=== PATIENT | female | born 2000 | race Caucasian/White ===

== ENCOUNTER 2024-04-04 06:13 | Day surgery (SDC) | payer SELFPAY ==
[2024-04-04 06:25] VITALS: BP 114/59; PULSE 56; TEMP 36.2; O2SAT 100; BMI 20.7
[2024-04-04 06:33] LABS: Basophils Absolute Auto 0.1 10^3/uL (0.0-0.1); Basophils Percent Auto 0.7 % (0.2-2.0); Eosinophils Absolute Auto 0.1 10^3/uL (0.0-0.7); Eosinophils Percent Auto 0.8 % (0.9-7.0); Hematocrit 32.3 % (36.0-48.0); Hemoglobin 10.9 g/dL (12.0-16.0); Immature Granulocytes Abs Auto 0.02 10^3/uL (0.00-0.03); Immature Granulocytes Pct Auto 0.3 % (0.0-0.5); Lymphocytes Absolute Auto 2.7 10^3/uL (1.2-3.8); Lymphocytes Percent Auto 34.9 % (20.5-60.0); Mean Corpuscular HGB Conc 33.7 g/dL (29.9-35.2); Mean Corpuscular Hemoglobin 31.1 pg (26.7-34.0); Monocytes Absolute Auto 0.6 10^3/uL (0.3-0.8); Monocytes Percent Auto 7.2 % (1.7-12.0); Neutrophils Absolute Auto 4.3 10^3/uL (1.4-6.5); Neutrophils Percent Auto 56.1 % (43.0-75.0); Platelet Count 169 10^3/uL (150-450); Red Blood Count 3.51 10^6/uL (4.20-5.40); Red Cell Distribution Width 13.5 % (11.0-15.0); White Blood Count 7.7 10^3/uL (4.0-11.0)
[2024-04-04 07:14] LABS: HCG Quantitative 86028 mIU/mL
[2024-04-04] MEDS: LACTATED RINGER'S SOLUTION 1,000 ML 50 ML IV (07:14)
--- NOTE | 2024-04-04 08:18 | PM.ONB ---
Brief Operative Note Date of procedure: 04/04/24 Pre-op diagnosis general: missed Post-op diagnosis: same as pre-op Procedure: NAME OF PROCEDURE: [D&C suction ] PROCEDURE: The patient was taken back to the OR where she was given general anesthesia without difficulty. She was then placed in dorsal lithotomy position, prepped and draped in the normal sterile fashion. A weighted speculum was placed in the patient's vagina and the anterior lip of the cervix was identified and grasped with a single-tooth tenaculum. The patient was then gently dilated using Hegar dilators after we had sounded roughly to 10 cm. The suction curette was then tested. The suction curette was then placed in the patient's uterus and products of conception were removed using an 9-Grenadian suction curette. ?Excellent hemostasis was noted. The patient tolerated the procedure well. Sponge, lap, and needle counts were correct x 2. All instruments were then removed from the patient's vagina. The patient was taken to the Recovery Room in stable condition. ?? Anesthesia: MAC Surgeon: Quinn Wilkins Estimated blood loss (mL): 10 Pathology: other (poc) Condition: stable Disposition: PACU Urinary Catheter Management Urinary Catheter Management Urethral: Cath placed during this visit: no
[2024-04-04 08:19] VITALS: BP 83/41; PULSE 60; TEMP 36.3; O2SAT 95
[2024-04-04 08:34] VITALS: BP 88/51; PULSE 53; O2SAT 97
[2024-04-04 08:50] VITALS: BP 93/63; PULSE 61; O2SAT 100
[2024-04-04 09:30] VITALS: BP 134/54; PULSE 88; O2SAT 100
== END 2024-04-04 09:30 | disposition home or self-care (01) ==
PROVIDERS: PCP Family Medicine; Visit Provider Obstetrics & Gynecology
PROC: (CPT 1965; principal; 2024-04-04 07:30)
DX: O02.1 Missed abortion (principal)
CPT/HCPCS: 59820; 36415; 84702; 85025; 86900; 86901; 88305; J1094; J2704

== ENCOUNTER 2025-08-28 15:53 | Emergency (ER) | payer MEDICAID, SELFPAY ==
--- OUTSIDE RECORDS SUMMARY | 2025-08-14 13:00 | XMS_ITS | Encounter Summary ---
Author Organization [employer] [facility] Address [facility] [id number] [address] [place] [address] Care Team Providers Care See Supervisor Name Role Phone Anne Turner MD Primary Care Provider Brunilda gr Reason for Visit * Reason Comments Care Patient presents for their 6 week visit. Encounter Details Date Type Department Care Team (Latest Contact Info) Description 08/14/2025 1:00 PM ED[facility] [place] [address] [place] [address] care and examination (Primary Dx); Lactating mother Social History Tobacco Use Types Packs/Day Years Used Date Smoking Tobacco: Former Vaping/E-cigarettes Smokeless Tobacco: Never Alcohol Use Standard Drinks/Week Comments Not Currently 0 (1 standard drink = 0.6 oz pur e alcohol) socially C Utilities Answer Date Recorded In the past 12 months has [employer], gas, oil, or water [employer] threatened to shut off services in your home? No 07/01/2025 Social Connection and Isolation Panel Answer Date Recorded In a typical week, how many times do you talk on the phone with family, friends, or neighbors? Three times a week 07/01/2025 How often do you get togethe r with friends or relatives? Three times a week 07/01/2025 How often do you attend chur ch or mormonism services? Patient declined 07/01/2025 Do you belong to any clubs o r organizations such as worship groups, unions, fraternal or athletic groups, or school groups? Patient declined 07/01/2025 How often do you attend meet ings of the clubs or organizations you belong to? Patient declined 07/01/2025 Are you , , di vorced, , never , or living with a partner? Never 07/01/2025 Overall Financial Resource Strain (CARDIA) Answe r Date Recorded How hard is it for you to pa y for the very basics like food, housing, medical care, and heating? Not hard at all 07/01/2025 PHQ-2 Answer Date Recorded Total Score 0 07/01/2025 [facility] Occup[facility] ional [facility] - Occupational Stress Questionnaire Answer Date Recorded Do you feel stress - tense, restless, nervous, or anxious, or unable to sleep at night because your mind is troubled all the time - these days? Only a little 07/01/2025 Exercise Vital Sign Answer Date Recorde d On average, how many days pe r week do you engage in moderate to strenuous exercise (like a brisk walk)? Patient declined On average, how many minutes do you engage in exercise at this level? Patient declined 07/01/2025 PRAPARE - Transportation Answer Date Re corded In the past 12 months, has l ack of transportation kept you from medical appointments or from getting medications? No 06/14 In the past 12 months, has l ack of transportation kept you from meetings, work, or from getting things needed for daily living? No 07/01/2025 Housing Instability Answer Date Recorde d Are you worried or concerned that in the next two months you may not have stable housing that you own, rent or stay in as a part of a household? No 07/03/2025 Childcare Answer Date Recorded Do problems getting child ca re make it difficult for you to work or study? No 07/01/2025 Employment Answer Date Recorded Do you need help finding a [facility] career center and/or a training program? No 07/01/2025 Hunger Screening Answer Date Recorded Within the past 12 months we worried whether our food would run out before we got money to buy more. Never True 08/14/2025 Within the past 12 months th e food we bought just didn't last and we didn't have money to get more. Never True 08/14/2025 Purpose - Life Answer Date Recorded I have a purpose and direction in my life. Stron gly Agree 07/01/2025 Comments No Sex and Gender Information Value Date Recorded Sex Assigned at Not on file Legal Sex Female 11:58 AM EDT Gender Identity Not on file Sexual Orientation Not on file documented as of this encounter Last Filed Vital Signs Vital Sign Reading Time Taken Comments Blood Pressure 100/62 08/14/2025 12:59 PM EDT Pulse - - Temperature - - Respiratory Rate - - Oxygen Saturation - - Inhaled Oxygen Concentration - - Weight 60.3 kg (133 lb) 08/14/2025 12:59 PM EDT Height 170.2 cm (5' 7 ) 08/14/2025 12:59 PM EDT Body Mass Index 20.83 08/14/2025 12:59 PM EDT documented in this encounter Patient Instructions * Attachments The following attachments cannot be sent through Care Everywhere. * control after having a baby (German) * Common problems (German) documented in this encounter Progress Notes * Nicolasa Pierre, TAMMY-PATIENT SAFETY TECH - 08/14/2025 1:00 PM EDT visit Subjective: Corinne Esparza is a 25 y.o. female who presents for a visit. She is 6 weeks following a spontaneous vaginal delivery. The patient denies pain. She is well. The patient has emotional concerns. She feels very anxious / on edge constantly. She was prescribed zoloft at her last visit but did not go pick medication up. EDPS: 7. She denies suicidal / homicidalideations. She has been to a therapist in the past and states she will call to schedule an appointment. Patient is not sexually active. Patient desires none for contraception, states she is not planning to be sexually active at this time. The following portions of the patient's history were reviewed and updated as appropriate: allergies, current medications, past family history, past medical history, past social history, past surgicalhistory and problem list. Review of Systems Pertinent items are noted in HPI. Objective: BP 100/62 Ht 170.2 cm (5' 7 ) Wt 60.3 kg (133 lb) LMP 09/30/2024 Yes BMI 20.83 kg/m?? General: alert, appears stated age and cooperative Breasts: exam deferred Lungs: clear to auscultation bilaterally Heart: regular rate and rhythm Abdomen: soft, non-tender; bowel sounds normal; no masses, no organomegaly Assessment: Corinne was seen today for care. Diagnoses and all orders for this visit: care and examination Lactating mother Plan: 1. Resume all normal activity, including sex with condoms. 2. Discussed risks/benefits/alternatives of contraception options. Advised to wait at least 18 months for future conception. Patient desires: abstinence. 3. All questions answered. 4. Continue with vitamin until finished , and then switch to a woman's multivitamin. 5. Educational material provided. 6. Next pap due 2027. 7. Follow up for annual die mounter exam and / or sooner as needed. LULU Youssef APRN-CNP 08/14/25 1329 documented in this encounter Plan of Treatment Not on file documented as of this encounter Visit Diagnoses Diagnosis care and examination- Primary Lactating mother care and examination of lactating mother documented in this encounter Additional Health Concerns Assessment Noted Time PHQ-9 Depression Total Score: 0 07/01/20 25 6:44 PM EDT documented as of this encounter Care Teams See Supervisor Relationship Specialty Start Date End Date Anne Turner MD PCP - General Family Medicine 10/07/23 documented as of this encounter
[2025-08-28 15:57] VITALS: BP 119/83; PULSE 77; TEMP 36.6; O2SAT 100; BMI 20.4
--- OUTSIDE RECORDS SUMMARY | 2025-08-28 16:10 | XMS_ITS | Encounter Summary ---
Author Organization [employer] tem Address [facility] [id number] [address] [place] [address] Care Team Providers Care Manager Of Radiology Name Role Phone Anne Turner MD Primary Care Provider Brunilda gr Encounter Details Date Type Department Care Team (Late st Contact Info) Description 04/24/2025 Telephone [facility] Obst[facility]necology [address] [place] [address] Erich Luz Elena [place] Social History Tobacco Use Types Packs/Day Years Used Date Smoking Tobacco: Former Vaping/E-cigarettes Smokeless Tobacco: Never Alcohol Use Standard Drinks/Week Comments Not Currently 0 (1 standard drink = 0.6 oz pur e alcohol) socially [facility] Utilities Answer Date Recorded In the past 12 months has th e electric, gas, oil, or water company threatened to shut off services in your home? No 04/23/2025 Overall Financial Resource Strain (CARDIA) Answe r Date Recorded How hard is it for you to pa y for the very basics like food, housing, medical care, and heating? Not hard at all 02/05/2025 PHQ-2 Answer Date Recorded Total Score 2 02/05/2025 PRAPARE - Transportation Answer Date Re corded In the past 12 months, has l ack of transportation kept you from medical appointments or from getting medications? No 04/14 In the past 12 months, has l ack of transportation kept you from meetings, work, or from getting things needed for daily living? No 04/23/2025 Housing Instability Answer Date Recorde d Are you worried or concerned that in the next two months you may not have stable housing that you own, rent or stay in as a part of a household? No 04/23/2025 Childcare Answer Date Recorded Do problems getting child ca re make it difficult for you to work or study? No 02/05/2025 Employment Answer Date Recorded Employment Unknown 04/25/2019 Hunger Screening Answer Date Recorded Within the past 12 months we worried whether our food would run out before we got money to buy more. Never True 04/23/2025 Within the past 12 months th e food we bought just didn't last and we didn't have money to get more. Never True 04/23/2025 Comments Yes Sex and Gender Information Value Date Recorded Sex Assigned at Not on file Legal Sex Female 11:58 AM EDT Gender Identity Not on file Sexual Orientation Not on file documented as of this encounter Miscellaneous Notes * Telephone Encounter - Luz Elena Jung MA - 04/24/2025 3:12 PM EDT Pt called inquiring about labs that were done while in ED on 04/23/25. Pt has seen labs on [employer] but would like someone to go over them with her. Labs are finalized but have not yet been reviewed bya provider. - Luz Elena Jung MA 04/24/25 3:14 PM * Telephone Encounter - Mireya Lai - 04/24/2025 3:12 PM EDT Pt is requesting to talk with someone about results of labs done in L&D on 04/23/25. Pt is most concerned with her iron levels. Pt states she is very tired all the time. Please advise. Thank you * Telephone Encounter - LULU Ortiz - 04/24/2025 3:12 PM EDT Sent pt a [employer] message documented in this encounter Plan of Treatment Not on file documented as of this encounter Visit Diagnoses Not on filedocumented in this encounter Additional Health Concerns Assessment Noted Time PHQ-9 Depression Total Score: 2 02/06/20 25 9:20 AM EDT documented as of this encounter Care Teams Manager Of Radiology Relationship Specialty Start Date End Date Anne Turner MD PCP - General Family Medicine 10/07/23 documented as of this encounter
--- OUTSIDE RECORDS SUMMARY | 2025-08-28 16:10 | XMS_ITS | Patient Health Record ---
Author Organization [facility]ices Address [address] [place], [place] [id number] Care Team Providers Care Aoc Operations Intelligence Officer Name Role Phone Radha Ricardo Unavailable [phone] Allergies No Known Allergies Reason For Referral No Information Medications Medication SIG (Take, Route, Frequency, Duration) Notes Start Date End Date Status Amoxicillin 500 MG 1 capsule Orally Thr ee times a day; Duration: 7 day(s) 04/08/2022 Not-Taking Zoloft Active Clindamycin HCl 300 MG One capsule Orall y Three times per day; Duration: 6 day(s) 05/13/2022 Active Social History Sex Assigned At : Social History Observation Description Sex Assigned At Female Plan Of Treatment No Information
--- OUTSIDE RECORDS SUMMARY | 2025-08-28 16:10 | XMS_ITS | Clinical Summary ---
Author Organization [facility] Healthcare Address [address] [place] [address] Care Team Providers Care Deflash And Wash Operator Name Role Phone Anne Turner MD Primary Care Provider [phone] Allergies No known active allergies Medications MV & Min w/FA-DHA ( Gummies) 0.18-25 MG chewable tablet Chew Acti ve ferrous sulfate 325 (65 Fe) MG EC tablet Take 325 mg by mouth in the morning and at noon Do not crush, chew, or split. Active Active Problems Problem Noted Date Diagnosed Date Stress 02/09/2024 Family History Medical History Relation Name Comments Parkinsonism Maternal Grandfather Migraines Mother CLL Mother's Sister Cancer Mother's Sister Relation Name Status Comments Father Alive Maternal Grandfather Mother Alive Mother's Sister Sister 2 Social History Tobacco Use Types Packs/Day Years Used Date Smoking Tobacco: Never Smokeless Tobacco: Never Tobacco Cessation:Counseling Given: Not Answered Alcohol Use Standard Drinks/Week Comments Yes 0 (1 standard drink = 0.6 oz pur e alcohol) AUDIT-C Answer Date Recorded Q1: How often do you have a drink containing alc ohol? 2-4 times a month 02/09/2024 Q2: How many drinks containi ng alcohol do you have on a typical day when you are drinking? 5 or 6 02/09/2024 Frequency of Binge Drinking Not on file 01/13 PHQ-2 Answer Date Recorded Patient Health Questionnaire-2 Score 3 02/09/2024 Comments No Sex and Gender Information Value Date Recorded Sex Assigned at Not on file Legal Sex Female 6:15 PM EDT Gender Identity Female 12/04/2024 7:27 AM EST Sexual Orientation Not on file Last Filed Vital Signs Vital Sign Reading Time Taken Comments Blood Pressure 102/60 08/09/2024 3:30 PM EDT Pulse 68 02/09/2024 11:45 AM EDT Temperature - - Respiratory Rate - - Oxygen Saturation - - Inhaled Oxygen Concentration - - Weight 58.5 kg (129 lb) 08/09/2024 3:30 PM EDT Height 165.1 cm (5' 5 ) 03/23/2022 12:00 PM EDT Body Mass Index 21.47 03/23/2022 12:00 PM EDT Plan of Treatment Not on file Insurance MEDICAID [place] [address] [id number] Care Teams Deflash And Wash Operator Relationship Specialty Start Date End Date Anne Turner MD PCP - General Family Medicine 03/22/23
--- OUTSIDE RECORDS SUMMARY | 2025-08-28 16:10 | XMS_ITS | Encounter Summary ---
Author Organization [employer] tem Address [id number] [address] [place] [address] Care Team Providers Care Supervisor Al[employer] Fabrication Name Role Phone Anne Turner MD Primary Care Provider Brunilda gr Encounter Details Date Type Department Care Team (Late st Contact Info) Description 06/16/2025 Results Follow-Up [facility] Obstetrics/Gynecology [address] [place] [address] Coleen Demarco, MODEL AND PATTERN SUPERVISOR-[facility] [address] [place] [address] Strep B screen Social History Tobacco Use Types Packs/Day Years Used Date Smoking Tobacco: Former Vaping/E-cigarettes Smokeless Tobacco: Never Alcohol Use Standard Drinks/Week Comments Not Currently 0 (1 standard drink = 0.6 oz pur e alcohol) socially [facility] Utilities Answer Date Recorded In the past 12 months has [employer], gas, oil, or water [employer] threatened to shut off services in your home? No 07/01/2025 Social Connection and Isolation Panel Answer Date Recorded In a typical week, how many times do you talk on the phone with family, friends, or neighbors? Three times a week 07/01/2025 How often do you get togethe r with friends or relatives? Three times a week 07/01/2025 How often do you attend chur or anabaptist services? Patient declined 07/01/2025 Do you belong to any clubs o r organizations such as confucianism groups, unions, fraternal or athletic groups, or [...] Answer Date Recorded Total Score 0 07/01/2025 [facility] - Occupational Stress Questionnaire Answer Date Recorded [...] Recorded Do you need help finding a [employer] career center and/or a training program? No [...] my life. Stron gly Agree 07/01/2025 Comments Yes Sex and Gender Information Value Date Recorded Sex Assigned at Not on file Legal Sex Female 11:58 AM EDT Gender Identity Not on file Sexual Orientation Not on file documented as of this encounter Functional Status documented as of this encounter Plan of Treatment Not on file documented as of this encounter Visit Diagnoses Not on filedocumented in this encounter Additional Health Concerns Assessment Noted Time PHQ-9 Depression Total Score: 2 02/06/20 25 9:20 AM EDT documented as of this encounter Care Teams Supervisor [employer] Relationship Specialty Start Date End Date Anne Turner MD PCP - General Family Medicine 10/07/23 documented as of this encounter
--- OUTSIDE RECORDS SUMMARY | 2025-08-28 16:10 | XMS_ITS | Encounter Summary ---
Author Organization [employer] Address [facility] [id number] [address] [place] [address] Care Team Providers Care Python Architect Name Role Phone Anne Turner MD Primary Care Provider Brunilda gr Encounter Details Date Type Department Care Team (Late st Contact Info) Description 04/23/2025 Telephone [facility] Obstetrics/Gynecology [address] [place] [address] Erich Luz Elena [place] Social History Tobacco Use Types Packs/Day Years [...] on file documented as of this encounter Plan of Treatment Not on file documented as of this encounter Visit Diagnoses Not on filedocumented in this encounter Additional Health Concerns Assessment Noted Time PHQ-9 Depression Total Score: 2 02/06/20 25 9:20 AM EDT documented as of this encounter Care Teams Python Architect Relationship Specialty Start Date End Date Anne Turner MD PCP - General Family Medicine 10/07/23 documented as of this encounter
--- OUTSIDE RECORDS SUMMARY | 2025-08-28 16:10 | XMS_ITS | Encounter Summary ---
Author Organization [facility] Address [facility] [id number] [address] [place] [address] Care Team Providers Care Product Analyst Name Role Phone Anne Turner MD Primary Care Provider Brunilda gr Encounter Details Date Type Department Care Team (Latest Contact Info) Description 06/20/2025 Results Follow-Up [facility] - [place] [address] [place] [address] Nicolasa Pierre, MEDIATOR-TUMBLER MACHINE OPERATOR [address] [place] [address] Ultrasound transabdominal follow up per fetus Social History Tobacco Use Types Packs/Day Years Used Date Smoking Tobacco: Former Vaping/E-cigarettes Smokeless Tobacco: Never Alcohol Use Standard Drinks/Week Comments Not Currently 0 (1 standard drink = 0.6 oz pur e alcohol) socially C Utilities Answer Date Recorded In the past 12 months has [employer], gas, oil, or water [email or web address] threatened to shut off services in your home? No 07/01/2025 Social Connection and Isolation Panel Answer Date Recorded In a typical week, how many times do you talk on the phone with family, friends, or neighbors? Three times a week 07/01/2025 How often do you get togethe r with friends or relatives? Three times a week 07/01/2025 How often do you attend [facility] or episcopalian services? Patient declined 07/01/2025 Do you belong to any clubs o r organizations such as taoist groups, unions, fraternal or athletic groups, or [...] Answer Date Recorded Total Score 0 07/01/2025 [facility] Occupat ional Health - Occupational Stress [...] Recorded Do you need help finding a [employer] career center and/or a training program? No [...] documented as of this encounter Care Teams Product Analyst Relationship Specialty Start Date End Date Gunnerly, Anne Lao MD PCP - General Family Medicine 10/07/23 documented as of this encounter
--- OUTSIDE RECORDS SUMMARY | 2025-08-28 16:11 | XMS_ITS | Clinical Summary ---
Author Organization Guidesly tem Address [id number] [address] [place] [address] Care Team Providers Care Knot Tier Name Role Phone Anne Turner MD Primary Care Provider Brunilda gr Allergies No known active allergies Medications vit no.124/iron/foli c ( VITAMIN ORAL) Take by mouth. Active ibuprofen (MOTRIN) 800 mg tablet Take 1 tablet (800 mg total) by mouth every 8 (eight) hours as needed (cramping). 30 tablet 5 08/14/20 25 Discontinue d(Therapy completed) acetaminophen (TYLENOL) 325 mg tablet Take 3 tablets (975 mg total) by mouth every 8 (eight) hours as needed for pain. 30 tablet 5 08/14/20 25 Discontinue d(Therapy completed) polyethylene glycol (GLYCOLAX) 17 gram/dose powderIndication s:Hemorrhoids, unspecified hemorrhoid type Take 17 g by mouth in the morning. 510 g 3 5 08/14/20 25 Discontinue d(Therapy completed) sertraline (ZOLOFT) 25 mg tabletIndication s: anxiety Take 1 tablet (25 mg total) by mouth in the morning. 30 tablet 5 08/14/20 25 Discontinue d(Patient Never Started This Medication) Active Problems Problem Noted Date Diagnosed Date History of induced 01/15/2025 History of miscarriage 01/15/2025 Resolved Problems Problem Noted Date Diagnosed Date Resolved Date Dizzy 04/23/2025 07/03/2025 Headache 04/23/2025 07/03/2025 Encounters Date Type Department Care Team Description 08/14/2025 1:00 PM EDT Visit [facility] Women's Services [place] [address] care and examination (Primary Dx); Lactating mother 08/14/2025 Travel 07/17/2025 1:00 PM EDT Visit [facility] [place] [address] care following vaginal delivery (Primary Dx); Anemia in , third trimester; Lactating mother; Hemorrhoids, unspecified hemorrhoid type; anxiety 07/17/2025 Travel 07/03/2025 10:50 AM EDT Anesthesia Event [facility] - LD [address] [place] [address] Dwain Briceno MD Gray, Barbara C, PRINCIPAL NETWORK ENGINEER-SAFETY AND SECURITY MANAGER 07/03/2025 5:36 AM EDT - 07/04/2025 5:02 PM EDT Hospital Encounter [facility] [address] [place] [address] Coleen Demarco, PRINCIPAL NETWORK ENGINEER-LUIS ENRIQUEM Anemia in , third trimester Discharge Disposition: Home 07/03/2025 Travel 07/02/2025 1:00 PM EDT [facility] [address] [place] [address] Harper Rivera, [place]: 39w2d 07/02/2025 Travel 07/01/2025 6:38 PM EDT - 07/01/2025 8:12 PM EDT Hospital Encounter [facility] [address] [place] [address] Sarah Carrillo, PRINCIPAL NETWORK ENGINEER-LUIS ENRIQUEM Anemia in , third trimester Discharge Disposition: Home 06/26/2025 11:30 AM EDT Routine [facility] Services - [address] [place] [address] [place]: 38w3d 06/26/2025 Travel 06/23/2025 10:19 PM EDT - 06/24/2025 6:28 AM EDT Hospital Encounter [facility] - LDRP [address] [place] [address] Luz Us MD Anemia in , third trimester Discharge Disposition: Home 06/20/2025 12:01 PM EDT - 06/20/2025 1:40 PM EDT Hospital Encounter [facility] [address] [place] [address] Luz Us MD Anemia in , third trimester Discharge Disposition: Home 06/20/2025 9:03 AM EDT - 06/20/2025 12:00 PM EDT Hospital Encounter [facility] - Ultrasound [address] [address] Nicolasa Pierre, PRINCIPAL NETWORK ENGINEER-MANAGER ART Uterine size-date discrepancy in third trimester Discharge Disposition: Home 06/20/2025 Results Follow-Up [facility] Women's Services - [place] [address] [place] [address] Nicolasa Pierre, PRINCIPAL NETWORK ENGINEER-MANAGER ART Ultrasound transabdominal follow up per fetus 06/20/2025 Travel 06/19/2025 11:45 AM EDT Routine [facility] Women's Services - [place] [address] [place] [address] [place]: 37w3d 06/19/2025 Travel 06/16/2025 Results [facility] [address] [place] [address] Coleen Demarco, PRINCIPAL NETWORK ENGINEER-CNM Strep B screen 06/13/2025 1:36 PM EDT - 06/13/2025 2:24 PM EDT Hospital Encounter [facility] - LDRP [address] [place] [address] Coleen Demarco, PRINCIPAL NETWORK ENGINEER-CNM [place], Anemia in , third trimester Discharge Disposition: Home 06/13/2025 1:00 PM EDT Routine [facility] Obstetric[facility]/Gyneco logy [address] [place] [address] Nicolasa Pierre, PRINCIPAL NETWORK ENGINEER-MANAGER ART [place]: 36w4d 06/13/2025 Travel 06/12/2025 10:00 AM EDT Infusion [facility] On[facility] [address] [place] [phone] Anemia in , third trimester (Primary Dx) 06/12/2025 Travel 06/11/2025 Telephone [facility] Obstetrics/Gyneco logy [address] [place] [address] Luz Elena Jung MA 06/10/2025 9:00 AM EDT Infusion [facility]ia Aguilar [facility] Oncology [address] [place] [phone] Anemia in , third trimester (Primary Dx) 06/07/2025 11:30 AM EDT Infusion [facility] [address] [place] [phone] Anemia in , third trimester (Primary Dx) 06/07/2025 Travel 06/05/2025 9:00 AM EDT Infusion [facility] On[facility] [address] [place] [phone] Anemia in , third trimester (Primary Dx) 06/05/2025 Travel 06/04/2025 Travel 06/03/2025 9:00 AM EDT Infusion [facility] On[facility] [address] [place] [phone] Anemia in , third trimester (Primary Dx) 06/03/2025 Travel 05/28/2025 2:45 PM EDT Routine [facility] Obstetrics/Gyneco logy [address] [place] [address] María Warren MD [place]: 34w2d 05/28/2025 9:30 AM EDT Telemedicine [facility] Benign Hematology [address] [place] [address] Marizol Burden, PRINCIPAL NETWORK ENGINEER-MANAGER ART Anemia complicating , third trimester 05/28/2025 Travel from Last 3 Months Immunizations Immunization Administration Dates Next Due Tdap 04/17/2025 Varicella 07/04/2025() Family History Medical History Relation Name Comments Hypertension Father Hypertension Maternal Grandfather Hypertension Maternal Grandmother Relation Name Status Comments Father Maternal Grandfather Maternal Grandmother Social History Tobacco Use Types Packs/Day Years Used Date Smoking Tobacco: Former Vaping/E-cigarettes Smokeless Tobacco: Never Tobacco Cessation:Counseling Given: Not Answered Alcohol Use Standard Drinks/Week Comments Not Currently 0 (1 standard drink = 0.6 oz pur e alcohol) socially BoardEvalsities Answer Date Recorded In the past 12 months has [email or web address], gas, oil, or water [employer] threatened to shut off services in your home? No 07/01/2025 Social Connection and Isolation Panel Answer Date Recorded In a typical week, how many times do you talk on the phone with family, friends, or neighbors? Three times a week 07/01/2025 How often do you get togethe r with friends or relatives? Three times a week 07/01/2025 How often do you attend [facility] or zoroastrianism services? Patient declined 07/01/2025 Do you belong to any clubs o r organizations such as shinto groups, unions, fraternal or athletic groups, or [...] Answer Date Recorded Total Score 0 07/01/2025 [facility] - Occupational Stress Questionnaire Answer Date Recorded [...] Recorded Do you need help finding a [facility] career center and/or a training program? No [...] on file Sexual Orientation Not on file Last Filed Vital Signs Vital Sign Reading Time Taken Comments Blood Pressure 100/62 08/14/2025 12:59 PM EDT Pulse 58 07/04/2025 3:55 PM EDT Temperature 36.8 C (98.2 F) 07/04/2025 3:55 PM EDT Respiratory Rate 16 07/04/2025 3:55 PM EDT Oxygen Saturation 100% 07/03/2025 12:30 PM EDT Inhaled Oxygen Concentration - - Weight 60.3 kg (133 lb) 08/14/2025 12:59 PM EDT Height 170.2 cm (5' 7 ) 08/14/2025 12:59 PM EDT Body Mass Index 20.83 08/14/2025 12:59 PM EDT Plan of Treatment Health Maintenance Due Date Last Done Comments COVID-19 Vaccine (2024-2 6 season) 2025 03/11/2023, 12/13/2022 Influenza Vaccine 07/15/2025 09/29/2009 Depression Screening 07/01/2026 07/01/2025 Adult BMI Screening 08/14/2026 08/14/2025 Tobacco Screening 08/14/2026 08/14/2025 Pap Smear 02/07/2028 02/06/2025 DTaP,Tdap and Td Vaccines (9 - Td or Tdap) 04/17/2035 04/17/2025, 08/14/2021, 06/25/2013, Additional history exists Medical Devices Not on file Procedures Procedure Name Priority Date/Time Associated Diagnosis Comments ANESTHESIA EPIDURAL BLOCK Routine 07/03/2025 11:11 AM EDT FENTANYL, URINE QUALITATIVE STAT 07/03/2025 7:09 AM EDT DRUG SCREEN, URINE STAT 07/03/2025 7: 09 AM EDT EXTRA TUBES PST TOP Routine 07/03/2025 6 :11 AM EDT EXTRA TUBES Routine 07/03/2025 6:11 AM EDT TYPE AND SCREEN STAT 07/03/2025 6:10 AM EDT CBC (NO DIFF) STAT 07/03/2025 6:10 AM EDT SYPHILIS TOTAL(UNKNOWN SYPHILIS STATUS) STAT 07/03/2025 6:10 AM EDT URINALYSIS STAT 07/01/2025 7:49 PM EDT TYPE AND SCREEN Routine 06/24/2025 12:19 AM EDT CBC (NO DIFF) STAT 06/24/2025 12:19 AM EDT EXTRA TUBES PST TOP Routine 06/24/2025 1 2:18 AM EDT EXTRA TUBES Routine 06/24/2025 12:18 AM EDT SYPHILIS TOTAL(UNKNOWN SYPHILIS STATUS) STAT 06/24/2025 12:18 AM EDT DRUG SCREEN, URINE STAT 06/23/2025 11 :18 PM EDT FENTANYL, URINE QUALITATIVE Routine 06/23/2025 11:18 PM EDT URINALYSIS Routine 06/23/2025 11:18 PM EDT RUPTURE OF MEMBRANE (ALL) STAT 06/20/2025 12:46 PM EDT US PREG TRANSABD FU PER FETU Routine 06/20/2025 9:43 AM EDT Uterine size-date discrepancy in third trimester STREP B SCREEN Routine 06/13/2025 2:26 PM EDT Third trimester PAP SMEAR Routine 02/06/2025 8:50 AM EDT Cervical smear, as part of routine gynecological examination from Last 3 Months or Most Recently Relevant to Health Maintenance Results * PM EPIDURAL (07/03/2025 11:11 AM EDT) Inocencia Keyes APRN-CRNA - 07/03/2025 11:11 AM EDT ADAM Mandel 07/03/2025 11:12 AM Procedure: Epidural Block Patient Location: OB Start Time: 07/03/2025 10:52 AM End Time: 07/03/2025 10:58 AM IV In situ: Peripheral General Information and Staff: Service Provider: ADAM Mandel Placed By: ADAM Mandel Checklist: Patient Identified, IV Checked, Risks and Benefits Discussed, Surgical Consent, Monitors and Equipment Checked, Pre-op Evaluation and Timeout Performed Fire Risk Assessment Score: 0 Epidural: Patient Position: Sitting Prep: Betadine Monitoring: Heart Rate, Security Assurance Specialist, Continuous Pulse Ox, Blood Pressure and Monitor Oxygen Source: Room Air Approach: Midline Location: L3-L4 Injection Technique: YESI w/Air Injection Method: Catheter Secured with: Transparent Dressing and Taped Dressing Type: Transparent, Securing Device and Tape Local Infiltration: Lidocaine 1% Dose: 2 mL Needle and Epidural Catheter: Needle Type: Tuohy Needle Gauge: 18 G Needle Length: 9 cm Needle Insertion Depth: 5 cm Catheter Type: Side Hole Catheter Size: 20 G Catheter at Skin Depth: 11 cm Number of Attempts: 1 Test Dose: Negative and Lidocaine 1.5% with Epinephrine 1:200,000 Dose: 3 mL Date and Time Given: 07/03/2025 10:58 AM Patient Tolerance: Tolerated Well Anesthesia Block Medication Given: bupivacaine in 0.9% NaCl(PF) 0.125 % (1,250 mcg/mL) - epidural 10 mL - 07/03/2025 11:02:00 AM fentaNYL (SUBLIMAZE) injection - epidural 20 mcg - 07/03/2025 11:02:00 AM Injection Assessment: Negative Aspiration for Blood, Negative for S/S of Intravenous or Intrathecal Injection, No Paresthesia on Injection and Negative CSF flow Dwain Briceno MD ANESTHESIA ORDERABLES Final R esult * Fentanyl, Urine Qualitative (07/03/2025 7:09 AM EDT) Only the most recent of2 resultswithin the time period is included. FENTANYL, URINE QUAL. Negative Negative 07/03/2025 3:14 PM EDT [facility] Urine Urine / Unknown 07/03/2025 7 :09 AM EDT 07/03/2025 7:50 AM EDT Narrative [facility] - 07/03/2025 3:14 PM EDT Fentanyl screening cutoff = 5ng/ml This report is intended for use in clinical monitoring or management of patients. us Coleen Demarco PRINCIPAL NETWORK ENGINEER-CNM URINE ORDERABLES Final R esult [facility] [address] [place] [address], * Urine Drug Screen (07/03/2025 7:09 AM EDT) Only the most recent of2 resultswithin the time period is included. AMPHETAMINE/METHAMP Negative Negative 07/03 8:19 AM EDT [facility] Comment:AMPH/METH screening cut off = 1000 ng/mL COCAINE METABOLITE Negative Negative 2024 8:19 AM EDT [facility] Comment:Cocaine screening cu t off value = 300 ng/mL ECSTASY Negative Negative 07/03/2025 8:19 AM EDT [facility] Comment:Ecstasy screening cu t off value = 500 ng/mL METHADONE Negative Negative 07/03/2025 8:19 AM EDT [facility] Comment:Methadone screening cut off value = 300 ng/mL. OPIATES Negative Negative 07/03/2025 8:19 AM EDT [facility] Comment: Opiates screening cut off value = 300 ng/mL This test is used for the detection of codeine, hydrocodone (>1000 ng/mL), morphine and hydromorphone (>900 ng/mL) in urine. OXYCODONE Negative Negative 07/03/2025 8:19 AM EDT [facility] Comment: Oxycodone screening cut off value = 300 ng/mL This test is used for the detection of oxycodone and oxymorphone in urine. PHENCYCLIDINE Negative Negative 07/03/2025 8:19 AM EDT [facility] Comment:Phencyclidine screen ing cut off value = 25 ng/mL CANNABINOIDS Negative Negative 07/03/2025 8:19 AM EDT [facility] Comment:Cannabinoids/THC scr eening cut off value = 50 ng/mL Urine Barbiturates Negative Negative 2024 8:19 AM EDT [facility] Comment:Barbiturates screeni ng cut off value = 200 ng/mL BENZODIAZEPINES Negative Negative 8:19 AM EDT [facility] Comment:Benzodiazepines scre ening cut off value = 200 ng/mL Urine 07/03/2025 7:09 AM EDT 07/03/2025 7:50 AM EDT us Coleen M Nilam PRINCIPAL NETWORK ENGINEER-CNM URINE ORDERABLES Final R esult Performing Organization Address [facility] Co de Phone Number [address] [place] [address], [place] * PST TOP (07/03/2025 6:11 AM EDT) Only the most recent of2 resultswithin the time period is included. Extra Tube Auto Resulted 07/03/2025 8:01 AM EDT [facility] Blood Venous blood / Unknown 07/03/2025 6:11 AM EDT 07/03/2025 6:37 AM EDT Coleen Demarco PRINCIPAL NETWORK ENGINEER-CNM LAB BLOOD ORDERABLES Fin al Result Performing Organization Address [facility] de Phone Number [address] [place] [address], [place] * Syphilis Total (Unknown Syphilis Status) (07/03/2025 6:10 AM EDT) Only the most recent of2 resultswithin the time period is included. SYPHILIS TOTAL <0.2 <=0.8 AI 07/03/2025 3:43 PM EDT [facility] Blood Venous blood / Unknown Venipuncture / Unknown 07/03/2025 6:10 AM EDT 07/03/2025 6:16 AM EDT Narrative [facility] - 07/03/2025 3:43 PM EDT NON REACTIVE No serologic evidence of infection to Treponema pallidum. Repeat testing may be considered in patients with suspected acute or primary syphilis in 2 to 4 weeks. Coleenchris Demarco PRINCIPAL NETWORK ENGINEER-CNM LAB BLOOD ORDERABLES Fin al Result [facility] [address] [place] [address], [place] [phone] * (ABNORMAL) CBC without diff (07/03/2025 6:10 AM EDT) Only the most recent of2 resultswithin the time period is included. WBC 8.3 4 - 11 x10E9/L 07/03/2025 6:26 AM EDT [facility] RBC Count 3.82 3.8 - 5.2 X10E12/L 07/03/2025 6:26 AM EDT [facility] Hemoglobin 12.1 11.7 - 15.5 g/dL 07/03/2025 6:26 AM EDT [facility] Hematocrit 35.4 35 - 47 % 07/03/2025 6:26 AM EDT [facility] MCV 93 80 - 100 fL 07/03/2025 6:26 AM EDT [facility] MCH 31.7 27 - 34 pg 07/03/2025 6:26 AM EDT [facility] MCHC 34.2 32 - 36 g/dL 07/03/2025 6:26 AM EDT [facility] RDW 16.8(H) 11.5 - 15 % 07/03/2025 6:26 AM EDT [facility] Platelet Count 148(L) 150 - 450 X10E9/L 07/03/2025 6:26 AM EDT [facility] MPV 8.9 7 - 12 fL 07/03/2025 6:26 AM EDT [facility] Blood Venous blood / Unknown Venipuncture / Unknown 07/03/2025 6:10 AM EDT 07/03/2025 6:16 AM EDT Coleen Demarco [facility] LAB BLOOD ORDERABLES Fin al Result Performing Organization Address [facility] Co de Phone Number [facility] [address] [place] [address] [place] [address], [place] * Type and screen (07/03/2025 6:10 AM EDT) Only the most recent of2 resultswithin the time period is included. ABO A 07/03/2025 9:04 AM EDT [facility] RH Positive 07/03/2025 9:04 AM EDT [facility] Antibody Screen Negative 07/03/2025 9:04 AM EDT [facility] Blood Venous blood / Unknown Venipuncture / Unknown 07/03/2025 6:10 AM EDT 07/03/2025 6:16 AM EDT Coleen M Nilam [facility] BLOOD BANK TEST ORDERABL ES Edited Result - Final Performing Organization Address City/[facility] Co de Phone Number [facility] [address] [place] [address] [place] [address], [address] [place] [address], [place] * Urinalysis (07/01/2025 7:49 PM EDT) Only the most recent of2 resultswithin the time period is included. COLOR Yellow Yellow 07/01/2025 8:28 PM EDT [facility] TURBIDITY Clear Clear 07/01/2025 8:28 PM EDT [facility] SPECIFIC GRAVITY 1.015 1.003 - 1.035 07/01/2025 8:28 PM EDT [facility] NITRITE Negative Negative 07/01/2025 8:28 PM EDT [facility] PH,URINE 6.5 5.0 - 8.5 07/01/2025 8:28 PM EDT [facility] LEUKOCYTE ESTERASE Negative Negative 07/01/2025 8:28 PM EDT [facility] PROTEIN Negative Negative 07/01/2025 8:28 PM EDT [facility] KETONES (URINE) Negative Negative 8:28 PM EDT [facility] UROBILINOGEN 0.2 eu/dL 0.2 eu/dL, 1.0 eu/dL 07/01/2025 8:28 PM EDT [facility] BILIRUBIN (URINE) Negative Negative 07/01/2025 8:28 PM EDT [facility] BLOOD/HGB Negative Negative 07/01/2025 8:28 PM EDT [facility] GLUCOSE (URINE) Negative Negative, 250 mg/dL 07/01/2025 8:28 PM EDT [facility] Urine Urine / Unknown 07/01/2025 7 :49 PM EDT 07/01/2025 7:52 PM EDT us Sarah Carrillo PRINCIPAL NETWORK ENGINEER-CNM URINE ORDERABLES Fi nal Result [facility] [address] [place] [address] [place] [address], [place] * Rupture of membrane (ALL) (06/20/2025 12:46 PM EDT) RUPTURE OF MEMBRANE Negative Negative 06/20/2025 1:13 PM EDT [facility] Swab Vaginal structure / Unknown 06/20/2025 12:46 PM EDT 06/20/2025 12:50 PM EDT us Luz Us MD BODY FLUIDS AND STOOLS ORDERA BLES Final Result [facility] [address] [place] [address], [place] * Ultrasound transabdominal follow up per fetus (06/20/2025 9:43 AM EDT) Anatomical Region Laterality Modality OB-ELEMENT BURNER Ultrasound 06/20/2025 1:51 PM EDT Narrative 06/20/2025 1:52 PM EDT US PREG TRANSABD FU PER FETU: 06/20/2025 9:09 AM Clinical: Third trimester discrepancy with size and dates. Real-time transabdominal sonography fetus performed There is a single intrauterine in a cephalic presentation. Cardiac activity: 137 bpm. Cervical region is obscured by head. Growth parameters are as follows. BPD- 9.1 cm, 36 weeks 6 day. Head circumference 31.9 cm, 36 weeks 0 day. Abdomen circumference 30.9 cm, 34 weeks 6 day. Femur length 6.8 cm, 35 week 1 day. Average gestational age is 35 week 5 days.. This is appropriate growth compared with ultrasound of 03/18/2025 Estimated weight is 2634 g, 5 pounds and 13 ounces, 13%.. Amniotic fluid volume: MANNY measures 10.8 cm. DVP 3.5 cm. The placenta is posterior, away from cervical os. survey was not performed. Maternal Adnexa: No masses seen. Impression: * Single intrauterine cephalic presentation with cardiac activity. * Average gestational age 35 week 5 day with appropriate interval growth. * Ultrasound PHIL 07/20/2025. * Estimated weight 13%. This is a standard (Level I) ultrasound, which cannot exclude all anomalies with certainty. Finalized by Aj Felix MD on 06/20/2025 1:52 PM Procedure Note Aj Felix MD - 06/20/2025 US PREG TRANSABD FU PER FETU: 06/20/2025 9:09 AM Clinical: Third trimester discrepancy with size and dates. Real-time transabdominal sonography fetus performed There is a single intrauterine in a cephalic presentation. Cardiac activity: 137 bpm. Cervical region is obscured by head. Growth parameters are as follows. BPD- 9.1 cm, 36 weeks 6 day. Head circumference 31.9 cm, 36 weeks 0 day. Abdomen circumference 30.9 cm, 34 weeks 6 day. Femur length 6.8 cm, 35 week 1 day. Average gestational age is 35 week 5 days.. This is appropriate growth compared with ultrasound of 03/18/2025 Estimated weight is 2634 g, 5 pounds and 13 ounces, 13%.. Amniotic fluid volume: MANNY measures 10.8 cm. DVP 3.5 cm. The placenta is posterior, away from cervical os. survey was not performed. Maternal Adnexa: No masses seen. Impression: * Single intrauterine cephalic presentation with cardiacactivity. * Average gestational age 35 week 5 day with appropriate intervalgrowth. * Ultrasound PHIL 07/20/2025. * Estimated weight 13%. This is a standard (Level I) ultrasound, which cannot exclude allfetal anomalies with certainty. Finalized by Aj Felix MD on 06/20/2025 1:52 PM Nicolasa Pierre PRINCIPAL NETWORK ENGINEER-MANAGER ART [facility] [place] ORDERABLES Final Result * Strep B screen (06/13/2025 2:26 PM EDT) CULTURE RESULTS NEGATIVE FOR GROUP B STREPTOCOCCUS BY NUCLEIC ACID AMPLIFICATION 06/14/2025 11:59 PM EDT [facility] Swab (Vagina/Rectum) 06/13/2025 2:26 PM EDT 06/13/2025 2:26 PM EDT Nicolasa Pierre PRINCIPAL NETWORK ENGINEER-MANAGER ART MICROBIOLOGY - GENERAL O RDERABLES Final Result [facility] [address] [place] [address], [place] [phone] * Pap Smear (02/06/2025 8:50 AM EDT) 02/06/2025 8:50 AM EDT 02/06/2025 9:02 AM EDT Narrative [facility] - 02/15/2025 1:22 PM EDT [facility] [address] [place] [address] Gynecologic Cytology Consultation Patient Name:CORINNE ESPARZA:2000 (Age: 24)Gender:FTaken:02/06/2025Reported:02/15/2025Physician(s):WILLIE Vergara CNP ([phone])Copy To: Rec. #:[id number]: #[id number] Final Cytologic Interpretation ThinPrep Pap Test (Cervical): Satisfactory for evaluation. A transformation zone component was not noted. The lack of a transformation zone component in a patient is not unusual. NEGATIVE FOR INTRAEPITHELIAL LESION OR MALIGNANCY. [facility] [place]/02/15/2025 Interpretation performed at [facility], [address] [place] [address], License number: [id number]. Electronically Signed Out By FILIPE Clifton(ASCP) Date of Last Menstrual Period: 09/30/24 Other Clinical Conditions: Z01.419 Motorcycle Designer exam wo/abn findings Z34.92 Source of Specimen ThinPrep Pap Test (Cervical) Thin Prep Pap (ELEMENT BURNER) Fee Code(s): G0145 The Pap test is a screening test with an inherent, but low, probability of error. The Pap test is primarily effective for the diagnosis and prevention of squamous cell carcinoma. Regular screening is critical for prevention. ThinPrep liquid-based slides, which meet the Legal Summer Intern criteria for automated screening, have been screened by the ThinPrep Imaging System (as of 07/31/07) along with an additional manual rescreening by a stopboard assembler and, if indicated, by a pathologist. us Nicolasa LAWSON PATHOLOGY/CYTOLOGY ORDER TREE Final Result COPATH from Last 3 Months or Most Recently Relevant to Health Maintenance Insurance [facility] MEDICAID Advance Directives * Full Code (Latest Code Status on File) Date Activated Date Inactivated Comments 07/03/2025 5:56 AM 07/04/2025 7:27 PM Care Teams Knot Tier Relationship Specialty Start Date End Date Anne Turner MD PCP - General Family Medicine 10/07/23
--- OUTSIDE RECORDS SUMMARY | 2025-08-28 16:11 | XMS_ITS | Encounter Summary ---
Author Organization [facility] Address [address] [place] [address] Care Team Providers Care Assembler Chassis Name Role Phone Anne Turner MD Primary Care Provider [phone] Encounter Details Date Type Department Care Team (Late st Contact Info) Description 08/30/2023 Abstract [facility] [address] [place] [address] Gaby Wood, CNM [address], [place] [id number] Social History Tobacco Use Types Packs/Day Years Used Date Smoking Tobacco: Never Tobacco Cessation:Counseling Given: Not Answered Alcohol Use Standard Drinks/Week Comments Never 0 (1 standard drink = 0.6 oz pur e alcohol) Comments Unknown Sex and Gender Information Value Date Recorded Sex Assigned at Not on file Legal Sex Female 6:15 PM EDT Gender Identity Female 12/04/2024 7:27 AM EST Sexual Orientation Not on file documented as of this encounter Plan of Treatment Not on file documented as of this encounter Visit Diagnoses Not on filedocumented in this encounter Care Teams Assembler Chassis Relationship Specialty Start Date End Date Anne Turner MD PCP - General Family Medicine 03/22/23 documented as of this encounter
--- OUTSIDE RECORDS SUMMARY | 2025-08-28 16:11 | XMS_ITS | Encounter Summary ---
Author Organization [facility] Address [facility] [id number] [address] [place] [address] Care Team Providers Care Pointer Helper Name Role Phone Anne Turner MD Primary Care Provider Brunilda gr Encounter Details Date Type Department Care Team (Latest Contact Info) Description 08/14/2025 Travel Social History Tobacco Use Types Packs/Day Years [...] often do you attend chur ch or taoist services? Patient declined 07/01/2025 Do you belong to any clubs o r organizations such as muslim groups, unions, fraternal or athletic groups, or [...] Answer Date Recorded Total Score 0 07/01/2025 [facility] - Occupational Stress [...] Recorded Do you need help finding a [facility] career center and/or a training [...] documented as of this encounter Care Teams Pointer Helper Relationship Specialty Start Date End Date Gunnerly, Anne Lao MD PCP - General Family Medicine 10/07/23 documented as of this encounter
--- OUTSIDE RECORDS SUMMARY | 2025-08-28 16:12 | XMS_ITS | CCD ---
Author Organization [facility] Care Team Providers Care Province Archivist Name Role Phone PHYSICIAN, DEFAULT Unavailable Unavailable PHYSICIAN, DEFAULT Unavailable Unavailable SHENDGE, VITHAL Unavailable Unavailable SHENDGE, VITHAL Unavailable Unavailable SELF, REFERRED Unavailable Unavailable SELF, REFERRED Unavailable Unavailable PHYSICIAN, DEFAULT Unavailable Unavailable PHYSICIAN, DEFAULT Unavailable Unavailable SELF, REFERRED Unavailable Unavailable POOL, ELODIA E Unavailable Unavailable ANNE LLANES Unavailable Unavailable BEN, DR MEREDITH Friedman Attending Unavailable BEN, DR MEREDITH Friedman Consulting Unavailable BEN, DR MEREDITH Friedman Admitting Unavailable SHRADDHA, DR ANNE Lao Primary Care Unavailable MAGDALENO ESCALANTE Attending Unavailable RYLEE WOOD Attending Unavailable NAIF WOODERIE Lauren Referring Unavailable FLORO, RYLEE L Referring Unavailable FLORORYLEE Attending Unavailable FLORO, RYLEE L Referring Unavailable FLOROMINHE Lauren Attending Unavailable RYLEE WOOD Attending Unavailable Anne Llanes MD Primary Care Provider Unavailable Primary Care Provider Anne Kelly MD Primary Care Provider Anne Llanes MD Primary Care Provider Anne Medina MD Primary Care Provider NICOLASA PIERRE Referring Unavailable WONDERLY, ANNE B Primary Care Unavailable ROBBIE SAM Attending Unavailable KRQUINNZER, NICOLASA M Referring Unavailable ALENALY, ANNE B Primary Care Unavailable KRQUINNZER NICOLASA M Attending Unavailable KRSANTA, NICOLASA M Referring Unavailable SHRADDHA, ANNE B Primary Care Unavailable KRQUINNZER, NICOLASA M Referring Unavailable ALENALY, ANNE B Primary Care Unavailable KRQUINNZER, NICOLASA M Referring Unavailable ALENALY, ANNE B Primary Care Unavailable KRQUINNZER, NICOLASA M Referring Unavailable ALENALY, ANNE B Primary Care Unavailable NAWAF SWENSON Admitting Unavailable NAWAF SWENSON Attending Unavailable SHRADDHA ANNE B Primary Care Unavailable KROTZER, NICOLASA M Referring Unavailable WONDERLY, ANNE B Primary Care Unavailable KROTZER, NICOLASA M Referring Unavailable WONDERLY, ANNE B Primary Care Unavailable KROTZER, NICOLASA M Referring Unavailable WONDERLY, ANNE B Primary Care Unavailable KROTZER, NICOLASA M Referring Unavailable WONDERLY, ANNE B Primary Care Unavailable KROTZER, NICOLASA M Referring Unavailable WONDERLY, ANNE B Primary Care Unavailable KROTSETH, NICOLASA M Referring Unavailable WONDERLY, ANNE B Primary Care Unavailable ROSIE CLARK Admitting Unavailable ROSIE CLARK Attending Unavailable WONDERLY, ANNE B Primary Care Unavailable KROTNICOLASA HINDS M Attending Unavailable KRQUINNZER, NICOLASA M Referring Unavailable WONDERLY, NANE B Primary Care Unavailable JOSSUE, TIBERIU S Admitting Unavailable JOSSUE, TIBERIU S Attending Unavailable WONDERLY, ANNE B Primary Care Unavailable JOSSUE, TIBERIU S Admitting Unavailable JOSSUE, TIBERIU S Attending Unavailable WONDERLY, ANNE B Primary Care Unavailable ANTONY RAMIREZ Admitting Unavailable ANTONY RAMIREZ Attending Unavailable WONDERLY, ANNE B Primary Care Unavailable ROSIE CLARK Admitting Unavailable ROSIE CLARK Attending Unavailable WONDERLY, ANNE B Primary Care Unavailable KRNICOLASA PRATT M Attending Unavailable WONDERLY, ANNE B Referring Unavailable WONDERLY, ANNE B Primary Care Unavailable WONDERLY, ANNE B Referring Unavailable WONDERLY, ANNE B Primary Care Unavailable ROSIE CLARK Attending Unavailable WONDERLY, ANNE B Referring Unavailable WONDERLY, ANNE B Primary Care Unavailable NICOLASA PIERRE M Referring Unavailable WONDERLY, ANNE B Primary Care Unavailable WONDERLY, ANNE B Referring Unavailable WONDERLY, ANNE B Primary Care Unavailable NICOLASA PIERRE M Referring Unavailable WONDERLY, ANNE B Primary Care Unavailable WONDERLY, ANNE B Referring Unavailable WONDERLY, ANNE B Primary Care Unavailable WONDERLY, ANNE B Referring Unavailable WONDERLY, ANNE B Primary Care Unavailable MARÍA BUI Attending Unavailable WONDERLY, ANNE B Referring Unavailable WONDERLY, ANNE B Primary Care Unavailable NICOLASA PIERRE M Attending Unavailable WONDERLY, ANNE B Referring Unavailable WONDERLY, ANNE B Primary Care Unavailable GENEVIEVE TOURE Attending Unavailable WONDERLY, ANNE B Referring Unavailable WONDERLY, ANNE B Primary Care Unavailable MARÍA BUI Attending Unavailable WONDERLY, ANNE B Referring Unavailable WONDERLY, ANNE B Primary Care Unavailable KROTSETH, NICOLASA M Attending Unavailable WONDERLY, ANNE Lao Referring Unavailable WONDERLY, ANNE Lao Primary Care Unavailable WONDERLY, ANNE Lao Referring Unavailable WONDERLY, ANNE Lao Primary Care Unavailable WONDERLY, ANNE Lao Referring Unavailable WONDERLY, ANNE Lao Primary Care Unavailable RACHEL RIVERA Attending Unavailable WONDERLY, ANNE B Referring Unavailable WONDERLY, ANNE Lao Primary Care Unavailable WONDERLY, ANNE Lao Referring Unavailable WONDERLY, ANNE Lao Primary Care Unavailable WONDERLY, ANNE Lao Referring Unavailable WONDERLY, ANNE Lao Primary Care Unavailable Medications Current Medications Medication Drug Class(es) Dates Sig (Normalized) Sig (Original) amoxicillin 500 mg oral capsule (2 sources) Penicillin-class Antibacterial End: 02-06-2025 take 1 capsule by mouth in the morning, then take 1 capsule by mouth at bedtime amoxicillin (AMOXIL) 500 mg capsule Take 1 capsule (500 mg total) by mouth in the morning and 1 capsule (500 mg total) before bedtime. 02/06/2025 Discontinued (Therapy completed) ondansetron 8 mg disintegrating oral tablet (8 sources) Serotonin-3 Receptor Antagonist Start: 07-12-2024 End: 09-08-2024 take 1 tablet by mouth every eight hours for nausea ondansetron ODT (Zofran-ODT) 8 MG disintegrating tablet Indications: Nausea and vomiting during prior to 22 weeks gestation Take 1 tablet (8 mg) by mouth every 8 (eight) hours if needed for nausea or vomiting 20 tablet 1 08/09/2024 09/08/2024 Active MV & Min w/FA-DHA ( Gummies) 0.18-25 MG chewable tablet (9 sources) MV & Mi n w/FA-DHA ( Gummies) 0.18-25 MG chewable tablet Chew Active vit no.124/iron/folic ( VITAMIN ORAL) (20 sources) vit no.124/iron/folic ( VITAMIN ORAL) Take by mouth. vit no. 124/iron/folic ( VITAMIN ORAL) Take by mouth. Active Completed/Discontinued Medications Medication Drug Class(es) Dates Sig (Normalized) Sig (Original) acetaminophen 325 mg oral tablet (5 sources) Start: 07-04-2025 End: 08-14-2025 take 3 tablets by mouth every eight hours as needed for pain acetaminophen (TYLENOL) 325 mg tablet Take 3 tablets (975 mg total) by mouth every 8 (eight) hours as needed for pain. 30 tablet 07/04/2025 08/14/2025 Discontinued (Therapy completed) Start: 07-03-2025 End: 07-04-2025 take 1 tablet by mouth every four hours as needed for pain 650 mg, oral, Every 4 hours PRN, mild pain - pain scale 1-3, Starting on Tue07/03/25 at 1225, benzocaine 200 mg/ml / menthol 5 mg/ml topical spray (1 source) Standardized Chemical Allergen Start: 07-03-2025 End: 07-04-2025 1 Application, topical, As needed, pain, perineum discomfort, Starting on Tue07/03/25 at 1223, , May keep at bedside bisacodyl 10 mg rectal suppository (1 source) Stimulant Laxative Start: 07-04-2025 End: 07-04-2025 10 mg, rectal, Once as needed, constipation, no relief from docusate or senna/docusate, Starting on Tue07/04/25 at 0000, For 1 dose, , Start 2nd day Look-alike/sound-al katina medication - verify indication for use. calcium chloride 0.0014 meq/ml / potassium chloride 0.004 meq/ml / sodium chloride 0.103 meq/ml / sodium lactate 0.028 meq/ml injectable solution (2 sources) Start: 07-03-2025 End: 07-03-2025 take 125 mL intravenously every hour 125 mL/hr, intravenous, Continuous, Starting on Tue07/03/25 at 0600, For 1 day, L&D Pre-Delivery 1 ml carboprost 0.25 mg/ml injection (1 source) Prostaglandin Analog Start: 07-03-2025 End: 07-04-2025 inject 250 ug by intramuscular injection once as needed 250 mcg, intramuscular, Once as needed, hemorrhage management, Starting on Tue07/03/25 at 1223, For 1 dose, , Administer as directed by the provider for hemorrhage management. DO NOT ADMINISTER IV. Contraindicated if patient has a history of asthma or cardiovascular disease. docusate sodium 100 mg oral capsule (1 source) Start: 07-03-2025 End: 07-04-2025 take 100 mg by mouth twice daily 100 mg, oral, 2 times daily, First dose on Tue07/03/25 at 1245, , Look-alike/sound-al katina medication - verify indication for use. ferrous sulfate 325 mg oral tablet (20 sources) Start: 04-10-2025 End: 07-04-2025 take 1 tablet by mouth in the morning ferrous sulfate 325 (65 FE) MG tablet Indications: Anemia in , third trimester Take 1 tablet (325 mg total) by mouth in the morning. 90 tablet 1 04/10/2025 07/04/2025 Discontinued (Stop Taking at Discharge) take 1 tablet by mouth in the mo rning ferrous sulfate 325 (65 Fe) MG EC tablet Take 325 mg by mouth in the morning and at noon Do not crush, chew, or split. Active hydrocortisone 25 mg/ml topical cream (1 source) Corticosteroid Start: 07-03-2025 End: 07-04-2025 1 Application, rectal, As needed, hemorrhoids, Starting on Tue07/03/25 at 1223, , May keep at bedside, Indications: hemorrhoids ibuprofen 800 mg oral tablet (5 sources) Nonsteroidal Anti-inflammatory Drug Start: 07-03-2025 End: 08-14-2025 take 1 tablet by mouth every eight hours as needed ibuprofen (MOTRIN) 800 mg tablet Take 1 tablet (800 mg total) by mouth every 8 (eight) hours as needed (cramping). 30 tablet 07/04/2025 08/14/2025 Discontinued (Therapy completed) iron sucrose (VENOFER) 200 mg in sodium chloride 0.9 % 100 mL IVPB (5 sources) Start: 06-12-2025 End: 06-12-2025 200 mg, intravenous, at 440 mL/hr, Administer over 15 Minutes, Once, On Tue06/12/25 at 1000, For 1 dose, Monitor patient for hypersensitivity reactions for at least 30 minute,s after the infusion. AVOID the use of H1 antihistamines, such as diphenhydramine, as this may worsen hypersensitivity reactions. Have resuscitation equipment and medications available. Monitor patient for hypersensitivity reactions for at least 30 minutes after the infusion. AVOID the use of H1 antihistamines, such as diphenhydramine, as this may worsen hypersensitivity reactions. Have resuscitation equipment and medications available. Start: 06-10-2025 End: 07-28-2025 200 mg, intravenous, at 440 mL/hr, Administer over 15 Minutes, Once, On Tue06/10/25 at 0930, For 1 dose, Monitor patient for hypersensitivity reactions for at least 30 minute,s after the infusion. AVOID the use of H1 antihistamines, such as diphenhydramine, as this may worsen hypersensitivity reactions. Have resuscitation equipment and medications available. Monitor patient for hypersensitivity reactions for at least 30 minutes after the infusion. AVOID the use of H1 antihistamines, such as diphenhydramine, as this may worsen hypersensitivity reactions. Have resuscitation equipment and medications available. Start: 06-07-2025 End: 06-07-2025 200 mg, intravenous, at 440 mL/hr, Administer over 15 Minutes, Once, On Tue06/07/25 at 1145, For 1 dose, Monitor patient for hypersensitivity reactions for at least 30 minute,s after the infusion. AVOID the use of H1 antihistamines, such as diphenhydramine, as this may worsen hypersensitivity reactions. Have resuscitation equipment and medications available. Monitor patient for hypersensitivity reactions for at least 30 minutes after the infusion. AVOID the use of H1 antihistamines, such as diphenhydramine, as this may worsen hypersensitivity reactions. Have resuscitation equipment and medications available. Start: 06-05-2025 End: 06-05-2025 200 mg, intravenous, at 440 mL/hr, Administer over 15 Minutes, Once, On Tue06/05/25 at 0930, For 1 dose, Monitor patient for hypersensitivity reactions for at least 30 minute,s after the infusion. AVOID the use of H1 antihistamines, such as diphenhydramine, as this may worsen hypersensitivity reactions. Have resuscitation equipment and medications available. Monitor patient for hypersensitivity reactions for at least 30 minutes after the infusion. AVOID the use of H1 antihistamines, such as diphenhydramine, as this may worsen hypersensitivity reactions. Have resuscitation equipment and medications available. Start: 06-03-2025 End: 06-03-2025 200 mg, intravenous, at 440 mL/hr, Administer over 15 Minutes, Once, On Tue06/03/25 at 0915, For 1 dose, Monitor patient for hypersensitivity reactions for at least 30 minute,s after the infusion. AVOID the use of H1 antihistamines, such as diphenhydramine, as this may worsen hypersensitivity reactions. Have resuscitation equipment and medications available. Monitor patient for hypersensitivity reactions for at least 30 minutes after the infusion. AVOID the use of H1 antihistamines, such as diphenhydramine, as this may worsen hypersensitivity reactions. Have resuscitation equipment and medications available. lanolin 1000 mg/ml topical cream (1 source) Start: 07-03-2025 End: 07-04-2025 1 Application, topical, As needed, sore/cracked nipples, Starting on Tue07/03/25 at 1223, , May keep at bedside 1 ml methylergonovine maleate 0.2 mg/ml injection (1 source) Ergot Derivative Start: 07-03-2025 End: 07-04-2025 200 mcg, intramuscular, Once as needed, hemorrhage management, Starting on Tue07/03/25 at 1223, For 1 dose, , Administer as directed by the provider for hemorrhage treatment. DO NOT ADMINISTER IV. Contraindicated if patient has a sensitivity or Systolic BP greater than 140 or Diastolic BP greater than 90. Look-alike/sound-a like medication - verify indication for use. miSOPROStol 0.2 mg oral tablet (1 source) Prostaglandin E1 Analog Start: 07-03-2025 End: 07-04-2025 take 800 ug under the tongue once as needed 800 mcg, sublingual, Once as needed, hemorrhage management, Starting on Tue07/03/25 at 1223, For 1 dose, , Administer as directed by the provider for hemorrhage management.Use only if Hypertensive and Asthmatic Look-alike/sound-a like medication - verify indication for use. 1 ml oxytocin 10 unt/ml injection (2 sources) Oxytocic Start: 07-03-2025 End: 07-04-2025 inject 10 [IU] by intramuscular injection once as needed 10 Units, intramuscular, Once as needed, hemorrhage management, Starting on Tue07/03/25 at 1223, For 1 dose, Administer as directed by provider. oxytocin (PITOCIN) bolus from bag solution 10 Units (1 source) Start: 07-03-2025 End: 07-04-2025 10 Units, intravenous, Administer over 30 Minutes, Once as needed, post-delivery hemostasis, Starting on Tue07/03/25 at 1035, For 1 dose, , Administer via programmable pump with lactated ringers solution oxytocin (PITOCIN) infusion 30 units/500 mL in lactated ringers (0.06 units/mL premix) (1 source) Start: 07-03-2025 End: 07-03-2025 1-20 richy-units/min (1-20 mL/hr), intravenous, Titrated, Starting on Tue07/03/25 at 0645, L&D Pre-Delivery, Administer via programmable infusion pump. Starting rate is 1 milliunit/minute.T itrate by 2 milliunit/min every 30 minutes until 5 or less contractions occur in a 10 minute segment, averaged over a 30 minute period. Discontinue infusion for the following abnormal FHR tracings: -Category 3 FHR -Category 2 FHR with significant decelerations for greater than 50% of contractions, lasting longer than 60 minutes despite conservative therapeutic interventions -Minimal variability without accelerations that persist for 60 minutes despite conservative therapeutic interventions -Prolonged deceleration not resolved with conservative therapeutic interventions *Tachysystole is defined by the NICHD as more than five contractions in ten minutes, averaged over a 30-minute window., When Tachysystole is present while oxytocin is infusing, and heart rate (FHR) tracing is: Category 1: 1. Perform a maternal position change and give IV bolus of Lactated Ringers 500mL at a rate of 968 mLs/hour for a max of 1,000 mLs, observe for ten minutes. 2. If tachysystole continues, then decrease oxytocin rate by half, observe for 20 minutes, and notify provider. 3. If tachysystole does not resolve, discontinue oxytocin and notify provider. Category 2 with moderate variability and no significant decelerations: 1. Decrease oxytocin rate by half, change maternal position, give IV bolus of Lactated Ringers 500mL at a rate of 968 mLs/hour for a max of 1000 mLs, observe for 20 minutes, and notify provider. 2. If tachysystole does not resolve, discontinue oxytocin and notify provider. Category 2 with significant decelerations or Category 3: 1. Discontinue oxytocin, change maternal position, give IV bolus of Lactated Ringers 500mL at a rate of 968 mLs/hour for a max of 1000 mLs, administer oxygen via non-rebreather mask at 10L, and notify provider. If after at least a 30-minute period of observation, tachysystole resolves and pre-oxytocin checklist criteria is met, may restart oxytocin infusion at: Half of last infusing rate if oxytocin is off for less than 40 minutes. Beginning rate if oxytocin is off for greater than 40 minutes. [Maximum dose 20 milliunits/min unless specifically ordered otherwise by provider]. 1 mL/hour = 1 richy-unit/min PNV,calcium 20-oxsu-qdzqb acid ( PLUS) 27 mg iron- 1 mg tablet 1 tablet (1 source) Start: 07-03-2025 End: 07-04-2025 take 1 tablet by mouth once daily 1 tablet, oral, Daily, First dose on Tue07/03/25 at 1245, polyethylene glycol 3350 [id number] mg powder for oral solution (2 sources) Osmotic Laxative Start: 07-17-2025 End: 08-14-2025 polyethylene glycol (GLYCOLAX) 17 gram/dose powder Indications: Hemorrhoids, unspecified hemorrhoid type Take 17 g by mouth in the morning. 510 g 3 07/17/2025 08/14/2025 Discontinued (Therapy completed) sertraline 25 mg oral tablet (2 sources) Serotonin Reuptake Inhibitor Start: 07-17-2025 End: 08-14-2025 take 1 tablet by mouth in the morning sertraline (ZOLOFT) 25 mg tablet Indications: anxiety Take 1 tablet (25 mg total) by mouth in the morning. 30 tablet 07/17/2025 08/14/2025 Discontinued (Patient Never Started This Medication) 125 ml sodium chloride 9 mg/ml prefilled syringe (9 sources) Start: 07-03-2025 End: 07-04-2025 take 3 mL intravenously every eight hours 3 mL, intravenous, Every 8 hours, First dose on Tue07/03/25 at 1245, , Flush peripheral line per protocol Start: 07-03-2025 End: 07-04-2025 3 mL, intravenous, Every 12 hours scheduled, First dose on Tue07/03/25 at 1045, Start: 07-03-2025 End: 07-04-2025 3 mL, intravenous, As needed , line care, to maintain patency, Starting on Tue07/03/25 at 1223, Start: 06-12-2025 End: 06-12-2025 take 25 mL intravenously every hour as needed 25 mL/hr, intravenous, Continuous PRN, When mainline IV needed., Starting on Tue06/12/25 at 0957, Match IVF to base solution of product being administered to ensure compatibility. Start: 06-10-2025 End: 06-10-2025 take 25 mL intravenously every hour as needed 25 mL/hr, intravenous, Continuous PRN, When mainline IV needed., Starting on Tue06/10/25 at 0928, Match IVF to base solution of product being administered to ensure compatibility. Start: 06-07-2025 End: 06-07-2025 take 25 mL intravenously every hour as needed 25 mL/hr, intravenous, Continuous PRN, When mainline IV needed., Starting on Tue06/07/25 at 1137, Match IVF to base solution of product being administered to ensure compatibility. Start: 06-05-2025 End: 06-05-2025 take 25 mL intravenously every hour as needed 25 mL/hr, intravenous, Continuous PRN, When mainline IV needed., Starting on Tue06/05/25 at 0904, Match IVF to base solution of product being administered to ensure compatibility. Start: 06-03-2025 End: 06-03-2025 take 25 mL intravenously every hour as needed 25 mL/hr, intravenous, Continuous PRN, When mainline IV needed., Starting on Tue06/03/25 at 0900, Match IVF to base solution of product being administered to ensure compatibility. 10 ml tranexamic acid 100 mg/ml injection (1 source) Antifibrinolytic Agent Start: 07-03-2025 End: 07-04-2025 take 1 dose intravenously once 1,000 mg, intravenous, Administer over 10 Minutes, As needed, hemostasis/ hemorrhage management, Starting on Tue07/03/25 at 1223, For 2 doses, , As directed by the provider for hemostasis/ hemorrhage management. Give slow IV push over 10 minutes, may repeat one time 30 minutes after initial dose. witch chalo 500 mg/ml medicated pad (1 source) Start: 07-03-2025 End: 07-04-2025 1 Application, topical, As needed, hemorrhoids, Starting on Tue07/03/25 at 1223, , May keep at bedside Problems Active Problems Problem Classification Problem Date Documented Date Episodic/Chronic Abdominal pain (2 sources) Pelvic and perineal pain; Translations: [Vaginal pain] Onset: 07-01-2025 Episodic Adjustment disorders (9 sources) Stress; Translations: [Reaction to severe stress, unspecified] Onset: 02-09-2024 02-09-2024 Chronic Anxiety disorders (1 source) Other specified anxiety disorders; Translations: [Other specified anxiety disorders] Onset: 07-17-2025 Chronic Disorders of teeth and jaw (4 sources) Other specified disorders of teeth and supporting structures; Translations: [OTH SPEC DISORDERS TEETH SUPP STRCT] Onset: 04-11-2022 Episodic Early or threatened labor (1 source) False labor, unspecified; Translations: [False labor, unspecified] Onset: 06-23-2025 Episodic Hemorrhoids (2 sources) Hemorrhoids; Translations: [Unspecified hemorrhoids] Onset: 07-17-2025 07-17-2025 Episodic Menstrual disorders (2 sources) Amenorrhea; Translations: [Amenorrhea, unspecified] 06-18-2024 Chronic Other complications of (20 sources) Anemia of ; Translations: [Anemia complicating , third trimester] Onset: 04-10-2025 04-10-2025 Chronic Other complications of (3 sources) Anemia in mother complicating , childbirth AND/OR puerperium; Translations: [Anemia complicating , third trimester] 05-23-2025 Chronic Other complications of (3 sources) Anemia complicating , third trimester; Translations: [Anemia complicating , third trimester] Onset: 04-10-2025 Chronic Other complications of (2 sources) Vomiting of , unspecified; Translations: [Mild hyperemesis gravidarum, unspecified as to episode of care or not applicable] 08-09-2024 Episodic Other complications of (2 sources) Finding related to ; Translations: [ related conditions, unspecified, second trimester] 08-09-2024 Episodic Other complications of (1 source) Uterine size for dates discrepancy; Translations: [Uterine size-date discrepancy, third trimester] 06-19-2025 Episodic Other complications of (4 sources) Pain in pelvis; Translations: [Other specified related conditions, third trimester] Onset: 07-01-2025 07-01-2025 Episodic Other complications of (4 sources) Benign gestational thrombocytopenia; Translations: [Other diseases of the blood and blood-forming organs and certain disorders involving the immune mechanism complicating , third trimester] Onset: 07-03-2025 07-03-2025 Episodic Other complications of (1 source) Other specified related conditions, third trimester; Translations: [Other specified related conditions, third trimester] Onset: 07-01-2025 Episodic Other complications of (2 sources) Uterine size-date discrepancy, third trimester; Translations: [Uterine size-date discrepancy, third trimester] Onset: 06-19-2025 Episodic Other complications of (2 sources) Other mental disorders complicating the puerperium; Translations: [Mental disorders of mother, condition or complication] Onset: 07-17-2025 07-17-2025 Episodic Other female genital disorders (1 source) Vaginal odor; Translations: [Other specified noninflammatory disorders of vagina] 02-06-2025 Episodic Other female genital disorders (15 sources) Vaginal discharge; Translations: [Other specified noninflammatory disorders of vagina] Onset: 04-23-2025 02-06-2025 Episodic Other non-traumatic joint disorders (4 sources) Pain in right knee; Translations: [PAIN IN RIGHT KNEE] Onset: 02-17-2018 Episodic Other and delivery including normal (20 sources) test positive; Translations: [Encounter for test, result positive] Onset: 01-15-2025 Resolved: 07-04-2025 07-17-2024 Episodic Residual codes; unclassified (1 source) Gestation period, 32 weeks; Translations: [32 weeks gestation of ] 05-12-2025 Episodic Residual codes; unclassified (1 source) Gestation period, 38 weeks; Translations: [38 weeks gestation of ] 06-26-2025 Episodic Residual codes; unclassified (5 sources) Gestation period, 39 weeks; Translations: [39 weeks gestation of ] Onset: 07-01-2025 07-02-2025 Episodic Residual codes; unclassified (1 source) 39 weeks gestation of ; Translations: [39 weeks gestation of ] Onset: 07-01-2025 Episodic Residual codes; unclassified (1 source) 38 weeks gestation of ; Translations: [38 weeks gestation of ] Onset: 06-26-2025 Episodic Syncope (1 source) Vasovagal syncope; Translations: [Syncope and collapse] 04-23-2025 Episodic Unclassified (2 sources) Unknown / UNK(Unknown) Onset: 02-17-2018 Unclassified (1 source) Scheduled Induction Onset: 07-03-2025 Unclassified (1 source) Difficulty Urinating Onset: 06-23-2025 Unclassified (1 source) Decreased Movement Onset: 06-13-2025 Unclassified (1 source) Outpatient Infusion Onset: 06-03-2025 Unclassified (1 source) Rupture of Membranes Onset: 04-23-2025 Unclassified (1 source) Routine Visit Onset: 03-06-2025 Unclassified (1 source) Initial Visit Onset: 01-15-2025 Past or Other Problems Problem Classification Problem Date Documented Date Episodic/Chronic Conditions associated with dizziness or vertigo (20 sources) Dizziness; Translations: [Dizziness and giddiness] Onset: 04-23-2025 Resolved: 07-03-2025 04-23-2025 Episodic Headache; including migraine (20 sources) Headache; Translations: [Headache] Onset: 04-23-2025 Resolved: 07-03-2025 04-23-2025 Episodic Mood disorders (20 sources) Mood disorders Onset: 02-09-2024 Resolved: 02-05-2025 02-09-2024 Other complications of (2 sources) Vomiting of ; Translations: [Vomiting of , unspecified] 07-12-2024 Episodic Other complications of (20 sources) Late entry into care; Translations: [Supervision of with insufficient care, unspecified trimester] Onset: 01-15-2025 01-15-2025 Episodic Other complications of (20 sources) Backache; Translations: [Back pain in ] Onset: 03-06-2025 03-06-2025 Episodic Other female genital disorders (1 source) Other specified noninflammatory disorders of vagina; Translations: [Other specified noninflammatory disorders of vagina] Onset: 02-06-2025 Episodic Other female genital disorders (4 sources) Uterine contractions present; Translations: [Other specified conditions associated with female genital organs and menstrual cycle] Onset: 07-01-2025 Resolved: 07-03-2025 07-01-2025 Episodic Other screening for suspected conditions (not mental disorders or infectious disease) (1 source) Encounter for other screening follow-up; Translations: [Encounter for other screening follow-up] Onset: 03-18-2025 Episodic Residual codes; unclassified (20 sources) History of induced termination of ; Translations: [Other specified postprocedural states] Onset: 01-15-2025 01-15-2025 Episodic Residual codes; unclassified (20 sources) H/O: miscarriage; Translations: [Personal history of other complications of , childbirth and the puerperium] Onset: 01-15-2025 01-15-2025 Episodic Residual codes; unclassified (1 source) 32 weeks gestation of ; Translations: [32 weeks gestation of ] Onset: 05-13-2025 Episodic Unclassified (2 sources) High risk heterosexual behavior; Translations: [High risk heterosexual behavior] Onset: 06-27-2017 Episodic Results Test Name Value Interpretation Reference Range Facility CBC (NO DIFF)on 07-03-2025 Erythrocyte distribution wid th (RBC) [Ratio] 16.8 % High 11.5-15 [facility] Comment on above: Performed By: #### C AJITH, 43481-5, 80889-5, [facility], 13152-4, 10492-8, 15191-0 #### [facility] ([id number]) [address], [address] [place] [address] Hematocrit (Bld) [Volume fraction] 35.4 % Normal 35-47 [facility] Comment on above: Performed By: #### C AJITH, 76223-3, 01316-1, [facility], 58156-7, 43255-3, 45113-2 #### [facility] ([id number]) [address], [address] [place] [address] Hemoglobin (Bld) [Mass/Vol] 12.1 g/dL Normal 11.7-15. 5 [facility] Comment on above: Performed By: #### Grady CANSECO, 28877-7, 67206-7, [facility], 93081-4, 64474-4, 65820-6 #### [facility] ([id number]) [address], [address] [place] [address] MCH (RBC) [Entitic mass] 31.7 pg Normal 27-34 [facility] Comment on above: Performed By: #### C BC, 25164-3, 54313-0, AHP, 84855-5, 96918-3, 17882-8 #### [facility] ([id number]) [address], [address] [place] [address] MCHC (RBC) [Mass/Vol] 34.2 g/dL Normal 32-36 [facility] Comment on above: Performed By: #### Grady CANSECO, 86559-0, 43286-4, AHP, 30332-7, 64355-9, 41041-2 #### [facility] ([id number]) [address], [address] [place] [address] MCV (RBC) [Entitic vol] 93 fL Normal 80-100 P [facility] Comment on above: Performed By: #### Grady CANSECO, 81860-8, 43382-8, AHP, 90974-5, 76788-6, 82012-2 #### [facility] ([id number]) [address], [address] [place] [address] Platelet mean volume (Bld) [Entitic vol] 8.9 fL Normal 7-12 [facility] Comment on above: Performed By: #### [place], 08[address]-5, 02519-4, AHP, 06297-5, 24761-3, 23975-5 #### [facility] ([id number]) [address] [place] [address] Platelets (Bld) [#/Vol] 148 10*3/uL Low 150-450 [facility] Comment on above: Performed By: #### Grady CANSECO, 26582-0, 30888-7, AHP, 68187-8, 07971-1, 59266-7 #### [facility] ([id number]) [address], [address] [place] [address] RBC COUNT 3.82 X10E12/L Normal 3.8-5.2 [facility] Comment on above: Performed By: #### C , 29525-0, 71437-9, P, 84716-4, 26823-8, 23540-9 #### [facility] ([id number]) [address], [address] [place] [address] WBC (Bld) [#/Vol] 8.3 10*3/uL Normal 4-11 [facility] Comment on above: Performed By: #### C , 40122-8, 14506-9, P, 15429-1, 74291-2, 65026-2 #### [facility] ([id number]) [address], [address] [place] [address] CBC without diffon 5 Erythrocyte distribution wid th (RBC) [Ratio] 16.8 % High 11.5 - 15 % [facility] Hematocrit (Bld) [Volume fraction] 35.4 % 35 - 47 % [facility] Hemoglobin (Bld) [Mass/Vol] 12.1 g/dL 11.7 - 15.5 g/dL [facility] Interpretation and review of laboratory results Abnormal [facility] MCH (RBC) [Entitic mass] 31.7 pg 27 - 34 pg [facility] MCHC (RBC) [Mass/Vol] 34.2 g/dL 32 - 3 6 g/dL [facility] MCV (RBC) [Entitic vol] 93 fL 80 - 100 fL [facility] Platelet mean volume (Bld) [Entitic vol] 8.9 fL 7 - 12 fL [facility] Platelets (Bld) [#/Vol] 148 10*3/uL Low [facility] RBC (Bld) [#/Vol] 3.82 10*6/uL [facility] WBC LM Ql (Sput) 8.3 [facility] DRUG SCREEN, URINEon 025 AMPHETAMINE/METHAMP Negative Normal Negative [facility] Comment on above: Result Comment: AMPH /METH screening cut off = 1000 ng/mL Performed By: #### C AJITH, 60603-0, 19571-6, AHP, 45560-0, 85088-8, 22650-8 #### [facility] ([id number]) [address], [address] [place] [address] BARBITURATES Negative Normal Negative [facility] Comment on above: Result Comment: Denita iturates screening cut off value = 200 ng/mL Performed By: #### Grady CANSECO, 35449-2, 12208-1, AHP, 56704-1, 32233-0, 68209-9 #### [facility] ([id number]) [address], [address] [place] [address] BENZODIAZEPINES Negative Normal Negative [facility] Comment on above: Result Comment: Favian odiazepines screening cut off value = 200 ng/mL Performed By: #### Grady CANSECO, 99561-3, 01889-2, AHP, 77021-2, 35540-4, 35287-2 #### [facility] ([id number]) [address], [address] [place] [address] CANNABINOIDS Negative Normal Negative [facility] Comment on above: Result Comment: Lito abinoids/THC screening cut off value = 50 ng/mL Performed By: #### Grady CANSECO, 42409-4, 63144-8, AHP, 77140-8, 62627-0, 38093-8 #### [facility] ([id number]) [address], [address] [place] [address] COCAINE METABOLITE Negative Normal Negative [facility] Comment on above: Result Comment: Coca ine screening cut off value = 300 ng/mL Performed By: #### Grady CANSECO, 10558-1, 33177-9, AHP, 79867-8, 31041-5, 59124-3 #### [facility] ([id number]) [address], [address] [place] [address] ECSTASY Negative Normal Negative [facility] Comment on above: Result Comment: Ecst asy screening cut off value = 500 ng/mL Performed By: #### Grady CANSECO, 95404-1, 64654-0, P, 98268-2, 23079-9, 04182-6 #### [facility] ([id number]) [address], [address] [place] [address] METHADONE Negative Normal Negative [facility] Comment on above: Result Comment: Meth adone screening cut off value = 300 ng/mL. Performed By: #### C AJITH, 27867-2, 36097-6, P, 44858-9, 07409-4, 75292-1 #### [facility] ([id number]) [address], [address] [place] [address] OPIATES Negative Normal Negative [facility] Comment on above: Result Comment: Opia issi screening cut off value = 300 ng/mL This test is used for the detection of codeine, hydrocodone (>1000 ng/mL), morphine and hydromorphone (>900 ng/mL) in urine. Performed By: #### Grady CANSECO, 07653-5, 79878-5, P, 93332-1, 83232-1, 48139-5 #### [facility] ([id number]) [address], [address] [place] [address] OXYCODONE Negative Normal Negative [facility] Comment on above: Result Comment: Oxyc odone screening cut off value = 300 ng/mL This test is used for the detection of oxycodone and oxymorphone in urine. Performed By: #### Grady CANSECO, 00469-5, 93147-1, P, 60648-4, 97916-4, 62289-4 #### [facility] ([id number]) [address], [address] [place] [address] PHENCYCLIDINE Negative Normal Negative [facility] Comment on above: Result Comment: Phen cyclidine screening cut off value = 25 ng/mL Performed By: #### C AJITH, 90007-7, 68225-6, [facility], 04776-2, 93627-0, 48418-3 #### [facility] ([id number]) [address], [address] [place] [address] FENTANYL, URINE QUALITATIVEo n 07-03-2025 FENTANYL, URINE QUAL. Negative Normal Negative [facility] Comment on above: Order Comment: Fenta nyl screening cutoff = 5ng/mlThis report is intended for use in clinicalmonitoring or management of patients. Performed By: #### C AJITH, 84564-0, 76717-3, [facility], 41549-5, 91242-0, 92724-8 #### [facility] ([id number]) [address], [address] [place] [address] Fentanyl, Urine Qualitativeo n 07-03-2025 fentaNYL+Norfentanyl Screen Ql (U) Negative Negative [facility] Interpretation and review of laboratory results Normal [facility] Fentanyl screening cutoff = 5ng/ml This report is intended for use in clinical monitoring or management of patients. [facility] PST TOPon 07-03-2025 Extra Tube Auto Resulted [facility] SYPHILIS TOTAL(UNKNOWN SYPHI LIS STATUS)on 07-03-2025 SYPHILIS TOTAL <^0.2 Normal <=0.8 [facility] Comment on above: Order Comment: NON R EACTIVENo serologic evidence of infection to Treponema pallidum. Repeat testing may be considered in patients with suspected acute or primary syphilis in 2 to 4 weeks. Performed By: #### C AJITH, 58103-7, 37411-9, [facility], 70998-4, 66821-1, 69116-4 #### [facility] ([id number]) [address], [address] [place] [address] Syphilis Total (Unknown Syph ilis Status)on 07-03-2025 T. pallidum IgG+IgM IA Ql (S) NINF [facility] T. pallidum IgG+IgM IA Ql (S )on 07-03-2025 Interpretation and review of laboratory results Normal [facility] NON REACTIVE No serologic evidence of infection to Treponema pallidum. Repeat testing may be considered in patients with suspected acute or primary syphilis in 2 to 4 weeks. [facility] TYPE AND SCREENon 07-03-2025 ABO_INTEP A Normal [facility] Comment on above: Performed By: #### C BC, 97399-4, 74924-8, P, 76375-7, 50251-6, 15967-2 #### [facility] ([id number]) [address], [address] [place] [address] RH_INTEP Positive Normal [facility] Comment on above: Performed By: #### C , 14564-3, 68638-3, P, 57225-9, 86575-9, 73482-2 #### [facility] ([id number]) [address], [address] [place] [address] Type and screenon 07-03-2025 ABO and Rh group Nom (Bld) A [facility] ABO and Rh group Nom (Bld) Positive [facility] Blood group antibody screen.cells I+II+III Ql Negative [facility] Urine Drug Screenon 07-03-20 25 Amphetamines Screen method >1000 ng/mL Ql (U) Negative Negative [facility] Comment on above: AMPH/METH screening cut off = 1000 ng/mL Barbiturates Screen Ql (U) Negative Negative [facility] Comment on above: Barbiturates screeni ng cut off value = 200 ng/mL Benzodiazepines Ql (U) Negative Negative [facility] Comment on above: Benzodiazepines scre ening cut off value = 200 ng/mL Cocaine Ql (U) Negative Negative [facility] Comment on above: Cocaine screening cu t off value = 300 ng/mL Interpretation and review of laboratory results Normal [facility] Methadone (Mec) [Mass/Mass] Negative Negative [facility] Comment on above: Methadone screening cut off value = 300 ng/mL. Methylenedioxymethamphetamin e Screen Ql (U) Negative Negative [facility] Comment on above: Ecstasy screening cu t off value = 500 ng/mL Opiates Ql (U) Negative Negative [facility] Comment on above: Opiates screening cu t off value = 300 ng/mL This test is used for the detection of codeine, hydrocodone (>1000 ng/mL), morphine and hydromorphone (>900 ng/mL) in urine. oxyCODONE [Mass/Vol] Negative Negative [facility] Comment on above: Oxycodone screening cut off value = 300 ng/mL This test is used for the detection of oxycodone and oxymorphone in urine. Phencyclidine Screen method >25 ng/mL Ql (U) Negative Negative [facility] Comment on above: Phencyclidine screen ing cut off value = 25 ng/mL Tetrahydrocannabinol Screen method >50 ng/mL Ql (U) Negative Negative [facility] Comment on above: Cannabinoids/THC scr eening cut off value = 50 ng/mL [facility] URINALYSISon 07-01-2025 Bilirubin Ql (U) Negative Normal Negative [facility] Comment on above: Performed By: #### C AJITH, 10762-4, 82171-7, [facility], 68179-4, 80248-0, 36495-6 #### [facility] ([id number]) [address], [address] [place] [address] BLOOD/HGB Negative Normal Negative [facility] Comment on above: Performed By: #### Grady CANSECO, 21645-6, 69620-4, [facility], 02348-3, 30695-6, 92626-1 #### [facility] ([id number]) [address], [address] [place] [address] Color (U) Yellow Normal Yellow [facility] Comment on above: Performed By: #### Grady CANSECO, 13682-8, 95078-1, AHP, 02541-9, 55391-2, 65101-1 #### [facility] ([id number]) [address], [address] [place] [address] Glucose Ql (U) Negative Normal Negative, 250 mg/dL [facility] Comment on above: Performed By: #### C BC, 19564-6, 77040-0, AHP, 04286-5, 46746-1, 48819-0 #### [facility] ([id number]) [address], [address] [place] [address] Ketones Ql (U) Negative Normal Negative [facility] Comment on above: Performed By: #### [place], 47452-5, 43456-5, AHP, 39138-8, 21396-8, 75601-8 #### [facility] ([id number]) [address], [address] [place] [address] Leukocyte esterase Test stri p Ql (U) Negative Normal Negative [facility] Comment on above: Performed By: #### Grady CANSECO, 92090-9, 15400-7, AHP, 53865-1, 25638-5, 98746-5 #### [facility] ([id number]) [address], [address] [place] [address] Nitrite Ql (U) Negative Normal Negative [facility] Comment on above: Performed By: #### [place], 08513-9, 16858-8, AHP, 87598-9, 71152-3, 23259-3 #### [facility] ([id number]) [address], [address] [place] [address] PH,URINE 6.5 Normal 5.0-8.5 [facility] Comment on above: Performed By: #### [place], 38950-7, 05194-1, AHP, 18479-8, 67521-2, 58350-3 #### [facility] ([id number]) [address] [place] [address] Protein Ql (U) Negative Normal Negative [facility] Comment on above: Performed By: #### Grady CANSECO, 00721-0, 62009-9, AHP, 45428-4, 32295-7, 27296-1 #### [facility] ([id number]) [address], [facility] [address] [place] [address] Specific gravity (U) [Rel density] 1.015 Normal 1.003-1.03 5 [facility] Comment on above: Performed By: #### Grady CANSECO, 48716-6, 90862-1, AHP, 26847-4, 91741-1, 42822-2 #### [facility] ([id number]) [address] [address] TURBIDITY Clear Normal Clear [facility] Comment on above: Performed By: #### Grady CANSECO, 64310-1, 91895-1, AHP, 95896-1, 33607-0, 90689-9 #### [facility] ([id number]) [address] [address] UROBILINOGEN 0.2 eu/dL Normal 0.2 eu/dL, 1.0 eu/dL [facility] Comment on above: Performed By: #### Grady CANSECO, 14699-8, 56083-7, AHP, 33550-6, 61271-9, 30217-4 #### [facility] ([id number]) [address], [facility] [address] [place] [address] CBC (NO DIFF)on 06-24-2025 Erythrocyte distribution wid th (RBC) [Ratio] 17.2 % High 11.5-15 [facility] Comment on above: Performed By: #### Grady CANSECO, 27361-0, 15320-7, AHP, 45666-3, 99357-2, 16140-2 #### [facility] ([id number]) [address], [address] [place] [address] Hematocrit (Bld) [Volume fraction] 32.6 % Low 35-47 [facility] Comment on above: Performed By: #### [place], 36317-8, 05586-2, AHP, 51214-6, 43147-7, 92544-1 #### [facility] ([id number]) [address], [facility] [address] [place] [address] Hemoglobin (Bld) [Mass/Vol] 11.3 g/dL Low 11.7-15. 5 [facility] Comment on above: Performed By: #### Grady CANSECO, 07908-5, 88326-6, AHP, 42711-3, 11111-8, 14845-2 #### [facility] ([id number]) [address] [place] [address] MCH (RBC) [Entitic mass] 32.3 pg Normal 27-34 [facility] Comment on above: Performed By: #### Grady CANSECO, 57730-4, 76483-9, AHP, 73845-0, 10936-7, 45369-4 #### [facility] ([id number]) [address] [place] [address] MCHC (RBC) [Mass/Vol] 34.8 g/dL Normal 32-36 [facility] Comment on above: Performed By: #### [place], 42920-7, 11379-4, AHP, 50387-5, 89830-0, 25949-5 #### [facility] ([id number]) [address] [place] [address] MCV (RBC) [Entitic vol] 93 fL Normal 80-100 [facility] Comment on above: Performed By: #### [place], 79466-2, 49210-6, AHP, 35446-9, 18650-1, 87039-0 #### [facility] ([id number]) [address], [address] [place] [address] Platelet mean volume (Bld) [Entitic vol] 8.8 fL Normal 7-12 [facility] Comment on above: Performed By: #### Grady CANSECO, 61084-5, 39655-2, AHP, 89333-6, 57813-9, 73416-8 #### [facility] ([id number]) [address], [address] [place] [address] Platelets (Bld) [#/Vol] 157 10*3/uL Normal 150-450 [facility] Comment on above: Performed By: #### Grady CANSECO, 14365-4, 55602-9, AHP, 81401-3, 34734-9, 56973-1 #### [facility] ([id number]) [address], [address] [place] [address] RBC COUNT 3.51 X10E12/L Low 3.8-5.2 [facility] Comment on above: Performed By: #### Grady CANSECO, 82381-4, 32795-3, AHP, 53907-9, 65859-2, 88336-2 #### [facility] ([id number]) [address], [address] [place] [address] WBC (Bld) [#/Vol] 8.1 10*3/uL Normal 4-11 [facility] Comment on above: Performed By: #### Grady CANSECO, 76492-1, 17513-7, AHP, 86941-6, 59104-2, 15265-8 #### [facility] ([id number]) [address], [address] [place] [address] SYPHILIS TOTAL(UNKNOWN SYPHI LIS STATUS)on 06-24-2025 SYPHILIS TOTAL <^0.2 Normal <=0.8 [facility] Comment on above: Order Comment: NON R EACTIVENo serologic evidence of infection to Treponema pallidum. Repeat testing may be considered in patients with suspected acute or primary syphilis in 2 to 4 weeks. Performed By: #### Grady CANSECO, 26669-0, 68643-6, AHP, 65618-5, 21796-6, 84700-7 #### [facility] ([id number]) [address], [address] [place] [id number] TYPE AND SCREENon 06-24-2025 ABO_INTEP A [facility] Comment on above: Performed By: #### Grady CANSECO, 76796-9, 10661-2, AHP, 76863-8, 94798-7, 63292-8 #### [facility] ([id number]) [address], [address] [place] [address] RH_INTEP Positive [facility] Comment on above: Performed By: #### Grady CANSECO, 58317-5, 51677-7, AHP, 96720-3, 31533-2, 88348-5 #### [facility] ([id number]) [address], [address] [place] [id number] DRUG SCREEN, URINEon 025 AMPHETAMINE/METHAMP Negative Normal Negative [facility] Comment on above: Result Comment: AMPH /METH screening cut off = 1000 ng/mL Performed By: #### Grady CANSECO, 57603-5, 33923-1, AHP, 85144-7, 80555-3, 96506-2 #### [facility] ([id number]) [address], [address] [place] [address] BARBITURATES Negative Normal Negative [facility] Comment on above: Result Comment: Denita iturates screening cut off value = 200 ng/mL Performed By: #### Grady CANSECO, 62074-1, 71896-6, AHP, 49916-1, 53095-9, 88814-6 #### [facility] ([id number]) [address], [address] [place] [address] BENZODIAZEPINES Negative Normal Negative [facility] Comment on above: Result Comment: Favian odiazepines screening cut off value = 200 ng/mL Performed By: #### C AJITH, 14887-8, 20297-4, AHP, 21014-3, 93758-4, 20160-7 #### [facility] ([id number]) [address], [address] [place] [address] CANNABINOIDS Negative Normal Negative [facility] Comment on above: Result Comment: Lito abinoids/THC screening cut off value = 50 ng/mL Performed By: #### Grady CANSECO, 82132-1, 79487-1, AHP, 26762-9, 04084-3, 33338-9 #### [facility] ([id number]) [address], [address] [place] [address] COCAINE METABOLITE Negative Normal Negative [facility] Comment on above: Result Comment: Coca ine screening cut off value = 300 ng/mL Performed By: #### Grady CANSECO, 50100-2, 00196-7, P, 31009-8, 01251-7, 89360-9 #### [facility] ([id number]) [address], [address] [place] [address] ECSTASY Negative Normal Negative [facility] Comment on above: Result Comment: Ecst asy screening cut off value = 500 ng/mL Performed By: #### Grady CANSECO, 31149-0, 44001-2, P, 49133-2, 39076-1, 33649-6 #### [facility] ([id number]) [address], [address] [place] [address] METHADONE Negative Normal Negative [facility] Comment on above: Result Comment: Meth adone screening cut off value = 300 ng/mL. Performed By: #### Grady CANSECO, 86308-7, 24434-2, AHP, 46018-1, 76500-0, 21932-2 #### [facility] ([id number]) [address], [address] [place] [address] OPIATES Negative Normal Negative [facility] Comment on above: Result Comment: Opia isis screening cut off value = 300 ng/mL This test is used for the detection of codeine, hydrocodone (>1000 ng/mL), morphine and hydromorphone (>900 ng/mL) in urine. Performed By: #### C AJITH, 17412-2, 76379-5, P, 33795-2, 02380-8, 44950-9 #### [facility] ([id number]) [address], [address] [place] [address] OXYCODONE Negative Normal Negative [facility] Comment on above: Result Comment: Oxyc odone screening cut off value = 300 ng/mL This test is used for the detection of oxycodone and oxymorphone in urine. Performed By: #### C AJITH, 59672-4, 64442-1, [facility], 50832-3, 52810-9, 75565-9 #### [facility] ([id number]) [address], [address] [place] [address] PHENCYCLIDINE Negative Normal Negative [facility] Comment on above: Result Comment: Phen cyclidine screening cut off value = 25 ng/mL Performed By: #### C AJITH, 67893-4, 19879-3, [facility], 44040-1, 13931-3, 37494-4 #### [facility] ([id number]) [address], [address] [place] [address] FENTANYL, URINE QUALITATIVEo n 06-23-2025 FENTANYL, URINE QUAL. Negative Normal Negative [facility] Comment on above: Order Comment: Fenta nyl screening cutoff = 5ng/mlThis report is intended for use in clinicalmonitoring or management of patients. Performed By: #### C AJITH, 91379-5, 43081-8, P, 88028-8, 05882-8, 38230-7 #### [facility] ([id number]) [address], [address] [place] [address] URINALYSISon 06-23-2025 Bilirubin Ql (U) Negative Normal Negative [facility] Comment on above: Performed By: #### C BC, 71694-3, 05646-7, AHP, 50248-1, 89735-1, 57573-4 #### [facility] ([id number]) [address], [address] [place] [address] BLOOD/HGB Negative Normal Negative [facility] Comment on above: Performed By: #### [place], 1985[address]-7, 80964-8, AHP, 62497-2, 78810-9, 65511-4 #### [facility] ([id number]) [address], [address] [place] [address] Color (U) Yellow Normal Yellow [facility] Comment on above: Performed By: #### Grady CANSECO, 41221-6, 74735-9, AHP, 06271-3, 35197-6, 57839-2 #### [facility] ([id number]) [address], [address] [place] [address] Glucose Ql (U) Negative Normal Negative, 250 mg/dL [facility] Comment on above: Performed By: #### Grady CANSECO, 54612-1, 02687-2, AHP, 11749-4, 86915-9, 02512-0 #### [facility] ([id number]) [address], [address] [place] [address] Ketones Ql (U) Negative Normal Negative [facility] Comment on above: Performed By: #### [place], 15003-7, 08420-9, AHP, 29694-6, 65377-3, 70061-3 #### [facility] ([id number]) [address], [address] [place] [address] Leukocyte esterase Test stri p Ql (U) Negative Normal Negative [facility] Comment on above: Performed By: #### Grady CANSECO, 20755-4, 40165-2, AHP, 00503-3, 75398-5, 76633-2 #### [facility] ([id number]) [address], [address] [place] [address] Nitrite Ql (U) Negative Normal Negative [facility] Comment on above: Performed By: #### [place], 17038-4, 53516-1, AHP, 94654-9, 89643-9, 67146-7 #### [facility] ([id number]) [address], [address] [place] [address] PH,URINE 7.5 Normal 5.0-8.5 [facility] Comment on above: Performed By: #### [place], 58[address]-9, 99064-0, AHP, 67137-7, 78782-2, 78074-0 #### [facility] ([id number]) [address], [address] [place] [address] Protein Ql (U) Negative Normal Negative [facility] Comment on above: Performed By: #### Grady CANSECO, 34740-6, 31765-3, AHP, 65121-0, 38266-6, 01774-2 #### [facility] ([id number]) [address], [address] [place] [address] Specific gravity (U) [Rel density] 1.010 Normal 1.003-1.03 5 [facility] Comment on above: Performed By: #### [place], 99[address]-9, 65564-9, AHP, 65404-3, 63916-6, 59403-8 #### [facility] ([id number]) [address], [address] [place] [address] TURBIDITY Clear Normal Clear [facility] Comment on above: Performed By: #### [place], 39293-3, 30190-4, AHP, 88352-3, 20894-8, 83943-0 #### [facility] ([id number]) [address], [address] [place] [address] UROBILINOGEN 0.2 eu/dL Normal 0.2 eu/dL, 1.0 eu/dL [facility] Comment on above: Performed By: #### C BC, 32334-7, 83280-3, AHP, 90373-3, 10243-9, 57945-1 #### [facility] ([id number]) [address], [address] [place] [address] RUPTURE OF MEMBRANE (A LL)on 06-20-2025 RUPTURE OF MEMBRANE Negative Normal Negative [facility] Comment on above: Performed By: #### C BC, 10346-7, 75955-9, P, 82337-3, 77266-1, 22280-8 #### [facility] ([id number]) [address], [address] [place] [address] US PREG TRANSABD FU PER FETU on 06-20-2025 US PREG TRANSABD FU PER FETU US PREG TRA NSABD FU PER FETU US PREG TRANSABD FU PER FETU: 06/20/2025 [...] which cannot exclude all anomalies with certainty. 8 Finalized by Aj Felix MD on 06/20/2025 1:52 PM Normal [facility] STREP B SCREENon 06-13-2025 STREP B SCREEN CULTURE RESULTS NEGATIVE FOR GROUP B STREPTOCOCCUS BY NUCLEIC ACID AMPLIFICATION Normal [facility] Comment on above: Performed By: #### S BSC #### [facility] (TT) [address] [place] [address] VIR FERRITINon 05-23-2025 Ferritin [Mass/Vol] 8 ng/mL Low 11-307 [facility] Comment on above: Performed By: #### C BC, 18697-9, 77203-9, AHP, 35716-0, 00192-1, 94119-4 #### [facility] ([id number]) [address], [address] [place] [address] HEMOGLOBIN AND HEMATOCRIT, B LOODon 05-23-2025 Hematocrit (Bld) [Volume fraction] 33.2 % Low 35-47 [facility] Comment on above: Performed By: #### C BC, 83891-5, 55428-8, AHP, 23556-3, 17680-6, 32519-1 #### [facility] ([id number]) [address], [address] [place] [address] Hemoglobin (Bld) [Mass/Vol] 11.2 g/dL Low 11.7-15. 5 [facility] Comment on above: Performed By: #### C BC, 48313-7, 29899-6, AHP, 29579-9, 15461-7, 41937-6 #### [facility] ([id number]) [address] [place] [address] IRON AND TIBCon 05-23-2025 Iron [Mass/Vol] 29 ug/dL Low 50-170 [facility] Comment on above: Performed By: #### C BC, 16847-3, 61325-0, AHP, 18293-6, 96898-9, 31733-8 #### [facility] ([id number]) [address], [address] [place] [address] IRON BINDING 580 ug/dL High 250-425 [facility] Comment on above: Performed By: #### C BC, 90475-0, 20080-7, AHP, 31044-1, 87194-1, 31976-9 #### [facility] ([id number]) [address], [facility] [address] [place] [address] IRON SATURATION 5 % SATURATION Low 15-50 [facility] Comment on above: Performed By: #### C BC, 27034-6, 94140-7, AHP, 89681-0, 10789-2, 21252-5 #### [facility] ([id number]) [address], [address] [place] [address] Transferrin [Mass/Vol] 414 mg/dL High 168-336 [facility] Comment on above: Performed By: #### C BC, 96201-6, 00749-2, AHP, 41671-7, 93260-5, 74908-4 #### [facility] ([id number]) [address], [address] [place] [address] CBC (NO DIFF)on 04-23-2025 Erythrocyte distribution wid th (RBC) [Ratio] 14.1 % Normal 11.5-15 [facility] Comment on above: Performed By: #### C BC, 73820-8, 10387-4, AHP, 30345-4, 58836-3, 71932-9 #### [facility] ([id number]) [address], [address] [place] [address] Hematocrit (Bld) [Volume fraction] 29.4 % Low 35-47 [facility] Comment on above: Performed By: #### C BC, 41211-6, 00034-2, AHP, 51404-3, 06220-5, 16564-2 #### [facility] ([id number]) [address], [address] [place] [address] Hemoglobin (Bld) [Mass/Vol] 10.2 g/dL Low 11.7-15. 5 [facility] Comment on above: Performed By: #### [place], 28669-0, 09667-2, AHP, 81241-1, 81603-4, 86481-2 #### [facility] ([id number]) [address], [address] [place] [address] MCH (RBC) [Entitic mass] 32.1 pg Normal 27-34 [facility] Comment on above: Performed By: #### Grady CANSECO, 94127-1, 35095-8, P, 80923-9, 71065-9, 50190-1 #### [facility] ([id number]) [address], [address] [place] [address] MCHC (RBC) [Mass/Vol] 34.7 g/dL Normal 32-36 [facility] Comment on above: Performed By: #### Grady CANSECO, 64377-6, 05406-6, AHP, 87419-7, 89610-3, 24106-3 #### [facility] ([id number]) [address], [address] [place] [address] MCV (RBC) [Entitic vol] 93 fL Normal 80-100 [facility] Comment on above: Performed By: #### [place], 299[address]-5, 44159-3, AHP, 97302-3, 43950-3, 09502-7 #### [facility] ([id number]) [address], [address] [place] [address] Platelet mean volume (Bld) [Entitic vol] 7.9 fL Normal 7-12 [facility] Comment on above: Performed By: #### C BC, 21761-2, 32927-2, AHP, 01185-3, 06647-0, 69952-0 #### [facility] ([id number]) [address], [address] [place] [address] Platelets (Bld) [#/Vol] 170 10*3/uL Normal 150-450 [facility] Comment on above: Performed By: #### C BC, 98553-1, 26488-5, AHP, 47623-8, 81894-0, 60335-4 #### [facility] ([id number]) [address], [address] [place] [address] RBC COUNT 3.17 X10E12/L Low 3.8-5.2 [facility] Comment on above: Performed By: #### Grady CANSECO, 78067-0, 91415-9, AHP, 91429-6, 23528-7, 28164-9 #### [facility] ([id number]) [address], [address] [place] [address] WBC (Bld) [#/Vol] 8.8 10*3/uL Normal 4-11 [facility] Comment on above: Performed By: #### Grady CANSECO, 21318-7, 75926-3, AHP, 10133-7, 66826-3, 34856-8 #### [facility] ([id number]) [address], [address] [place] [address] CHLAMYDIA/GC BY PCR CHRISTIE SW ABon 04-23-2025 CHLAMYDIA/GC BY PCR CHRISTIE SWAB CHLAMYDIA DNA(PCR) Negative Chlamydia trachomatis not detected by nucleic acid amplification. This does not exclude the possibility of infection because results are dependent on adequate specimen collection. GONORRHOEAE DNA(PCR) Negative Neisseria gonorrhoeae not detected by nucleic acid amplification. This does not exclude the possibility of infection because results are dependent on adequate specimen collection. Normal [facility] Comment on above: Performed By: #### C BC, 69844-3, 64328-1, AHP, 90387-8, 58173-6, 41421-7 #### [facility] ([id number]) [address] [place] [address] COMPREHENSIVE METABOLIC PANE Gumaro 04-23-2025 Albumin [Mass/Vol] 3.0 g/dL Low 3.2-5.3 [facility] Comment on above: Performed By: #### C BC, 44197-2, 59264-1, AHP, 35493-6, 15980-3, 38597-4 #### [facility] ([id number]) [address], [address] [place] [address] ALP [Catalytic activity/Vol] 51 U/L Normal 39-130 [facility] Comment on above: Performed By: #### C BC, 97306-7, 56058-4, AHP, 03561-3, 67259-6, 71847-6 #### [facility] ([id number]) [address], [address] [place] [address] ALT [Catalytic activity/Vol] 10 U/L Normal <=31 [facility] Comment on above: Performed By: #### C BC, 38288-5, 33190-1, AHP, 87037-7, 71451-9, 68354-6 #### [facility] ([id number]) [address], [address] [place] [address] Anion gap [Moles/Vol] 4 mmol/L Low 5-15 [facility] Comment on above: Performed By: #### C BC, 89753-2, 73018-9, AHP, 35543-7, 62196-4, 39596-0 #### [facility] ([id number]) [address], [address] [place] [address] AST [Catalytic activity/Vol] 14 U/L Normal <=41 [facility] Comment on above: Performed By: #### C BC, 05498-3, 02161-2, AHP, 93304-1, 75947-6, 05184-8 #### [facility] ([id number]) [address], [address] [place] [address] Bilirubin [Mass/Vol] 0.1 mg/dL Low 0.3-1.2 [facility] Comment on above: Performed By: #### C BC, 64221-2, 18032-2, AHP, 40406-3, 30801-9, 09516-7 #### [facility] ([id number]) [address], [address] [place] [address] Calcium [Mass/Vol] 8.2 mg/dL Low 8.5-10.5 [facility] Comment on above: Performed By: #### Grady , 65356-4, 29540-6, AHP, 69666-9, 92129-6, 42810-2 #### [facility] ([id number]) [address], [address] [place] [address] Chloride [Moles/Vol] 108 mmol/L Normal 98-109 [facility] Comment on above: Performed By: #### C BC, 45263-8, 68780-7, AHP, 93225-1, 38154-3, 98723-7 #### [facility] ([id number]) [address], [address] [place] [address] CO2 [Moles/Vol] 20 mmol/L Low 22-32 [facility] Comment on above: Performed By: #### C BC, 33931-0, 20851-8, AHP, 81650-5, 58953-3, 53553-9 #### [facility] ([id number]) [address], [address] [place] [address] Creatinine [Mass/Vol] 0.38 mg/dL Low 0.40-1.00 [facility] Comment on above: Result Comment: METH OD TRACEABLE TO IDMS STANDARD Performed By: #### C BC, 46935-2, 24997-4, AHP, 61971-4, 07817-7, 40385-8 #### [facility] ([id number]) [address], [address] [place] [address] EGFR (CKD-EPI) NON-RACE DEPENDENT >^90 Normal >=60 [facility] Comment on above: Result Comment: eGFR not reported due to non-numeric value for Creatinine. Reported eGFR is based on the CKD-EPI 2020 equation that does not use a race coefficient. Performed By: #### C BC, 99661-6, 14299-5, AHP, 29067-7, 60775-0, 92104-9 #### [facility] ([id number]) [address], [address] [place] [address] Glucose [Mass/Vol] 133 mg/dL High 65-99 [facility] Comment on above: Performed By: #### Grady CANSECO, 64724-5, 58546-4, AHP, 85554-2, 88447-8, 31385-9 #### [facility] ([id number]) [address] [place] [address] Potassium [Moles/Vol] 3.6 mmol/L Normal 3.5-5.0 [facility] Comment on above: Performed By: #### [place], 92592-4, 86484-4, AHP, 04004-1, 18086-7, 98747-4 #### [facility] ([id number]) [address], [address] [place] [address] Protein [Mass/Vol] 5.9 g/dL Low 6.0-8.0 [facility] Comment on above: Performed By: #### [place], 65891-0, 48276-3, AHP, 55318-7, 83904-4, 75975-8 #### [facility] ([id number]) [address], [address] [place] [address] Sodium [Moles/Vol] 132 mmol/L Low 134-146 [facility] Comment on above: Performed By: #### C BC, 04940-1, 74198-9, AHP, 07355-9, 33929-7, 34732-1 #### [facility] ([id number]) [address], [address] [place] [address] Urea nitrogen [Mass/Vol] 5 mg/dL Normal 5-23 [facility] Comment on above: Performed By: #### C BC, 59908-7, 37114-1, AHP, 36076-0, 45216-4, 64338-6 #### [facility] ([id number]) [address], [address] [place] [address] RUPTURE OF MEMBRANE (A LL)on 04-23-2025 RUPTURE OF MEMBRANE Negative Normal Negative [facility] Comment on above: Performed By: #### C BC, 20366-1, 00123-7, AHP, 15717-8, 62483-3, 89013-6 #### [facility] ([id number]) [address], [address] [address] SARS/FLU A+B/RSV BY NAAT/MOL ECULAR (M4RT COLLECTION TUBE)on 04-23-2025 SARS/FLU A+B/RSV BY NAAT/MOLECULAR (M4RT COLLECTION TUBE) FLU A PCR Negative FLU B PCR Negative RSV BY PCR Negative SARS COV 2 BY PCR Not Detected Normal Not Detected [facility] Comment on above: Order Comment: The X pert Xpress SARS-CoV-2/Flu/RSV Plus test is a rapid, multiplexed real-time RT-PCR test intended for the simultaneous qualitative detection and differentiation of SARS-CoV-2, influenza A, influenza B and respiratory syncytial virus (RSV) viral RNA from individuals suspected of respiratory viral infection consistent with COVID-19 by Their healthcare provider. This test has not been validated in asymptomatic patients. The Xpert Xpress SARS-CoV-2 test is intended for use by qualified and trained operators who are performing tests using either [employer] or [employer] systems and is limited to laboratories that meet the CLIA requirements to perform high and moderate complexity tests. The Xpert Xpress SARS-CoV-2/Flu/RSV Plus is only for use under the Food and Drug Administration's Emergency Use Authorization. Results are for the simultaneous detection and differentiation of SARS-CoV-2, influenza A, influenza B and RSV nucleic acids in clinical specimens. SARS-CoV-2, influenza A, influenza B and RSV RNA identified by this test are generally detectable in upper respiratory samples during the acute phase of infection. Positive results are Indicative of the presence of the identified virus, but do not rule out bacterial infection or co-infection with other pathogens not detected by this test. Clinical correlation with patient history and other diagnostic information is necessary to determine patient infection status. The agent detected may not be the definite cause of disease. Negative results do not preclude SARS-CoV-2, influenza A, influenza B and RSV infection and should not be used as the sole basis for treatment or other patient management decisions. Negative results must be combined with clinical observations, patient history and epidemiological information. An Invalid result may occur with specimen-associated inhibition unable to be resolved with specimen repeat.Fact Sheet for Healthcare Providers:https://www.fda.gov/media/735764/downloadFact Sheet for Patients:https://www.fda.gov/media/727922/download Performed By: #### C , 85320-1, 83647-9, [facility], 13407-8, 48828-0, 88543-3 #### [facility] ([id number]) [address] [place] [address] US BIOPHYSICAL PROFILE FET W O NSTon 04-23-2025 US BIOPHYSICAL PROFILE FET W O NST US BIOPHYSICAL PROFILE FET WO NST US BIOPHYSICAL PROFILE FET WO NST: 04/23/2025 3:07 PM Clinical: Possible amniotic fluid leakage. EXAM: BIOPHYSICAL PROFILE Biophysical profile performed with evaluation of the fetus with real-time sonography. Single live intrauterine present in a cephalic presentation. heart motion is 148 bpm. breathin/2 tone: 2/2 Gross movements: 2/2 Amniotic fluid volume normal: 2/2 MANNY is 15.0 cm. DVP 4.5 cm. Impression: * Biophysical profile score 8/8. 9 Finalized by Aj Felix MD on 04/23/2025 3:51 PM Normal [facility] VAGINITIS PANEL PCRon 2024 VAGINITIS PANEL PCR BACT. VAGINOSIS DNA Not Detected JOSE SPECIES DNA Not Detected Jose species not detected include: C. albicans, C. tropicalis, C. parapsilosis or C. dubliniensis. JOSE KRUSEI DNA Not Detected No Jose krusei detected. JOSE GLABRATA DNA Not Detected No Jose glabrata detected. TRICHOMONAS VAG DNA Not Detected No Trichomonas vaginalis detected. BD MAX Vaginal Panel has not been evaluated for patients under 18 years old. Results for these patients should be reviewed and assessed in accordance with clinical presentation to determine patient diagnosis. Normal [facility] Comment on above: Performed By: #### C , 54515-4, 14808-8, [facility], 26909-5, 80982-7, 30524-1 #### [facility] ([id number]) [address], [address] [place] [address] CBC (NO DIFF)on 04-10-2025 Erythrocyte distribution wid th (RBC) [Ratio] 13.8 % Normal 11.5-15 [facility] Comment on above: Performed By: #### Grady , 40207-6, 50508-0, [facility], 03593-9, 19602-8, 38116-1 #### [facility] ([id number]) [address], [address] [place] [address] Hematocrit (Bld) [Volume fraction] 30.0 % Low 35-47 [facility] Comment on above: Performed By: #### C , 24071-3, 72823-1, [facility], 93945-1, 71839-9, 94950-1 #### [facility] ([id number]) [address] [facility] [place] [address] Hemoglobin (Bld) [Mass/Vol] 10.2 g/dL Low 11.7-15. 5 [facility] Comment on above: Performed By: #### C AJITH, 98704-0, 76916-9, AHP, 68371-9, 02863-0, 04361-2 #### [facility] ([id number]) [address], [address] [place] [address] MCH (RBC) [Entitic mass] 31.8 pg Normal 27-34 [facility] Comment on above: Performed By: #### Grady CANSECO, 68866-8, 78840-1, AHP, 81518-8, 69814-4, 11769-3 #### [facility] ([id number]) [address], [address] [place] [address] MCHC (RBC) [Mass/Vol] 34.0 g/dL Normal 32-36 [facility] Comment on above: Performed By: #### Grady CANSECO, 07602-5, 65030-4, P, 85011-6, 25770-3, 66929-4 #### [facility] ([id number]) [address], [address] [place] [address] MCV (RBC) [Entitic vol] 94 fL Normal 80-100 P [facility] Comment on above: Performed By: #### Grady CANSECO, 15379-2, 17028-8, AHP, 58303-3, 31841-4, 35052-1 #### [facility] ([id number]) [address], [address] [place] [address] Platelet mean volume (Bld) [Entitic vol] 8.7 fL Normal 7-12 [facility] Comment on above: Performed By: #### Grady CANSECO, 64560-6, 18152-7, AHP, 99071-4, 26618-1, 15060-5 #### [facility] ([id number]) [address], [address] [place] [address] Platelets (Bld) [#/Vol] 153 10*3/uL Normal 150-450 [facility] Comment on above: Performed By: #### C , 16163-2, 21158-6, AHP, 35727-9, 86140-5, 18138-3 #### [facility] ([id number]) [address], [address] [place] [address] RBC COUNT 3.20 X10E12/L Low 3.8-5.2 [facility] Comment on above: Performed By: #### C , 98080-3, 41552-7, P, 08411-0, 22728-1, 06972-7 #### [facility] ([id number]) [address] [facility], [address] [place] [address] WBC (Bld) [#/Vol] 8.1 10*3/uL Normal 4-11 [facility] Comment on above: Performed By: #### C , 90073-0, 62600-2, [facility], 34888-6, 83246-8, 02623-5 #### [facility] ([id number]) [address], [address] [place] [address] SYPHILIS TOTAL(UNKNOWN SYPHI LIS STATUS)on 04-10-2025 SYPHILIS TOTAL <^0.2 Normal <=0.8 [facility] Comment on above: Order Comment: NON R EACTIVENo serologic evidence of infection to Treponema pallidum. Repeat testing may be considered in patients with suspected acute or primary syphilis in 2 to 4 weeks. Performed By: #### C , 59283-6, 61121-1, P, 86022-7, 90436-4, 92060-1 #### [facility] ([id number]) [address], [address] [place] [address] CHLAMYDIA/GC PCR, FLon 02-06 CHLAMYDIA/GC PCR, FL CHLAMYDIA PCR, FL Negative (qualifier value) Chlamydia trachomatis not detected by nucleic acid amplification. This does not exclude the possibility of infection because results are dependent on adequate specimen collection. GONORRHOEAE PCR, FL Negative (qualifier value) Neisseria gonorrhoeae not detected by nucleic acid amplification. This does not exclude the possibility of infection because results are dependent on adequate specimen collection. Normal [facility] Comment on above: Performed By: #### C , 50817-5, 00180-5, [facility], 90863-5, 94138-1, 15891-4 #### [facility] ([id number]) [address] [place] [address], [address] [place] [address] Cytologyon 02-06-2025 Cytology Normal [facility] Comment on above: Result Comment: [facility] [address] [place] [address] Gynecologic Cytology Consultation Patient Name:CORINNE ESPARZA:2000 (Age: 24)Gender:FTaken:02/06/2025Reported:02/15/2025Physician(s) :Nicolasa Pierre, [facility] ([phone])Copy To: Rec. #:[id number]: #[id number] Final Cytologic Interpretation ThinPrep Pap Test (Cervical): Satisfactory for evaluation. A transformation zone component was not noted. The lack of a transformation zone component in a patient is not unusual. NEGATIVE FOR INTRAEPITHELIAL LESION OR MALIGNANCY. [facility]02/15/2025 Interpretation performed at [facility] [employer], [address] [place] [address], License number: [id number]. 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 The Pap test is primarily effective for the diagnosis and prevention of squamous cell carcinoma. Regular screening is critical for prevention. ThinPrep liquid-based slides, which meet the Orthopedic Nurse criteria for automated screening, have been screened by the ThinPrep Imaging System (as of 07/31/07) along with an additional manual rescreening by a instruction dean and, if indicated, by a pathologist. VAGINITIS PANEL PCRon 2024 VAGINITIS PANEL PCR BACT. VAGINOSIS DNA Not detected (qualifier value) Qualitative results are reported based on detection and quantitation of targeted organism markers which include: Lactobacillus spp. (L. crispatus and L. jensenii), Gardnerella vaginalis, Atopobium vaginae, Bacterial Vaginosis Associated Bacteria-2 (BVAB-2) and Megasphaera-1 JOSE SPECIES DNA Not detected (qualifier value) Jose species not detected include: C. albicans, C. tropicalis, C. parapsilosis or C. dubliniensis JOSE KRUSEI DNA Not detected (qualifier value) No Jose krusei detected JOSE GLABRATA DNA Not detected (qualifier value) No Jose glabrata detected TRICHOMONAS VAG DNA Not detected (qualifier value) No Trichomonas vaginalis detected NOTE BD MAX Vaginal Panel has not been evaluated for patients under 18 years old. Results for these patients should be reviewed and assessed in accordance with clinical presentation to determine patient diagnosis. Normal [facility] Comment on above: Performed By: #### V PPCR #### [facility] ([id number]) [address] [place] [address], [address] [place] [address] ACUTE HEPATITIS PANELon 01-13 ANTI HCV W/PCR REFLX Non-Reactive Normal NRCT Pr [facility] Comment on above: Result Comment: NEW TEST METHOD NOTE If recent infection suspected, recommend repeat testing (>2 months). Akyjxq-nc-umjvzv ratio is <1.00. Performed By: #### C BC, 34204-4, 53699-2, P, 30266-6, 02151-8, 33914-8 #### [facility] ([id number]) [address] [facility], [address] [place] [address] HEPATITIS A IGM Non-Reactive Normal NRCT [facility] Comment on above: Result Comment: NEW TEST METHOD Performed By: #### C BC, 92910-7, 50512-5, AHP, 02969-3, 40023-1, 82602-4 #### [facility] ([id number]) [address], [address] [place] [address] HEPATITIS B CORE IGM Non-Reactive Normal NRCT Pr [facility] Comment on above: Result Comment: NEW TEST METHOD Performed By: #### C BC, 78317-9, 31446-3, AHP, 46697-2, 17351-5, 83010-5 #### [facility] ([id number]) [address], [address] [place] [address] HEPATITIS B SURF AG Non-Reactive Normal NRCT [facility] Comment on above: Result Comment: NEW TEST METHOD Performed By: #### [place], [address]-8, 32915-1, AHP, 47960-5, 18750-9, 83714-8 #### [facility] ([id number]) [address], [address] [place] [address] COMPLETE BLOOD COUNTon 01-31 Erythrocyte distribution wid th (RBC) [Ratio] 13.9 % Normal 11.5-15.0 [facility] Comment on above: Performed By: #### C BC, 78933-1, 83330-5, AHP, 36792-3, 62066-2, 07374-7 #### [facility] ([id number]) [address], [address] [place] [address] Hematocrit (Bld) [Volume fraction] 34.0 % Low 35-47 [facility] Comment on above: Performed By: #### C BC, 60668-8, 09590-6, AHP, 48281-8, 22505-7, 67165-4 #### [facility] ([id number]) [address], [address] [place] [address] Hemoglobin (Bld) [Mass/Vol] 11.4 g/dL Low 11.7-15. 5 [facility] Comment on above: Performed By: #### [place], 55584-6, 08250-5, AHP, 10089-8, 25451-6, 09215-4 #### [facility] ([id number]) [address], [address] [place] [address] MCH (RBC) [Entitic mass] 31.4 pg Normal 27-34 [facility] Comment on above: Performed By: #### [place], 68065-0, 35539-4, AHP, 92716-8, 72694-8, 80279-5 #### [facility] ([id number]) [address], [address] [place] [address] MCHC (RBC) [Mass/Vol] 33.6 g/dL Normal 32-36 [facility] Comment on above: Performed By: #### [place], 79655-7, 29475-6, P, 31312-1, 33356-5, 43644-0 #### [facility] ([id number]) [address], [address] [place] [address] MCV (RBC) [Entitic vol] 94 fL Normal 80-100 P [facility] Comment on above: Performed By: #### [place], 40618-2, 11281-8, AHP, 17912-2, 55156-7, 97012-1 #### [facility] ([id number]) [address], [address] [place] [address] Platelet mean volume (Bld) [Entitic vol] 8.7 fL Normal 7-12 [facility] Comment on above: Performed By: #### [place], 07753-0, 28949-2, AHP, 09739-2, 78715-1, 45417-6 #### [facility] ([id number]) [address], [address] [place] [address] Platelets (Bld) [#/Vol] 158 10*3/uL Normal 150-450 [facility] Comment on above: Performed By: #### C , 61018-5, 11392-8, AHP, 23195-2, 97463-7, 49829-8 #### [facility] ([id number]) [address], [address] [place] [address] RBC COUNT 3.64 X10E12/L Low 3.80-5.20 [facility] Comment on above: Performed By: #### C , 90755-3, 89223-9, [facility], 65168-5, 13712-5, 47843-3 #### [facility] ([id number]) [address], [facility] [address] [place] [address] WBC (Bld) [#/Vol] 5.9 10*3/uL Normal 4.0-11.0 [facility] Comment on above: Performed By: #### C , 69639-6, 18379-1, [facility], 92582-8, 48601-6, 04478-8 #### [facility] ([id number]) [address], [address] [place] [address] DRUG SCREEN, URINEon 025 AMPHETAMINE/METHAMP Negative Normal NEG [facility] Comment on above: Result Comment: AMPH /METH screening cut off = 1000 ng/mL Performed By: #### D MARRERO #### [facility] ([id number]) [address], [address] [place] [address] BARBITURATES Negative Normal NEG [facility] Comment on above: Result Comment: Denita iturates screening cut off value = 200 ng/mL Performed By: #### D MARRERO #### [facility] ([id number]) [address], [address] [place] [address] BENZODIAZEPINES Negative Normal NEG [facility] Comment on above: Result Comment: Favian odiazepines screening cut off value = 200 ng/mL Performed By: #### D MARRERO #### [facility] ([id number]) [address], [address] [place] [address] CANNABINOIDS Negative Normal NEG [facility] Comment on above: Result Comment: Lito abinoids/THC screening cut off value = 50 ng/mL Performed By: #### D MARRERO #### [facility] ([id number]) [address], [address] [place] [address] COCAINE METABOLITE Negative Normal NEG [facility] Comment on above: Result Comment: Coca ine screening cut off value = 300 ng/mL Performed By: #### D MARRERO #### [facility] ([id number]) [address], [address] [place] [address] ECSTASY Negative Normal [facility] Comment on above: Result Comment: Ecst asy screening cut off value = 500 ng/mL This report is intended for use in clinical monitoring or management of patients. Performed By: #### D MARRERO #### [facility] ([id number]) [address], [address] [place] [address] METHADONE Negative Normal [facility] Comment on above: Result Comment: Meth adone screening cut off value = 300 ng/mL. Performed By: #### D MARRERO #### [facility] ([id number]) [address], [address] [place] [address] OPIATES Negative Normal [facility] Comment on above: Result Comment: Opia isis screening cut off value = 300 ng/mL NOTE: This test is used for the detection of codeine, hydrocodone (>1000 ng/mL), morphine and hydromorphone (>900 ng/mL) in urine. Performed By: #### D MARRERO #### [facility] ([id number]) [address], [address] [place] [address] OXYCODONE Negative Normal NEG [facility] Comment on above: Result Comment: Oxyc odone screening cut off value = 300 ng/mL NOTE: This test is used for the detection of oxycodone and oxymorphone in urine. Performed By: #### D MARRERO #### [facility] ([id number]) [address] [place] [address], [address] [place] [address] PHENCYCLIDINE Negative Normal NEG [facility] Comment on above: Result Comment: Phen cyclidine screening cut off value = 25 ng/mL Performed By: #### D MARRERO #### [facility] ([id number]) [address] [place] [address], [address] [place] [address] HCG.beta subunit IA 3rd IS Q non 01-31-2025 [place] [address] m[IU]/mL Normal P [facility] Comment on above: Result Comment: NEW REFERENCE RANGE WEEKS (SINCE LMP) MIU/mL 3 WEEKS 5 - 50 4 WEEKS 5 - 426 5 WEEKS 18 - 7,340 6 WEEKS 1,080 - 56,500 7-8 WEEKS 7,650 - 229,000 9-12 WEEKS 25,700 - 288,000 13-16 WEEKS 13,300 - 254,000 17-24 WEEKS 4,060 - 165,400 25-40 WEEKS 3,640 - 117,000 MALES AND NON- FEMALES - <5 MIU/mL This test has been FDA approved for use in only. Elevated levels are not necessarily diagnostic for trophoblastic or nontrophoblastic neoplasms. Performed By: #### C , 55342-0, 71032-7, [facility], 20047-7, 61288-8, 30851-7 #### [facility] ([id number]) [address] [place] [address], [address] [place] [address] HIV 1+2 Ab+HIV1 p24 Ag IA Ql on 01-31-2025 HIV 1 and 2 Ab/Ag Screen Non-Reactive Normal NRCT [facility] Comment on above: Result Comment: NEW TEST METHOD NOTE This information has been disclosed to you from confidential records protected from disclosure by state law. You shall make no further disclosure of this information without the specific, written and informed release of the individual to whom it pertains, or as otherwise permitted by state law. A general authorization for the release of medical or other information is not sufficient for the purpose of the release of HIV test results or diagnoses. Performed By: #### C , 66178-3, 90402-7, [facility], 55346-8, 54737-5, 58410-4 #### [facility] ([id number]) [address] [place] [address], [address] [place] [address] Rubella virus Ab Ql (S)on RUBELLA IMMUNE IgG 3.1 AI Normal [facility] Comment on above: Result Comment: Interpretation-------- <0.8 NEGATIVE-considered Not Immune 0.8-0.9 EQUIVOCAL-consider retesting with new specimen >0.9 POSITIVE-considered Immune Performed By: #### C , 31801-8, 23802-4, [facility], 91906-7, 30849-7, 90350-8 #### [facility] ([id number]) [address] [place] [address], [address] [address] T. pallidum IgG+IgM IA Ql (S )on 01-31-2025 Syphilis Total <0.2 Normal 0.0-0.8 [facility] Comment on above: Result Comment: NON REACTIVE No serologic evidence of infection to Treponema pallidum (syphilis). Repeat testing may be considered in patients with suspected acute or primary syphilis in 2 to 4 weeks. Performed By: #### C , 64311-9, 55347-9, [facility], 60976-5, 42678-8, 69564-9 #### [facility] ([id number]) [address] [place] [address], [facility] [address] [place] [address] URINALYSISon 01-31-2025 Amorphous sediment LM Ql (Urine sed) PRESENT Abnormal NONE [facility] Comment on above: Performed By: #### U A #### [facility] ([id number]) [address], [address] [place] [address] Bilirubin Ql (U) Negative Normal NEG [facility] Comment on above: Performed By: #### U A #### [facility] ([id number]) [address] [facility], [address] [place] [address] BLOOD/HGB Negative Normal NEG [facility] Comment on above: Performed By: #### U A #### [facility] ([id number]) [facility] [facility], [address] [place] [address] Color (U) YELLOW Normal YELLOW [facility] Comment on above: Performed By: #### U A #### [facility] ([id number]) [address] [place] [address], [address] [place] [address] Glucose Ql (U) Negative Normal NEG [facility] Comment on above: Performed By: #### U A #### [facility] ([id number]) [address] [place] [address], [address] [place] [address] Ketones Ql (U) Negative Normal NEG [facility] Comment on above: Performed By: #### U A #### [facility] ([id number]) [address] [facility], [address] [place] [address] Leukocyte esterase Test stri p Ql (U) Negative Normal NEG [facility] Comment on above: Performed By: #### U A #### [facility] ([id number]) [address] [place] [address], [address] [place] [address] Nitrite Ql (U) Negative Normal NEG [facility] Comment on above: Performed By: #### U A #### [facility] ([id number]) [address] [facility], [address] [place] [address] pH (U) 8.0 [pH] Normal 5.0-8.5 [facility] Comment on above: Performed By: #### U A #### [facility] ([id number]) [address], [address] [place] [address] Protein Ql (U) Negative Normal NEG [facility] Comment on above: Performed By: #### U A #### [facility] ([id number]) [address], [address] [place] [address] R.B.CELLS <1 Normal 0-5 [facility] Comment on above: Performed By: #### U A #### [facility] ([id number]) [address], [facility] [address] [place] [address] Specific gravity (U) [Rel density] 1.014 Normal 1.003-1.03 5 [facility] Comment on above: Performed By: #### U A #### [facility] ([id number]) [address] [address] [place] [address] SQUAMOUS EPITHELIUM 1 /hpf Normal 0-5 [facility] Comment on above: Performed By: #### U A #### [facility] ([id number]) [address] [address] [place] [address] TURBIDITY CLOUDY Abnormal CLEAR [facility] Comment on above: Performed By: #### U A #### [facility] ([id number]) [address] [address] [place] [address] Urinalysis dipstick W Reflex Microscopic panel (U) URINE RECEIVED WITHOUT PRESERVATIVE-DELAYS IN TRANSPORT MAY AFFECT RESULTS.INTERPRET WITH CAUTION AND CLINICAL CORRELATION IS RECOMMENDED. Normal [facility] Comment on above: Performed By: #### U A #### [facility] ([id number]) [address], [address] [place] [address] Urobilinogen (U) [Mass/Vol] mg/dL Normal <1.1 [facility] Comment on above: Performed By: #### U A #### [facility] ([id number]) [address], [address] [place] [address] W.B.CELLS 1 /hpf Normal 0-5 [facility] Comment on above: Performed By: #### U A #### [facility] ([id number]) [address], [address] [place] [address] URINE CULTUREon 01-31-2025 Bacteria identified Cx Nom (U) CULTURE R ESULTS NO GROWTH AT <1000 CFU/mL Normal [facility] Comment on above: Performed By: #### C BC, 88419-7, 87418-2, AHP, 87825-5, 76934-2, 89338-6 #### [facility] ([id number]) [address], [address] [place] [address] US PREG TRANSABD FU PER FETU on 01-31-2025 US PREG TRANSABD FU PER FETU US PREG TRA NSABD FU PER FETU US PREG TRANSABD FU PER FETU: 01/31/2025 7:23 AM Clinical: Check dates and viability. Real-time sonography fetus performed There is a single intrauterine in a variable presentation. Cardiac activity: 144 bpm. Subpleural region is grossly unremarkable. Growth parameters are as follows. BPD- 3.6 cm, 17 weeks 0 day. Head circumference 13.1 cm, 16 week 5 day. Abdomen circumference 11.5 cm, 17 week 2 day. Femur length 2.1 cm, 16 week 1 day. Average gestational age is 16 weeks 6 days.. Estimated weight is 72.5%. Amniotic fluid volume: Subjectively normal. The placenta is posterior, away from cervical os. anatomic survey not performed. Maternal Adnexa: No masses seen. Impression: * Single intrauterine variable presentation with cardiac activity. * Average gestational age 16 weeks 6 days. Ultrasound PHIL 07/12/2025. This is a standard (Level I) ultrasound, which cannot exclude all anomalies with certainty. 8 Finalized by jA Felix MD on 01/31/2025 8:27 AM Normal [facility] VZV IgG IA Ql (S)on 02-01-20 VARICELLA IgG 0.8 AI Normal <0.9 [facility] Comment on above: Result Comment: Interpretation-------- <0.9 Negative 0.9 - 1.0 Equivocal >1.0 Positive Performed By: #### C , 08616-5, 20341-9, [facility], 83987-4, 64526-5, 76756-1 #### [facility] ([id number]) [address] [facility], [address] [place] [address] HCG ( test) Ql (U)o n 06-26-2024 Interpretation and review of laboratory results Abnormal [facility] Preg Test, Ur Positive [facility] US OB < 14 WEEKS EARLYon US OB < 14 WEEKS EARLY TITLE OF EXAM: US - US OB LESS THAN 14 WKS SINGLE REASON FOR EXAM: Dating TECHNIQUE: Grayscale, color, and spectral Doppler sonographic evaluation of the pelvis. COMPARISON: None. PATIENT : 2000 LMP: 04/26/2024 PHIL by LMP: 01/31/2025 GA by LMP: 7 weeks, 4 days FINDINGS: AUA: 7 weeks, 0 days PHIL by US: 02/04/2025 Uterus: 10.3 x 7.8 x 6.8 cm. There is a gestational sac and 0.2 cm yolk sac within the uterine fundus. Live embryo within the gestational sac without evident abnormality. [place] rump length is 1.0 cm (7 weeks, 0 days). heart rate is 139 bpm. No appreciable subchorionic hemorrhage or other abnormality. Mean sac diameter 2.8 cm (7 weeks, 6 days). Cervix: 3.5 cm length Right ovary: 3.4 x 2.6 x 2.9 cm. Present color vascular flow. Anechoic, thin-walled, simple, benign-appearing cyst measures 2.4 x 1.9 x 2.2 cm. Left ovary: 2.3 x 1.7 x by 1.9 cm. Present color vascular flow. IMPRESSION: Single live intrauterine gestation sonographically measuring 7 weeks, 0 days by crown-rump length. No appreciable sonographic abnormality. DICTATED ON: 06/18/2024 4:35 PM This report has been electronically signed and approved by the interpreting radiologist. Electronically Signed Jimmy Damon M.D. 2024-06-18 16:38:57 Normal Not Available US OB TRANSVAGINALon 024 US OB TRANSVAGINAL FINDINGS: Comparison made with prior examination of March 27, 2024. Persistent intrauterine gestational sac, less conspicuous decidual reaction and still no pole or yolk sac. Reduced size of the additional intrauterine cystic structure lower uterine segment. Current gestational sac measures 2.5 cm in maximal length suggesting a 7 week and 3 day gestational age. IMPRESSION: No evidence of a viable intrauterine , endometrial fluid collections, no pole or yolk sac. TRANSCRIBED BY: ELECTRONICALLY SIGNED BY: Braydon Graff MD Normal Not Available US OB < 14 WEEKS EARLYon US OB < 14 WEEKS EARLY One oval shaped intrauterine gestational sac with a relatively normal-appearing double decidual reaction, 2.8 x 2.4 x 2.4 cm would suggest a 7-week and 5-day gestational age. There is however no pole or yolk sac identified. Additionally within the inferior aspect closely neighboring the gestational sac, lower uterine segment near the cervical uterine junction is a irregular shaped 1.5 x 2.5 x 4.5 cm fluid collection with increase in vascularity within the surrounding decidual reaction also lacking a pole or yolk sac. Closed cervix, greater than 3.5 cm length. Small amount of pelvic fluid. No adnexal mass. Normal right ovary. Left ovary not seen. IMPRESSION: Impression: Two intrauterine cystic structures, One oval and one irregular shaped, neither demonstrating a pole or yolk sac. Correlate with beta hCG findings, molar gestation is a consideration with this appearance. Currently No visualized pole. ELECTRONICALLY SIGNED BY: Braydon Graff MD Normal Not Available Q - CBC DIFF SMEAR REVIEWon 02-26-2022 Erythrocyte distribution wid th (RBC) [Ratio] 12.3 % Normal 11.0-15.0 [facility] [employer] Comment on above: Order Comment: [facility] Testing performed at: [facility], [employer] [facility], [address] [facility], [address] [place] [address], [address] [place] [address], Wire Spooler: Ponce Lea MD [facility] Collection Date/Time: [facility] Results Received Date/Time: [facility] Reported Date/Time: Performed By: #### 1 0231A, 899, 77881, %51082, 457, 3020X, 968T, %SBNOCULI, [id number] #### [facility] Default [address] [place] [address] Hematocrit (Bld) [Volume fraction] 39.5 % Normal 35.0-45.0 [facility] [employer] Comment on above: Order Comment: [facility] performed at: [email or web address], [employer] [facility], [address] [facility], [address] [place] [address], [address] [place] [address], Wire Spooler: Ponce Lea MD [facility] Date/Time: [facility] Results Received Date/Time: [facility] Reported Date/Time: Performed By: #### 1 0231A, 899, 33211, %20460, 457, 3020X, 968T, %SBNOCULI, [id number] #### [facility] Default [address] [place] [address] Hemoglobin (Bld) [Mass/Vol] 13.4 g/dL Normal 11.7-15. 5 [facility] [employer] Comment on above: Order Comment: [facility] performed at: [email or web address], [employer] [facility], [address] [facility], [address] [place] [address], [address] [place] [address], Wire Spooler: Ponce Lea MD [facility] Date/Time: [facility] Results Received Date/Time: [facility] Reported Date/Time: Performed By: #### 1 0231A, 899, 79315, %58432, 457, 3020X, 968T, %SBNOCULI, [id number] #### [facility] Default [address] [place] [address] MCH (RBC) [Entitic mass] 32.3 pg Normal 27.0-33.0 [facility] Specialist Comment on above: Order Comment: [facility] performed at: [email or web address], [employer] [facility], [address] [place] [address], [address] [place] [address], [address] [place] [address], Wire Spooler: Ponce Lea MD [facility] Collection Date/Time: [facility] Results Received Date/Time: [facility] Reported Date/Time: Performed By: #### 1 0231A, 899, 77322, %06802, 457, 3020X, 968T, %SBNOCULI, [id number] #### [facility] Default [address] [place] [address] MCHC (RBC) [Mass/Vol] 33.9 g/dL Normal 32.0-36.0 [facility] Specialist Comment on above: Order Comment: [facility] performed at: [email or web address], [employer] [facility], [address] [place] [address], [address] [place] [address], [address] [place] [address], Wire Spooler: Ponce Lea MD [facility] Collection Date/Time: [facility] Results Received Date/Time: [facility] Reported Date/Time: Performed By: #### 1 0231A, 899, 50046, %23832, 457, 3020X, 968T, %SBNOCULI, [id number] #### [facility] Default [address] [place] [address] MCV (RBC) [Entitic vol] 95.2 fL Normal 80.0-100.0 [facility] Comment on above: Order Comment: [facility] performed at: [email or web address], [employer] [facility], [address] [place] [address], [address] [place] [address], [address] [place] [address], Wire Spooler: Ponce Lea MD [facility] Collection Date/Time: [facility] Results Received Date/Time: [facility] Reported Date/Time: Performed By: #### 1 0231A, 899, 41308, %04907, 457, 3020X, 968T, %SBNOCULI, [id number] #### [facility] Default [address] [place] [address] Platelet mean volume (Bld) [Entitic vol] 10.3 fL Normal 7.5-12.5 [facility] Comment on above: Order Comment: [facility] performed at: [facility] [employer], [employer] [facility], [address] [facility], [address] [place] [address], [address], Wire Spooler: Ponce Lea MD [facility] Collection Date/Time: [facility] Results Received Date/Time: [facility] Reported Date/Time: Performed By: #### 1 0231A, 899, 12666, %80207, 457, 3020X, 968T, %SBNOCULI, [id number] #### [facility] Default [address] [place] [address] Platelets (Bld) [#/Vol] 173 10*3/uL Normal 140-400 [facility] Comment on above: Order Comment: [facility] performed at: [email or web address], [employer] [facility], [address] [facility], [address] [place] [address], [address] [place] [address], Wire Spooler: Ponce Lea MD [facility] Collection Date/Time: [facility] Results Received Date/Time: [facility] Reported Date/Time: Performed By: #### 1 0231A, 899, 76985, %07782, 457, 3020X, 968T, %SBNOCULI, [id number] #### [facility] Default [address] [place] [address] RBC (Bld) [#/Vol] 4.15 10*6/uL Normal 3.80-5.10 [facility] Comment on above: Order Comment: [facility] performed at: [email or web address], [employer] [facility], [address] [place] , [address] [place] [address], [phone], Wire Spooler: Ponce Lea MD [facility] Collection Date/Time: [facility] Results Received Date/Time: [facility] Reported Date/Time: Performed By: #### 1 0231A, 899, 56242, %22845, 457, 3020X, 968T, %SBNOCULI, [id number] #### [facility] Default [address] [place] [address] WBC (Bld) [#/Vol] 7.2 10*3/uL Normal 3.8-10.8 Judy yanez [place] [employer] Comment on above: Order Comment: [facility] performed at: [email or web address], [employer] [facility], [address] , [address] [place] [address], [address], Wire Spooler: Ponce Lea MD [facility] Collection Date/Time: [id number] [facility] Results Received Date/Time: [facility] Reported Date/Time: Performed By: #### 1 0231A, 899, 49704, %34614, 457, 3020X, 968T, %SBNOCULI, [id number] #### [facility] Default [address] [place] [address] Q - COMPREHENSIVE METABOLIC PANEL W/EGFRon 02-26-2022 Albumin [Mass/Vol] 4.4 g/dL Normal 3.6-5.1 Judy yanez [place] [employer] Comment on above: Order Comment: [facility] performed at: [email or web address], [employer] [facility], [address], [address] [place] [address], [address], Wire Spooler: Ponce Lea MD [facility] Collection Date/Time: [id number] [facility] Results Received Date/Time: [facility] Reported Date/Time: Performed By: #### 1 0231A, 899, 16405, %84339, 457, 3020X, 968T, %SBNOCULI, [id number] #### [facility] Default [address] [place] [address] Albumin/Globulin [Mass ratio] 2.1 {ratio} Normal 1.0-2 .5 [facility] [place] [employer] Comment on above: Order Comment: [facility] performed at: [email or web address], [employer] [facility], [address] [facility], [address] [place] [address], [address] [place] [address], Wire Spooler: Ponce Lea MD [facility] Collection Date/Time: [facility] Results Received Date/Time: [facility] Reported Date/Time: Performed By: #### 1 0231A, 899, 74325, %37220, 457, 3020X, 968T, %SBNOCULI, [id number] #### [facility] Default [address] [place] [address] ALP [Catalytic activity/Vol] 53 U/L Normal 31-125 [facility] [employer] Comment on above: Order Comment: [facility] performed at: [email or web address], [employer] [facility], [address] [place] [address], [address] [place] [address], [address] [place] [address], Wire Spooler: Ponce Lea MD [facility] Collection Date/Time: [facility] Results Received Date/Time: [facility] Reported Date/Time: Performed By: #### 1 0231A, 899, 38722, %80812, 457, 3020X, 968T, %SBNOCULI, [id number] #### [facility] Default [address] [place] [address] ALT [Catalytic activity/Vol] 15 U/L Normal 6-29 [facility] [employer] Comment on above: Order Comment: [facility] performed at: [email or web address], [employer] [facility], [address] [place] [address], [address] [place] [address], [address] [place] [address], Wire Spooler: Ponce Lea MD [facility] Collection Date/Time: [facility] Results Received Date/Time: [facility] Reported Date/Time: Performed By: #### 1 0231A, 899, 00065, %61096, 457, 3020X, 968T, %SBNOCULI, [id number] #### [facility] Default [address] [place] [address] AST [Catalytic activity/Vol] 12 U/L Normal 10-30 [facility] [employer] Comment on above: Order Comment: [facility] performed at: [email or web address], [employer] [facility], [address] [facility], [address] [place] [address], [address] [place] [address], Wire Spooler: Ponce Lea MD [facility] Collection Date/Time: [facility] Results Received Date/Time: [facility] Reported Date/Time: Performed By: #### 1 0231A, 899, 36559, %20252, 457, 3020X, 968T, %SBNOCULI, [id number] #### [facility] Default [address] [place] [address] Bilirubin [Mass/Vol] 0.6 mg/dL Normal 0.2-1.2 [facility] Comment on above: Order Comment: [facility] performed at: [email or web address], [employer] [facility], [address] , [address] [place] [address], [address] [place] [address], Wire Spooler: Ponce Lea MD [facility] Collection Date/Time: [facility] Results Received Date/Time: [facility] Reported Date/Time: Performed By: #### 1 0231A, 899, 97111, %33436, 457, 3020X, 968T, %SBNOCULI, [id number] #### [facility] Default [address] [place] [address] BUN/CREA 17 NOT APPLICABLE Normal 6-22 [facility] Specialist Comment on above: Order Comment: [facility] Testing performed at: [email or web address], [employer] [facility], [address] , [address] [place] [address], [address] [place] [address], Wire Spooler: Ponce Lea MD [facility] Collection Date/Time: [id number] [facility] Results Received Date/Time: [facility] Reported Date/Time: Performed By: #### 1 0231A, 899, 02453, %95764, 457, 3020X, 968T, %SBNOCULI, [id number] #### [facility] Default [address] [place] [address] Calcium [Mass/Vol] 9.4 mg/dL Normal 8.6-10.2 [facility] Specialist Comment on above: Order Comment: [facility] Testing performed at: [employer], [employer] [facility], [address] [facility], [address] [place] [address], [address] [place] [address], Wire Spooler: Ponce Lea MD [facility] Collection Date/Time: [facility] Results Received Date/Time: [facility] Reported Date/Time: Performed By: #### 1 0231A, 899, 85803, %80813, 457, 3020X, 968T, %SBNOCULI, 97331P #### [facility] Default [address] [place] [address] Chloride [Moles/Vol] 105 mmol/L Normal 98-110 [facility] Specialist Comment on above: Order Comment: [facility] Testing performed at: [email or web address], [employer] [facility], [address] [facility], [address] [place] [address], [address] [place] [address], Wire Spooler: Ponce Lea MD [facility] Collection Date/Time: [facility] Results Received Date/Time: [facility] Reported Date/Time: Performed By: #### 1 0231A, 899, 86993, %72550, 457, 3020X, 968T, %SBNOCULI, [id number] #### [facility] Default [address] [place] [address] CO2 [Moles/Vol] 28 mmol/L Normal 20-32 [facility] Specialist Comment on above: Order Comment: [facility] Testing performed at: [email or web address], [employer] [facility], [address] [place] [address], [address] [place] [address], [address] [place] [address], Wire Spooler: Ponce Lea MD [facility] Collection Date/Time: [facility] Results Received Date/Time: [facility] Reported Date/Time: Performed By: #### 1 0231A, 899, 03459, %73776, 457, 3020X, 968T, %SBNOCULI, [id number] #### [facility] Default [address] [place] [address] Creatinine [Mass/Vol] 0.77 mg/dL Normal 0.50-1.10 [facility] Comment on above: Order Comment: [facility] Testing performed at: [email or web address], [employer] [facility], [address] [facility], [address] [place] [address], [address] [place] [address], Wire Spooler: Ponce Lea MD [facility] Collection Date/Time: [facility] Results Received Date/Time: [facility] Reported Date/Time: Performed By: #### 1 0231A, 899, 22012, %56852, 457, 3020X, 968T, %SBNOCULI, [id number] #### [facility] Default [address] [place] [address] eGFRAA ([facility]) 129 mL/min/1.73m2 Normal > OR = 60 [facility] Comment on above: Order Comment: [facility] performed at: [email or web address], [employer] [facility], [address] [facility], [address] [place] [address], [address] [place] [address], Wire Spooler: Ponce Lea MD [facility] Collection Date/Time: [facility] Results Received Date/Time: [facility] Reported Date/Time: Performed By: #### 1 0231A, 899, 56498, %96397, 457, 3020X, 968T, %SBNOCULI, [id number] #### [facility] Default [address] [place] [address] eGFRNAA ([facility]) 111 mL/min/1.73m2 Normal > OR = 60 No rthern [place] [employer] Comment on above: Order Comment: [facility] Testing performed at: [email or web address], [employer] [facility], [address] [facility], [address] [place] [address], [address] [place] [address], Wire Spooler: Ponce Lea MD [facility] Collection Date/Time: [facility] Results Received Date/Time: [id number] [facility] Reported Date/Time: Performed By: #### 1 0231A, 899, 04839, %79082, 457, 3020X, 968T, %SBNOCULI, [id number] #### [facility] Default [address] [place] [address] Globulin (S) [Mass/Vol] 2.1 g/dL Normal 1.9-3.7 N [place] [employer] Comment on above: Order Comment: [facility] Testing performed at: [email or web address], [employer] [facility], [address] [place] [address], [address] [place] [address], [address] [place] [address], Wire Spooler: Ponce Lea MD [facility] Collection Date/Time: [facility] Results Received Date/Time: [facility] Reported Date/Time: Performed By: #### 1 0231A, 899, 49766, %71156, 457, 3020X, 968T, %SBNOCULI, [id number] #### [facility] Default [address] [place] [address] Glucose [Mass/Vol] 77 mg/dL Normal 65-99 [facility] [employer] Comment on above: Order Comment: [facility] Testing performed at: [email or web address], [employer] [facility], [address] [place] [address], [address] [place] [address], [address] [place] [address], Wire Spooler: Ponce Lea MD [facility] Collection Date/Time: [facility] Results Received Date/Time: [facility] Reported Date/Time: Result Comment: Fasting reference interval Performed By: #### 1 0231A, 899, 29800, %06399, 457, 3020X, 968T, %SBNOCULI, [id number] #### [facility] Default [address] [place] [address] Potassium [Moles/Vol] 3.9 mmol/L Normal 3.5-5.3 [place] [employer] Comment on above: Order Comment: [facility] Testing performed at: [email or web address], [employer] [facility], [address] [place] [address], [address] [place] [address], [address] [place] [address], Wire Spooler: Ponce Lea MD [facility] Collection Date/Time: [facility] Results Received Date/Time: [facility] Reported Date/Time: Performed By: #### 1 0231A, 899, 69165, %57169, 457, 3020X, 968T, %SBNOCULI, [id number] #### [facility] Default [address] [place] [address] Protein [Mass/Vol] 6.5 g/dL Normal 6.1-8.1 Judy yanez [place] [employer] Comment on above: Order Comment: [facility] Testing performed at: [email or web address] [facility], [address] [place] [address], [address] [place] [address], [address] [place] [address], Wire Spooler: Ponce Lea MD [facility] Date/Time: [facility] Results Received Date/Time: [facility] Reported Date/Time: Performed By: #### 1 0231A, 899, 00212, %80202, 457, 3020X, 968T, %SBNOCULI, [id number] #### [facility] Default [address] [place] [address] Sodium [Moles/Vol] 140 mmol/L Normal 135-146 Judy rn [place] [employer] Comment on above: Order Comment: [facility] Testing performed at: [employer] [facility], [address] [place] [address], [address] [place] [address], [address] [place] [address], Wire Spooler: Ponce Lea MD [facility] Date/Time: [facility] Results Received Date/Time: [facility] Reported Date/Time: Performed By: #### 1 0231A, 899, 21155, %09440, 457, 3020X, 968T, %SBNOCULI, [id number] #### [facility] Default [address] [place] [address] Urea nitrogen [Mass/Vol] 13 mg/dL Normal 7-25 [facility] [employer] Comment on above: Order Comment: [facility] performed at: [employer] [facility], [address] [facility], [address] [place] [address], [address] [place] [address], Wire Spooler: Ponce Lea MD [facility] Collection Date/Time: [facility] Results Received Date/Time: [facility] Reported Date/Time: Performed By: #### 1 0231A, 899, 47925, %97677, 457, 3020X, 968T, %SBNOCULI, [id number] #### [facility] Default [address] [place] [address] Q - DIFF MANUALon 02-26-2022 ABSOLUTE LYMPHOCYTES 4608 cells/uL High 850-3900 [facility] Comment on above: Order Comment: [facility] performed at: [email or web address], [employer] [facility], [address] [facility], [address] [place] [address], [address] [place] [address], Wire Spooler: Ponce Lea MD [facility] Date/Time: [facility] Results Received Date/Time: [facility] Reported Date/Time: Performed By: #### 1 0231A, 899, 76072, %83629, 457, 3020X, 968T, %SBNOCULI, [id number] #### [facility] Default [address] [place] [address] BASO% 1.0 % Normal [facility] Specialist Comment on above: Order Comment: [facility] performed at: [employer] [facility], [address] [facility], [address] [place] [address], [address] [place] [address], Wire Spooler: Ponce Lea MD [facility] Date/Time: [id number] [facility] Results Received Date/Time: [facility] Reported Date/Time: Performed By: #### 1 0231A, 899, 33307, %17790, 457, 3020X, 968T, %SBNOCULI, 96102P #### [facility] Default [address] [place] [address] BASOABS 72 cells/uL Normal 0-200 [facility] Specialist Comment on above: Order Comment: [facility] performed at: [employer], [employer] [facility], [address] [facility], [address] [place] [address], [address] [place] [address], Wire Spooler: Ponce Lea MD [facility] Date/Time: [facility] Results Received Date/Time: [facility] Reported Date/Time: Performed By: #### 1 0231A, 899, 25271, %98519, 457, 3020X, 968T, %SBNOCULI, 60022D #### [facility] Default [address] [place] [address] EOS% 5.0 % Normal [facility] Specialist Comment on above: Order Comment: [facility] performed at: [email or web address], [employer] [facility], [address] , [address] [place] [address], [address] [place] [address], Wire Spooler: Ponce Lea MD [facility] Collection Date/Time: [facility] Results Received Date/Time: [facility] Reported Date/Time: Performed By: #### 1 0231A, 899, 81108, %43767, 457, 3020X, 968T, %SBNOCULI, [id number] #### [facility] Default [address] [place] [address] EOSABS 360 cells/uL Normal 15-500 [facility] Specialist Comment on above: Order Comment: [facility] performed at: [email or web address], [employer] [facility], [address] , [address] [place] [address], [address] [place] [address], Wire Spooler: Ponce Lea MD [facility] Date/Time: [id number] [facility] Results Received Date/Time: [facility] Reported Date/Time: Performed By: #### 1 0231A, 899, 25971, %68335, 457, 3020X, 968T, %SBNOCULI, [id number] #### [facility] Default [address] [place] [address] LYMPH% 64.0 % Normal [facility] Specialist Comment on above: Order Comment: [facility] performed at: [email or web address], [employer] [facility], [address] [facility], [address] [place] [address], [address] [place] [address], Wire Spooler: Ponce Lea MD [facility] Date/Time: [id number] [facility] Results Received Date/Time: [facility] Reported Date/Time: Performed By: #### 1 0231A, 899, 17101, %31988, 457, 3020X, 968T, %SBNOCULI, [id number] #### [facility] Default [address] [place] [address] MONO% 5.0 % Normal [facility] Specialist Comment on above: Order Comment: [facility] performed at: [email or web address], [employer] [facility], [address] [facility], [address] [place] [address], [address] [place] [address], Wire Spooler: Ponce Lea MD [facility] Date/Time: [id number] [facility] Results Received Date/Time: [facility] Reported Date/Time: Performed By: #### 1 0231A, 899, 90293, %89901, 457, 3020X, 968T, %SBNOCULI, [id number] #### [facility] Default [address] [place] [address] MONOABS 360 cells/uL Normal 200-950 [facility] [employer] Comment on above: Order Comment: [facility] performed at: [email or web address], [employer] [facility], [address] [place] [address], [address] [place] [address], [address] [place] [address], Wire Spooler: Ponce Lea MD [facility] Date/Time: [id number] [facility] Results Received Date/Time: [facility] Reported Date/Time: Performed By: #### 1 0231A, 899, 10699, %73775, 457, 3020X, 968T, %SBNOCULI, 45666Q #### [facility] Default [address] [place] [address] NEUT# 1800 cells/uL Normal 8078-3155 [facility] [employer] Comment on above: Order Comment: [facility] performed at: [email or web address], [employer] [facility], [address] [facility], [address] [place] [address], [address] [place] [address], Wire Spooler: Ponce Lea MD [facility] Date/Time: [id number] [facility] Results Received Date/Time: [facility] Reported Date/Time: Performed By: #### 1 0231A, 899, 36302, %66700, 457, 3020X, 968T, %SBNOCULI, [id number] #### [facility] Default [address] [place] [address] NEUT% 25.0 % Normal [facility] Comment on above: Order Comment: [facility] performed at: [email or web address], [employer] [facility], [address] [facility], [address] [place] [address], [address] [place] [address], Wire Spooler: Ponce Lea MD [facility] Date/Time: [id number] [facility] Results Received Date/Time: [facility] Reported Date/Time: Performed By: #### 1 0231A, 899, 81839, %62884, 457, 3020X, 968T, %SBNOCULI, 22665D #### [facility] Default [address] [place] [address] Q - FERRITINon 02-26-2022 FERR 36 ng/mL Normal 16-154 [facility] [employer] Comment on above: Order Comment: [facility] Testing performed at: [employer] [facility], [address] [facility], [address] [place] [address], [address] [place] [address], Wire Spooler: Ponce Lea MD [facility] Collection Date/Time: [id number] [facility] Results Received Date/Time: [facility] Reported Date/Time: Performed By: #### 1 0231A, 899, 89799, %57111, 457, 3020X, 968T, %SBNOCULI, [id number] #### [facility] Default [address] [place] [address] Q - Lipid Panelon 02-26-2022 Cholesterol [Mass/Vol] 156 mg/dL Normal <200 No [facility] Comment on above: Order Comment: [facility] Testing performed at: [email or web address] [facility], [address] [place] [address], [address] [place] [address], [address] [place] [address], Wire Spooler: Ponce Lea MD [facility] Collection Date/Time: [facility] Results Received Date/Time: [facility] Reported Date/Time: Performed By: #### 1 0231A, 899, 74043, %84731, 457, 3020X, 968T, %SBNOCULI, [id number] #### [facility] Default [address] [place] [address] Cholesterol in HDL [Mass/Vol] 61 mg/dL Normal > OR = 50 [facility] Specialist Comment on above: Order Comment: [facility] Testing performed at: [email or web address] [facility], [address] [place] [address], [address] [place] [address], [address] [place] [address], Wire Spooler: Ponce Lea MD [facility] Collection Date/Time: [id number] [facility] Results Received Date/Time: [facility] Reported Date/Time: Performed By: #### 1 0231A, 899, 05121, %68736, 457, 3020X, 968T, %SBNOCULI, [id number] #### [facility] Default [address] [place] [address] Cholesterol in LDL [Mass/Vol] 82 mg/dL Normal [facility] Specialist Comment on above: Order Comment: [facility] Testing performed at: [email or web address] [facility], [address] [place] [address], [address] [place] [address], [address] [place] [address], Wire Spooler: Ponce Lea MD [facility] Collection Date/Time: [id number] [facility] Results Received Date/Time: [facility] Reported Date/Time: Result Comment: Refe rence range: <100 Desirable range <100 mg/dL for primary prevention; <70 mg/dL for patients with CHD or diabetic patients with > or = 2 CHD risk factors. LDL-C is now calculated using the Ernie-Flores calculation, which is a validated novel method providing better accuracy than the Friedewald equation in the estimation of LDL-C. Ernie ESQUIVEL et al. JUANJO. 2013;310(19): 4965-4642 (http://education.mnlakeplace.com/faq/XRJ121) Performed By: #### 1 0231A, 899, 96856, %48279, 457, 3020X, 968T, %SBNOCULI, [id number] #### [facility] Default [address] [place] [address] Cholesterol.total/Cholestero l in HDL [Mass ratio] 2.6 {ratio} Normal <5.0 [facility] Specialist Comment on above: Order Comment: [facility] Testing performed at: [email or web address] [facility], [address] [place] [address], [address] [place] [address], Wire Spooler: Ponce Lea MD [facility] Collection Date/Time: [facility] Results Received Date/Time: [facility] Reported Date/Time: Performed By: #### 1 0231A, 899, 75657, %68371, 457, 3020X, 968T, %SBNOCULI, [id number] #### [facility] Default [address] [place] [address] NON HDL CHOLESTEROL 95 mg/dL (calc) Normal <130 [facility] [employer] Expediter Comment on above: Order Comment: [facility] Testing performed at: [email or web address] [facility], [address] [place] [address], [address] [place] [address], [address] [place] [address], Wire Spooler: Ponce Lea MD [facility] Collection Date/Time: [facility] Results Received Date/Time: [facility] Reported Date/Time: Result Comment: For patients with diabetes plus 1 major ASCVD risk factor, treating to a non-HDL-C goal of <100 mg/dL (LDL-C of <70 mg/dL) is considered a therapeutic option. Performed By: #### 1 0231A, 899, 60425, %25359, 457, 3020X, 968T, %SBNOCULI, [id number] #### [facility] Default [address] [place] [address] Triglyceride [Mass/Vol] 54 mg/dL Normal <150 [facility] Comment on above: Order Comment: [facility] Testing performed at: [email or web address] [facility], [address] , [address] [place] [address], [address] [place] [address], Wire Spooler: Ponce Lea MD [facility] Collection Date/Time: [facility] Results Received Date/Time: [facility] Reported Date/Time: Performed By: #### 1 0231A, 899, 35267, %23823, 457, 3020X, 968T, %SBNOCULI, [id number] #### [facility] Default [address] [place] [address] Q - T4,FREEon 02-26-2022 Free T4 [Mass/Vol] 1.2 ng/dL Normal 0.8-1.4 [facility] Specialist Comment on above: Order Comment: [facility] Testing performed at: [email or web address] [facility], [address] [facility], [address] [place] [address], [address] [place] [address], Wire Spooler: Ponce Lea MD [facility] Collection Date/Time: [facility] Results Received Date/Time: [facility] Reported Date/Time: Performed By: #### 1 0231A, 899, 42773, %08770, 457, 3020X, 968T, %SBNOCULI, [id number] #### [facility] Default [address] [place] [address] Q - TSHon 02-26-2022 TSH Qn 1.95 m[IU]/L Normal [facility] Comment on above: Order Comment: [facility] Testing performed at: [email or web address] [facility], [address] , [address] [place] [address], [address] [place] [address], Wire Spooler: Ponce Lea MD [facility] Collection Date/Time: [facility] Results Received Date/Time: [facility] Reported Date/Time: Result Comment: Refe rence Range > or = 20 Years 0.40-4.50 Ranges First trimester 0.26-2.66 Second trimester 0.55-2.73 Third trimester 0.43-2.91 Performed By: #### 1 0231A, 899, 29646, %50002, 457, 3020X, 968T, %SBNOCULI, [id number] #### [facility] Default [address] [place] [address] Q - UR CULT REFLEXon 022 REFLEXIVE URINE CULTURE SEE NOTE Normal N [facility] Specialist Comment on above: Order Comment: [facility] Testing performed at: [employer] [facility], [address] [place] [address], [address] [place] [address], [id number], Wire Spooler: Ponce Lea MD [facility] Collection Date/Time: [facility] Results Received Date/Time: [facility] Reported Date/Time: Result Comment: NO C ULTURE INDICATED Performed By: #### 1 0231A, 899, 24768, %44594, 457, 3020X, 968T, %SBNOCULI, [id number] #### [facility] Default [address] [place] [address] Q - URINALYSIS,COMPLETE,WITH REFLEX TO CULTUREon 02-26-2022 Appearance (U) CLEAR Normal CLEAR [facility] [employer] Comment on above: Order Comment: [facility] Testing performed at: [employer] [facility], 5 [facility], [address] [place] [address], [id number], Wire Spooler: Ponce Lea MD [facility] Collection Date/Time: [facility] Results Received Date/Time: [facility] Reported Date/Time: Performed By: #### 1 0231A, 899, 67457, %20782, 457, 3020X, 968T, %SBNOCULI, [id number] #### [facility] Default [address] [place] [address] BACTERIA NONE SEEN Normal NONE SEEN [facility] [employer] Comment on above: Order Comment: [facility] Testing performed at: [employer] [facility], [address] , [address] [place] [address], [address] [place] [address], Wire Spooler: Ponce Lea MD [facility] Collection Date/Time: [facility] Results Received Date/Time: [facility] Reported Date/Time: Performed By: #### 1 0231A, 899, 44618, %40009, 457, 3020X, 968T, %SBNOCULI, [id number] #### [facility] Default [address] [place] [address] Bilirubin Ql (U) Negative Normal NEGATIVE [facility] Specialist Comment on above: Order Comment: [facility] Testing performed at: [email or web address] [facility], [address] , [address] [place] [address], [address] [place] [address], Wire Spooler: Ponce Lea MD [facility] Collection Date/Time: [facility] Results Received Date/Time: [facility] Reported Date/Time: Performed By: #### 1 0231A, 899, 56943, %68163, 457, 3020X, 968T, %SBNOCULI, [id number] #### [facility] Default [address] [place] [address] Color (U) YELLOW Normal YELLOW [facility] [employer] Comment on above: Order Comment: [facility] Testing performed at: [email or web address] [facility], [address] , [address] [place] [address], [address] [place] [address], Wire Spooler: Ponce Lea MD [facility] Collection Date/Time: [facility] Results Received Date/Time: [facility] Reported Date/Time: Performed By: #### 1 0231A, 899, 99985, %69153, 457, 3020X, 968T, %SBNOCULI, [id number] #### [facility] Default [address] [place] [address] Glucose Ql (U) Negative Normal NEGATIVE [facility] [employer] Comment on above: Order Comment: [facility] Testing performed at: [employer] [facility], [address] [place] [address], [address] [place] [address], [address] [place] [address], Wire Spooler: Ponce Lea MD [facility] Collection Date/Time: [facility] Results Received Date/Time: [facility] Reported Date/Time: Performed By: #### 1 0231A, 899, 79179, %24466, 457, 3020X, 968T, %SBNOCULI, [id number] #### [facility] Default [address] [place] [address] HYALINE CAST NONE SEEN Normal NONE SEEN [facility] [employer] Comment on above: Order Comment: [facility] Testing performed at: [email or web address] [facility], [address] [place] [address], [address] [place] [address], [address] [place] [address], Wire Spooler: Ponce Lea MD [facility] Collection Date/Time: [facility] Results Received Date/Time: [facility] Reported Date/Time: Performed By: #### 1 0231A, 899, 73946, %54590, 457, 3020X, 968T, %SBNOCULI, [id number] #### [facility] Default [address] [place] [address] Ketones Ql (U) Negative Normal NEGATIVE [facility] [employer] Exped[employer] Comment on above: Order Comment: [facility] Testing performed at: [email or web address] [facility], [address] [place] [address], [address] [place] [address], [address] [place] [address], Wire Spooler: Ponce Lea MD [facility] Collection Date/Time: [facility] Results Received Date/Time: [facility] Reported Date/Time: Performed By: #### 1 0231A, 899, 75696, %70547, 457, 3020X, 968T, %SBNOCULI, [id number] #### [facility] Default [address] [place] [address] Leukocyte esterase Test stri p Ql (U) Negative Normal NEGATIVE [facility] [employer] Exped[employer] Comment on above: Order Comment: [facility] Testing performed at: [employer] [facility], 5 [facility], [address] [place] [address], [address] [place] [address], Wire Spooler: Ponce Lea MD [facility] Collection Date/Time: [facility] Results Received Date/Time: [facility] Reported Date/Time: Performed By: #### 1 0231A, 899, 33478, %75264, 457, 3020X, 968T, %SBNOCULI, 76237Z #### [facility] Default [address] [place] [address] Nitrite Ql (U) Negative Normal NEGATIVE [facility] [employer] Exped[employer] Comment on above: Order Comment: [facility] Testing performed at: [employer] [facility], 5 [facility], [address] [place] [address], [address] [place] [address], Wire Spooler: Ponce Lea MD [facility] Collection Date/Time: [facility] Results Received Date/Time: [facility] Reported Date/Time: Performed By: #### 1 0231A, 899, 50904, %13745, 457, 3020X, 968T, %SBNOCULI, [id number] #### [facility] Default [address] [place] [address] OCCULT BLOOD Negative Normal NEGATIVE [facility] [employer] Comment on above: Order Comment: [facility] Testing performed at: [email or web address] [facility], 5 [facility], [address] [place] [address], [address] [place] [address], Wire Spooler: Ponce Lea MD [facility] Collection Date/Time: [id number] [facility] Results Received Date/Time: [facility] Reported Date/Time: Performed By: #### 1 0231A, 899, 18574, %00428, 457, 3020X, 968T, %SBNOCULI, [id number] #### [facility] Default [address] [place] [address] pH (U) [pH] Normal 5.0-8.0 [facility] [employer] Expediter Comment on above: Order Comment: [facility] Testing performed at: [employer] [facility], 5 [facility], [address] [place] [address], [address] [place] [address], Wire Spooler: Ponce Lea MD [facility] Collection Date/Time: [facility] Results Received Date/Time: [facility] Reported Date/Time: Performed By: #### 1 0231A, 899, 21346, %91762, 457, 3020X, 968T, %SBNOCULI, [id number] #### [facility] Default [address] [place] [address] Protein Ql (U) Negative Normal NEGATIVE [facility] [employer] Exped[employer] Comment on above: Order Comment: [facility] Testing performed at: [employer] [facility], [address] [place] [address], [address] [place] [address], [address] [place] [address], Wire Spooler: Ponce Lea MD [facility] Collection Date/Time: [facility] Results Received Date/Time: [facility] Reported Date/Time: Performed By: #### 1 0231A, 899, 81908, %48788, 457, 3020X, 968T, %SBNOCULI, [id number] #### [facility] Default [address] [place] [address] RBC NONE SEEN Normal < OR = 2 [facility] [employer] Expediter Comment on above: Order Comment: [facility] Testing performed at: [email or web address] [facility], 5 [facility], [address] [place] [address], [address] [place] [address], Wire Spooler: Ponce Lea MD [facility] Collection Date/Time: [facility] Results Received Date/Time: [facility] Reported Date/Time: Performed By: #### 1 0231A, 899, 08966, %37014, 457, 3020X, 968T, %SBNOCULI, [id number] #### [facility] Default [address] [place] [address] Specific gravity (U) [Rel density] 1.028 Normal 1.001-1.03 5 [facility] [employer] Expediter Comment on above: Order Comment: [facility] Testing performed at: [employer] [facility], [address] [place] [address], [address] [place] [address], [address] [place] [address], Wire Spooler: Ponce Lea MD [facility] Collection Date/Time: [facility] Results Received Date/Time: [facility] Reported Date/Time: Performed By: #### 1 0231A, 899, 04000, %90010, 457, 3020X, 968T, %SBNOCULI, [id number] #### [facility] Default [address] [place] [address] SQUAMOUS EPITHELIAL CELLS 0-5 Normal < OR = 5 [facility] [employer] Expediter Comment on above: Order Comment: [facility] Testing performed at: [employer] [facility], [address] [place] [address], [address] [place] [address], [address] [place] [address], Wire Spooler: Ponce Lea MD [facility] Collection Date/Time: [facility] Results Received Date/Time: [facility] Reported Date/Time: Performed By: #### 1 0231A, 899, 69503, %96004, 457, 3020X, 968T, %SBNOCULI, [id number] #### [facility] Default [address] [place] [address] WBC 0-5 Normal < OR = 5 [facility] [employer] Expediter Comment on above: Order Comment: [facility] Testing performed at: [email or web address] [facility], 5 [facility], [address] [place] [address], [address] [place] [address], Wire Spooler: Ponce Lea MD [facility] Collection Date/Time: [facility] Results Received Date/Time: [facility] Reported Date/Time: Performed By: #### 1 0231A, 899, 54395, %10686, 457, 3020X, 968T, %SBNOCULI, [id number] #### [facility] Default [address] [place] [address] FEMUR RIGHT 2 VWSon 02-18-20 18 FEMUR RIGHT 2 VWS [facility] [address]cy[address]mdxy[address] [place] [address] Pa tient Name: CORINNE HUNT : 2000Sex: FAge: Race: OtherMRN: [id number]. Location: 84Patient Status: Date: 02/17/2018 1:45:00 PMCompleted Date: 02/17/2018 01:54 PMRequesting Provider: PAT LUNA Attending Provider: Report Copy To: Signs & Symptoms: M25.561 Pain in right knee [id number]: AthenaComments: , , , Ordering Provider - PAT LUNA MD , Rendering Provider - PAT LUNA MD , Exam: FEMUR RIGHT 2 VWSAccession #: [id number] =====FEMUR RIGHT 2 S 02/17/2018 1:54 PM EDT SIGNS AND SYMPTOMS: M25.561 Pain in right knee I10 TECHNOLOGIST COMMENTS: Patient has right knee for 3 years from volleyball. Pain in femur for 1 month. QUESTION FOR THE RADIOLOGIST: , , , Ordering Provider - PAT LUNA MD , Rendering Provider - PAT LUNA MD , PROTOCOL: AP(PA) and Lateral views were obtained. COMPARISON: None FINDINGS: Soft tissues:No significant soft tissue swelling or suprapatellar effusion. Bones:Right femur appears intact. Normal bone density. No acute bony abnormality. Joints:Normal right hip and knee joint spaces. IMPRESSION: 1. Normal examination of the right femur. Electronically signed by:Cesar Aguilar. Transcribed by: [email or web address], User Resident: Electronically Signed by: CESAR AGUILAR @ 02/17/2018 04:49 PM Normal [facility] Comment on above: Order Comment: , , = ========= , Ordering Provider - PAT LUNA MD , Rendering Provider - PAT LUNA MD , KNEE RIGHT 3 Son 8 KNEE RIGHT 3 S [facility] [address] [place] [id number] Nico tient Name: CORINNE HUNT : 2000Sex: FAge: Race: OtherMRN: [id number]. Location: 84Patient Status: Date: 02/17/2018 1:45:00 PMCompleted Date: 02/17/2018 01:54 PMRequesting Provider: PAT LUNA Attending Provider: Report Copy To: Signs & Symptoms: M25.561 Pain in right knee [id number]: AthenaComments: , , , Ordering Provider - PAT LUNA MD , Rendering Provider - PAT LUNA MD , Exam: KNEE RIGHT 3 VWSAccession #: [id number] =====KNEE RIGHT 3 VWS 02/17/2018 1:54 PM EDT SIGNS AND SYMPTOMS: M25.561 Pain in right knee I10 TECHNOLOGIST COMMENTS: Patient has right knee for 3 years from volleyball. Pain in femur for 1 month. QUESTION FOR THE RADIOLOGIST: , , , Ordering Provider Jaquelin LUNA MD , Rendering Jeri LUNA MD , PROTOCOL: AP,Lateral and Tangential views were obtained. COMPARISON: None FINDINGS: Soft tissues:No significant soft tissue swelling. No suprapatellar effusion is appreciated. Bones:There is normal bone density. No evidence of acute bony abnormality. Joints:Normal right knee joint spaces. IMPRESSION: 1. Normal examination of the right knee. Electronically signed by:Cesar Aguilar. Transcribed by: [email or web address], User Resident: Electronically Signed by: CESAR AGUILAR @ 02/17/2018 04:59 PM Normal [facility] Comment on above: Order Comment: , , = ========= , Ordering Provider - PTA LUNA MD , Rendering Provider - PAT LUNA MD , Vital Signs Date Time Vital Sign Value Performing Clinician Facility 08-14-2025 12:59-0400 Body height 170.2 cm [facility] 08-14-2025 12:59-0400 Body mass index (BMI) [Ratio] 20.83 kg/m2 [facility] 08-14-2025 12:59-0400 Body weight 60.33 kg [facility] 08-14-2025 12:59-0400 Diastolic blood pressure 62 mm[Hg] [facility] 08-14-2025 12:59-0400 Systolic blood pressure 100 mm[Hg] [facility] 07-17-2025 12:59-0400 Body height 170.2 cm [facility] 07-17-2025 12:59-0400 Body mass index (BMI) [Ratio] 21.3 kg/m2 [facility] 07-17-2025 12:59-0400 Body weight 61.69 [facility] 07-17-2025 12:59-0400 Diastolic blood pressure 60 mm[Hg] [facility] 07-17-2025 12:59-0400 Systolic blood pressure 110 mm[Hg] [facility] 07-04-2025 15:55-0400 Body temperature 98.2 [degF] Rosie Clark SUPERVISOR [employer] Work Phone: [facility] 07-04-2025 15:55-0400 Diastolic blood pressure 69 mm[Hg] Rosie Clark SUPERVISOR [employer] Work Phone: [facility] 07-04-2025 15:55-0400 Heart rate 58 /min Rosie Clark SUPERVISOR [employer] Work Phone: [facility] 07-04-2025 15:55-0400 Respiratory rate 16 /min Rosie Clark SUPERVISOR [employer] Work Phone: [facility] 07-04-2025 15:55-0400 Systolic blood pressure 123 mm[Hg] Rosie Clark SUPERVISOR [employer] Work Phone: [facility] 07-04-2025 15:23-0400 Body mass index (BMI) [Ratio] 22.41 kg/m2 Rosie Clark SUPERVISOR [employer] Work Phone: [facility] 07-04-2025 15:23-0400 Body weight 64.9 kg Rosie Clark SUPER[employer]OR [employer] Work Phone: [facility] 07-03-2025 12:30-0400 SaO2% (BldA) [Mass fraction] 100 % Rosie Clark SUPER[employer] Work Phone: [facility] 07-02-2025 13:21-0400 Body mass index (BMI) [Ratio] 24.18 kg/m2 Rachel Rivera DO Work Phone: [facility] 07-02-2025 13:21-0400 Body weight 70.03 kg Rachel Rivera DO Work Phone: [facility] 07-02-2025 13:21-0400 Diastolic blood pressure 82 mm[Hg] Rachel Rivera DO Work Phone: [facility] 07-02-2025 13:21-0400 Systolic blood pressure 122 mm[Hg] Rachel Rivera DO Work Phone: [facility] 06-26-2025 11:25-0400 Body mass index (BMI) [Ratio] 23.78 kg/m2 [facility] 06-26-[facility]25 11:25-0400 Body weight 68.86 kg [facility] 06-26-2025 11:25-0400 Diastolic blood pressure 70 mm[Hg] [facility] 06-26-2025 11:25-0400 Systolic blood pressure 110 mm[Hg] [facility] 06-19-2025 11:38-0400 Body mass index (BMI) [Ratio] 23.93 kg/m2 [facility] 06-19-2025 11:38-0400 Body weight 69.31 kg [facility] 06-19-2025 11:38-0400 Diastolic blood pressure 70 mm[Hg] [facility] 06-19-2025 11:38-0400 Systolic blood pressure 116 mm[Hg] [facility] 06-13-2025 13:09-0400 Body mass index (BMI) [Ratio] 23.99 kg/m2 Nicolasa Gabby SUPERVISOR [employer] Work Phone: [facility] 06-13-2025 13:09-0400 Body weight 69.49 kg Nicolasa Gabby SUPERVISOR [employer] Work Phone: [facility] 06-13-2025 13:09-0400 Diastolic blood pressure 80 mm[Hg] Nicolasa Gabby SUPERVISOR [employer] Work Phone: [facility] 06-13-2025 13:09-0400 Systolic blood pressure 120 mm[Hg] Nicolasa Pierre SUPERVISOR [employer] Work Phone: [facility] 06-12-2025 10:36-0400 Diastolic blood pressure 65 mm[Hg] Pfo 1 [facility] 06-12-2025 10:36-0400 Heart rate 78 /min Pfo 1 [facility] 06-12-2025 10:36-0400 Respiratory rate 16 /min Pfo 1 [facility] 06-12-2025 10:36-0400 SaO2% (BldA) [Mass fraction] 99 % Pfo 1 [facility] 06-12-2025 10:36-0400 Systolic blood pressure 106 mm[Hg] Pfo 1 [facility] 06-12-2025 10:06-0400 Body height 170.2 cm Pfo 1 [facility] 06-12-2025 10:06-0400 Body mass index (BMI) [Ratio] 23.96 kg/m2 Pfo 1 [facility] 06-12-2025 10:06-0400 Body temperature 98.2 [degF] Pfo 1 [facility] 06-12-2025 10:06-0400 Body weight 69.4 kg Pfo 1 [facility] 06-10-2025 10:00-0400 Diastolic blood pressure 55 mm[Hg] Pfo 2 [facility] 06-10-2025 10:00-0400 Heart rate 69 /min Pfo 2 [facility] 06-10-2025 10:00-0400 Respiratory rate 18 /min Pfo 2 [facility] 06-10-2025 10:00-0400 Systolic blood pressure 101 mm[Hg] Pfo 2 [facility] 06-10-2025 09:15-0400 Body height 170.2 cm Pfo 2 [facility] 06-10-2025 09:15-0400 Body mass index (BMI) [Ratio] 23.93 kg/m2 Pfo 2 [facility] 06-10-2025 09:15-0400 Body temperature 97.59 [degF] Pfo 2 [facility] 06-10-2025 09:15-0400 Body weight 69.31 kg Pfo 2 [facility] 06-10-2025 09:15-0400 SaO2% (BldA) [Mass fraction] 100 % Pfo 2 [facility] 06-07-2025 12:35-0400 Diastolic blood pressure 60 mm[Hg] Pfo 2 [facility] 06-07-2025 12:35-0400 Heart rate 63 /min Pfo 2 [facility] 06-07-2025 12:35-0400 Respiratory rate 16 /min Pfo 2 [facility] 06-07-2025 12:35-0400 SaO2% (BldA) [Mass fraction] 99 % Pfo 2 [facility] 06-07-2025 12:35-0400 Systolic blood pressure 105 mm[Hg] Pfo 2 [facility] 06-07-2025 11:33-0400 Body height 170.2 cm Pfo 2 [facility] 06-07-2025 11:33-0400 Body mass index (BMI) [Ratio] 23.77 kg/m2 Pfo 2 [facility] 06-07-2025 11:33-0400 Body temperature 98.01 [degF] Pfo 2 [facility] 06-07-2025 11:33-0400 Body weight 68.86 kg Pfo 2 [facility] 06-05-2025 10:11-0400 Body temperature 98.01 [degF] Pfo 6 [facility] 06-05-2025 10:11-0400 Diastolic blood pressure 60 mm[Hg] Pfo 6 [facility] 06-05-2025 10:11-0400 Heart rate 64 /min Pfo 6 [facility] 06-05-2025 10:11-0400 Respiratory rate 16 /min Pfo 6 [facility] 06-05-2025 10:11-0400 SaO2% (BldA) [Mass fraction] 99 % Pfo 6 [facility] 06-05-2025 10:11-0400 Systolic blood pressure 119 mm[Hg] Pfo 6 [facility] 06-05-2025 09:08-0400 Body height 170.2 cm Pfo 6 [facility] 06-05-2025 09:08-0400 Body mass index (BMI) [Ratio] 23.81 kg/m2 Pfo 6 [facility] 06-05-2025 09:08-0400 Body weight 68.95 kg Pfo 6 [facility] 06-03-2025 10:11-0400 Diastolic blood pressure 67 mm[Hg] Pfo 4 [facility] 06-03-2025 10:11-0400 Heart rate 60 /min Pfo 4 [facility] 06-03-2025 10:11-0400 Respiratory rate 16 /min Pfo 4 [facility] 06-03-2025 10:11-0400 Systolic blood pressure 104 mm[Hg] Pfo 4 [facility] 06-03-2025 09:05-0400 Body mass index (BMI) [Ratio] 24.31 kg/m2 Pfo 4 [facility] 06-03-2025 09:05-0400 Body temperature 98.29 [degF] Pfo 4 [facility] 06-03-2025 09:05-0400 Body weight 68.31 kg Pfo 4 [facility] 06-03-2025 09:05-0400 SaO2% (BldA) [Mass fraction] 100 % Pfo 4 [facility] 05-28-2025 14:41-0400 Body mass index (BMI) [Ratio] 24.15 kg/m2 María Bui MD Work Phone: [facility] 05-28-2025 14:41-0400 Body weight 67.86 kg María Bui MD Work Phone: [facility] 05-28-2025 14:41-0400 Diastolic blood pressure 66 mm[Hg] María Bui MD Work Phone: [facility] 05-28-2025 14:41-0400 Systolic blood pressure 90 mm[Hg] María Bui MD Work Phone: [facility] 05-13-2025 09:07-0400 Body mass index (BMI) [Ratio] 23.76 kg/m2 Genevieve Toure SUPERVISOR GLYCERIN-NEWSPAPER STUFFER Work Phone: [facility] 05-13-2025 09:07-0400 Body weight 66.77 kg Genevieve Toure SUPERVISOR GLYC[employer]IN-NEWSPAPER STUFFER Work Phone: [facility] 05-13-2025 09:07-0400 Diastolic blood pressure 64 mm[Hg] Genevieve Toure SUPERVISOR GL[employer]-NEWSPAPER STUFFER Work Phone: [facility] 05-13-2025 09:07-0400 Systolic blood pressure 102 mm[Hg] Genevieve Toure SUPERVISOR GL[employer]-NEWSPAPER STUFFER Work Phone: [facility] 05-01-2025 09:17-0400 Body mass index (BMI) [Ratio] 23.92 kg/m2 Nicolasa Krotzer SUPERVISOR GLYC[employer]IN-NEWSPAPER STUFFER Work Phone: [facility] 05-01-2025 09:17-0400 Body weight 67.22 kg Nicolasa Krotzer SUPERVISOR GL[employer]-NEWSP[employer]ER STUFFER Work Phone: [facility] 05-01-2025 09:17-0400 Diastolic blood pressure 62 mm[Hg] Nicolasa Krotzer SUPERVISOR GL[employer]-NEWSPAPER STUFFER Work Phone: [facility] 05-01-2025 09:17-0400 Systolic blood pressure 108 mm[Hg] Nicolasa Krotzer SUPERVISOR GL[employer]-NEWSPAPER STUFFER Work Phone: [facility] 04-23-2025 14:23-0400 Body mass index (BMI) [Ratio] 23.6 kg/m2 María Bui MD Work Phone: [facility] 04-23-2025 14:23-0400 Body weight 66.32 kg María Bui MD Work Phone: [facility] 04-23-2025 14:23-0400 Diastolic blood pressure 58 mm[Hg] María Bui MD Work Phone: [facility] 04-23-2025 14:23-0400 Systolic blood pressure 122 mm[Hg] María Bui MD Work Phone: [facility] 04-17-2025 08:53-0400 Body mass index (BMI) [Ratio] 23.77 kg/m2 [facility] 04-17-2025 08:53-0400 Body weight 66.81 kg [facility] 04-17-2025 08:53-0400 Diastolic blood pressure 62 mm[Hg] [facility] 04-17-2025 08:53-0400 Systolic blood pressure 104 mm[Hg] [facility] 04-03-2025 08:50-0400 Body mass index (BMI) [Ratio] 23.57 kg/m2 [facility] 04-03-2025 08:50-0400 Body weight 66.22 kg [facility] 04-03-2025 08:50-0400 Diastolic blood pressure 64 mm[Hg] [facility]25 08:50-0400 Systolic blood pressure 120 mm[Hg] [facility] 03-06-2025 08:52-0400 Body mass index (BMI) [Ratio] 22.66 kg/m2 [facility] 03-06-2025 08:52-0400 Body weight 63.69 kg [facility] 03-06-2025 08:52-0400 Diastolic blood pressure 58 mm[Hg] [facility] 03-06-2025 08:52-0400 Systolic blood pressure 102 mm[Hg] [facility] 02-06-2025 08:51-0400 Body mass index (BMI) [Ratio] 22.02 kg/m2 [facility] 02-06-2025 08:51-0400 Body weight 61.87 kg [facility] 02-06-2025 08:51-0400 Diastolic blood pressure 60 mm[Hg] [facility] 02-06-2025 08:51-0400 Systolic blood pressure 104 mm[Hg] [facility] 08-09-2024 15:30-0400 Body mass index (BMI) [Ratio] 21.47 kg/m2 Rylee Floro CNM Work Phone: [facility] 08-09-2024 15:30-0400 Body weight 58.51 kg Rylee Radhao CNM Work Phone: [facility] 08-09-2024 15:30-0400 Diastolic blood pressure 60 mm[Hg] Rylee Floro CNM Work Phone: [facility] 08-09-2024 15:30-0400 Systolic blood pressure 102 mm[Hg] Rylee Floro CNM Work Phone: [facility] 07-12-2024 14:31-0400 Body mass index (BMI) [Ratio] 21.3 kg/m2 Rylee Floro CNM Work Phone: [facility] 07-12-2024 14:31-0400 Body weight 58.06 kg Rylee Floro CNM Work Phone: [facility] 07-12-2024 14:31-0400 Diastolic blood pressure 70 mm[Hg] Rylee Floro CNM Work Phone: [facility] 07-12-2024 14:31-0400 Systolic blood pressure 110 mm[Hg] Rylee Floro CNM Work Phone: [facility] 06-18-2024 17:01-0400 Body mass index (BMI) [Ratio] 22.47 kg/m2 Rylee Floro CNM Work Phone: [facility] 06-18-2024 17:01-0400 Body weight 61.24 kg Rylee Radhao CNM Work Phone: [facility] Healthcare Encounters Encounter Date Encounter Type Care Provider Facility Start: 08-14-2025 End: 08-14-2025 [facility] Comment on above: care and examination (Primary Dx); Lactating mother Start: 08-14-2025 End: 08-14-2025 ambulatory [facility] Start: 07-17-2025 End: 07-17-2025 [facility] Spec [facility] Comment on above: care foll owing vaginal delivery (Primary Dx); Anemia in , third trimester; Lactating mother; Hemorrhoids, unspecified hemorrhoid type; anxiety Start: 07-17-2025 End: 07-17-2025 [facility] Start: 07-03-2025 End: 07-04-2025 Evaluation and management of inpatient Rosie Clark APRN-CNM Work Phone: [facility] Comment on above: Anemia in , third trimester Start: 07-02-2025 End: 07-02-2025 ambulatory [facility] Start: 07-02-2025 End: 07-02-2025 [facility]: [facility] Comment on above: GA: 39w2d Start: 07-01-2025 End: 07-01-2025 [facility] ANTONY Chavez [facility] Start: 06-26-2025 End: 06-26-2025 [facility] Communication Spec [facility] Comment on above: GA: 38w3d Start: 06-26-2025 End: 06-26-2025 [facility] Start: 06-23-2025 End: 06-24-2025 [facility] Start: 06-20-2025 End: 08-20-2025 Follow-up encounter Nicolasa Pierre APRN-NEWSPAPER STUFFER Work Phone: [facility] Comment on above: Ultrasound transabdominal follow up per fetus Start: 06-20-2025 End: 06-20-2025 [facility] Start: 06-20-2025 End: 06-20-2025 ambulatory NICOLASA PIERRE [facility] Start: 06-19-2025 End: 06-19-2025 [facility] Communication Spec [facility] Comment on above: GA: 37w3d Start: 06-19-2025 End: 06-19-2025 ambulatory ANNE LLANES [facility] Start: 06-16-2025 End: 08-16-2025 Follow-up encounter Rosie Doris Nilam SUPERVISOR GLYCERIN-CNM Work Phone: [facility] Comment on above: Strep B screen Start: 06-13-2025 End: 06-13-2025 Subsequent care visit Nicolasa Miltonquinnseth SUPERVISOR GLYCERIN-NEWSPAPER STUFFER Work Phone: [facility] Comment on above: GA: 36w4d Start: 06-13-2025 End: 06-13-2025 ambulatory [facility] Start: 06-12-2025 End: 06-12-2025 ambulatory [facility] Infusion Chair 1 [facility] Comment on above: Anemia in , third trimester (Primary Dx) Start: 06-11-2025 End: 06-11-2025 Telephone encounter Luz Elena Jung MA [facility] Start: 06-10-2025 End: 06-10-2025 ambulatory Pfo Infusion Chair 2 [facility] Comment on above: Anemia in , third trimester (Primary Dx) Start: 06-07-2025 End: 06-07-2025 ambulatory Pfo Infusion Chair 2 [facility] Comment on above: Anemia in , third trimester (Primary Dx) Start: 06-05-2025 End: 06-05-2025 ambulatory Pfo Infusion Chair 6 [facility] Comment on above: Anemia in , third trimester (Primary Dx) Start: 06-03-2025 End: 06-03-2025 ambulatory Pfo Infusion Chair 4 [facility] Comment on above: Anemia in , third trimester (Primary Dx) Start: 05-28-2025 End: 05-28-2025 Office outpatient visit 15 minutes María Bui MD Work Phone: [facility] Comment on above: GA: 34w2d Start: 05-28-2025 End: 05-28-2025 ambulatory [facility] Start: 05-28-2025 End: 05-28-2025 Office outpatient new 30 minutes [facility] SUPERVISOR GLYCERIN-NEWSPAPER STUFFER Work Phone: [facility] Comment on above: Anemia complicating , third trimester Start: 05-28-2025 End: 05-28-2025 ambulatory [facility] Start: 05-23-2025 End: 07-23-2025 Orders Only Nicolasa Pierre SUPERVISOR GLYCERIN-NEWSPAPER STUFFER Work Phone: [facility] Comment on above: Anemia complicating , third trimester (Primary Dx) Hemoglobin and hemat ocrit, blood, Ferritin, Iron and TIBC Start: 05-13-2025 End: 05-13-2025 Subsequent care visit Genevieve Toure SUPERVISOR GLYCERIN-NEWSPAPER STUFFER Work Phone: [facility] Comment on above: GA: 32w1d Start: 05-13-2025 End: 05-13-2025 [facility] Start: 05-01-2025 End: 05-01-2025 Subsequent care visit Nicolasa Pierre SUPERVISOR GLYCERIN-NEWSPAPER STUFFER Work Phone: [facility] Comment on above: GA: 30w3d Start: 05-01-2025 End: 05-01-2025 ambulatory NICOLASA MILTONSETH [facility] Start: 04-23-2025 End: 04-23-2025 Office outpatient visit 15 minutes María Bui MD Work Phone: [facility] Comment on above: GA: 29w2d Start: 04-23-2025 End: 04-23-2025 ambulatory NAWAF Friedman MESSI [facility] Start: 04-23-2025 End: 04-23-2025 Telephone encounter Luz Elena [facility]ron ns Obstetrics/Gynecolog y Start: 04-17-2025 End: 04-17-2025 Subsequent care visit [facility] Communication Spec [facility] Comment on above: GA: 28w3d Start: 04-17-2025 End: 04-17-2025 ambulatory [facility] Start: 04-10-2025 End: 04-10-2025 Orders Only Nicolasa Pierre SUPERVISOR GLYC[employer]IN-NEWSPAPER STUFFER Work Phone: [facility] Comment on above: Anemia in , third trimester (Primary Dx) Start: 04-03-2025 End: 04-03-2025 Subsequent care visit [facility] Communication Spec [facility] Comment on above: GA: 26w3d Start: 04-03-2025 End: 04-03-2025 ambulatory [facility] Start: 03-18-2025 End: 03-18-2025 ambulatory NICOLASA M [facility] Start: 03-06-2025 End: 03-06-2025 Subsequent care visit [facility] Communication Spec [facility] Comment on above: GA: 22w3d Start: 03-06-2025 End: 03-06-2025 ambulatory [facility] Start: 02-18-2025 End: 02-18-2025 ambulatory NICOLASA M [facility] Start: 02-11-2025 End: 02-11-2025 ambulatory ROSIE George [facility] Start: 02-06-2025 End: 02-06-2025 ambulatory NICOLASA M [facility] Start: 02-06-2025 End: 02-06-2025 Initial care visit [facility] Ob Communication Spec [facility] Comment on above: GA: 18w3d Start: 02-06-2025 End: 02-06-2025 ambulatory NICOLASA PIERRE [facility] Start: 02-06-2025 End: 02-06-2025 Encounter for gynecological examination (general) (routine) without abnormal findings [facility] Communication [facility] Start: 01-31-2025 End: 01-31-2025 ambulatory NICOLASA PIERRE [facility] Start: 01-15-2025 End: 01-15-2025 ambulatory NICOLASA PIERRE [facility] Start: 01-15-2025 End: 01-15-2025 Telemedicine consultation with patient Nicolasa Pierre SUPERVISOR GLYCERIN-NEWSPAPER STUFFER Work Phone: [facility] Comment on above: Second trimester pre gnancy (Primary Dx) Start: 08-09-2024 End: 08-09-2024 Subsequent care visit Rylee Wood CNM Work Phone: [facility] Comment on above: Encounter for superv ision of other normal , second trimester (Primary Dx); Nausea and vomiting during prior to 22 weeks gestation; related condition in second trimester Start: 08-09-2024 End: 08-09-2024 ambulatory RYLEE WOOD Not Available Start: 08-09-2024 End: 08-09-2024 Bamboo flowsheet Rylee Garciao CNM Work Phone: [facility] Start: 08-09-2024 End: 08-09-2024 Bamboo flowsheet Rylee Garciao CNM Work Phone: [facility] Start: 07-25-2024 End: 07-25-2024 Telephone encounter Rylee Wood CNM Work Phone: [facility] Comment on above: ob coverage Start: 07-12-2024 End: 07-12-2024 Subsequent care visit Rylee Wood CNM Work Phone: [facility] Comment on above: Nausea and vomiting during prior to 22 weeks gestation (Primary Dx); Encounter for supervision of other normal , first trimester Start: 07-12-2024 End: 07-12-2024 ambulatory RYLEE GARCIAO Not Available Start: 07-12-2024 End: 07-12-2024 Bamboo flowsheet Rylee Garciao CNM Work Phone: [facility] Start: 07-12-2024 End: 07-12-2024 Bamboo flowsheet Rylee Garciao CNM Work Phone: [facility] Start: 07-03-2024 End: 07-03-2024 Telephone encounter Rylee Wood CNM Work Phone: [facility] Start: 06-18-2024 End: 06-18-2024 Initial care visit Rylee Wood CNM Work Phone: [facility] Comment on above: GA: 7w4d Start: 06-18-2024 End: 06-18-2024 ambulatory RYLEE Lauren GARCIAO Not Available Start: 04-02-2024 End: 04-02-2024 ambulatory RYLEE Lauren FLORO Not Available Start: 03-27-2024 End: 03-27-2024 ambulatory RYLEE Lauren FLORO Not Available Start: 02-09-2024 End: 02-09-2024 ambulatory MAGDALENO ESCALANTE Not Available Start: 04-11-2022 End: 04-11-[address] MEREDITH CONTRERAS Facility: Start: 02-17-2018 End: 02-18-2018 Ambulatory DEFAULT PHYSICIAN Facility:[facility] Start: 02-17-2018 End: 02-18-2018 Ambulatory DEFAULT PHYSICIAN Facility:[facility] Start: 06-27-2017 End: 06-28-2017 Ambulatory ELODIA E [facility] Procedures Date Procedure Procedure Detail Performing Clinician Start: 07-17-2025 care Care NICOLASA PIERRE Start: 07-03-2025 End: 07-03-2025 Drug tst prsmv instrmnt chem analyzers pr date Rosie Clark SUPERVISOR GLYCERIN-CNM Work Phone: Start: 07-03-2025 EXTRA TUBES Rosie M Sh oley SUPERVISOR GLYCERIN-CNM Work Phone: Start: 07-03-2025 EXTRA TUBES PST TOP Marcelina Varghese SUPERVISOR GLYCERIN-CNM Work Phone: Start: 07-03-2025 Antibody screen NICOLASA PRATT Comment on above: Performed By: #### C [place], [id number], [id number], AHP, [id number], [id number]- [id number], [id number] #### [facility] ([id number]) [address], [address] [place] [address] Start: 07-03-2025 Blood count complete automated Rosie Clark SUPERVISOR GLYCERIN-CNM Work Phone: Start: 07-03-2025 TYPE AND SCREEN Rosie Clark SUPERVISOR GLYCERIN-CNM Work Phone: Start: 07-01-2025 Adult depression scr eening assessment Rachel Rivera DO Work Phone: Start: 06-24-2025 Antibody screen NICOLASA PRATT Comment on above: Performed By: #### C BC, [id number], [id number], AHP, [id number], [id number]- [id number], [id number] #### [facility] ([id number]) [address] [place] [address], [address] [place] [address] Start: 02-06-2025 Microscopic observat ion [Identifier] in Cervix by Cyto stain [facility] Start: 02-05-2025 Adult depression scr eening assessment [facility] Start: 06-26-2024 Urine test visual color cmprsn meths Rylee Lauren Wood CNM Work Phone: Plan of Treatment Date Care Activity Detail Author Start: 04-17-2035 DTaP,Tdap and Td Vaccines (8 - Td or Tdap) DTaP,Tdap and Td Vaccines (8 - Td or Tdap) [facility] Start: 04-17-2035 DTaP,Tdap and Td Vaccines (9 - Td or Tdap) DTaP,Tdap and Td Vaccines (9 - Td or Tdap) [facility] Start: 08-14-2031 DTaP,Tdap and Td Vaccines (8 - Td or Tdap) DTaP,Tdap and Td Vaccines (8 - Td or Tdap) [facility] Start: 02-07-2028 Screening for malign ant neoplasm of cervix Pap Smear [facility] Start: 08-14-2026 Adult BMI Screening Adult BMI Screen ing [facility] Start: 08-14-2026 Tobacco Screening Tobacco Screening [facility] Start: 07-17-2026 Adult BMI Screening Adult BMI Screen ing [facility] Start: 07-17-2026 Tobacco Screening Tobacco Screening [facility] Start: 07-02-2026 Adult BMI Screening Adult BMI Screen ing [facility] Start: 07-02-2026 Tobacco Screening Tobacco Screening [facility] Start: 07-01-2026 Depression Screening Depression Scre ening [facility] Start: 06-26-2026 Adult BMI Screening Adult BMI Screen ing [facility] Start: 06-26-2026 Tobacco Screening Tobacco Screening [facility] Start: 06-19-2026 Adult BMI Screening Adult BMI Screen ing [facility] Start: 06-19-2026 Tobacco Screening Tobacco Screening [facility] Start: 06-13-2026 Adult BMI Screening Adult BMI Screen ing [facility] Start: 06-13-2026 Tobacco Screening Tobacco Screening [facility] Start: 06-10-2026 Adult BMI Screening Adult BMI Screen ing [facility] Start: 06-10-2026 Tobacco Screening Tobacco Screening [facility] Start: 06-05-2026 Adult BMI Screening Adult BMI Screen ing [facility] Start: 06-05-2026 Tobacco Screening Tobacco Screening [facility] Start: 06-03-2026 Adult BMI Screening Adult BMI Screen ing [facility] Start: 06-03-2026 Tobacco Screening Tobacco Screening [facility] Start: 05-28-2026 Adult BMI Screening Adult BMI Screen ing [facility] Start: 05-28-2026 Tobacco Screening Tobacco Screening [facility] Start: 05-13-2026 Adult BMI Screening Adult BMI Screen ing [facility] Start: 05-13-2026 Tobacco Screening Tobacco Screening [facility] Start: 05-01-2026 Adult BMI Screening Adult BMI Screen ing [facility] Start: 05-01-2026 Tobacco Screening Tobacco Screening [facility] Start: 04-23-2026 Adult BMI Screening Adult BMI Screen ing [facility] Start: 04-23-2026 Screening for Chlamy radha trachomatis Chlamydia Screening [facility] Start: 04-23-2026 Tobacco Screening Tobacco Screening [facility] Start: 04-17-2026 Adult BMI Screening Adult BMI Screen ing [facility] Start: 04-17-2026 Tobacco Screening Tobacco Screening [facility] Start: 04-03-2026 Adult BMI Screening Adult BMI Screen ing [facility] Start: 04-03-2026 Tobacco Screening Tobacco Screening [facility] Start: 03-06-2026 Adult BMI Screening Adult BMI Screen ing [facility] Start: 02-06-2026 Adult BMI Screening Adult BMI Screen ing [facility] Start: 02-06-2026 Screening for Chlamy radha trachomatis Chlamydia Screening [facility] Start: 02-06-2026 Tobacco Screening Tobacco Screening [facility] Start: 02-05-2026 Depression Screening Depression Scre ening [facility] Start: 01-15-2026 Tobacco Screening Tobacco Screening [facility] Start: 08-14-2025 End: 08-14-2025 ambulatory 08/14/2025 1:00 PM EDT Visit [facility] [address] [place] [address] [facility] Start: 07-17-2025 End: 07-17-2025 ambulatory 07/17/2025 10:45 AM EDT Visit [facility] [address] [place] [address] [facility] Start: 07-15-2025 COVID-19 Vaccine ( season) COVID-19 Vaccine () [facility] Start: 07-15-2025 Influenza vaccination Influenza Vacc ine [facility] Start: 07-03-2025 End: 07-03-2025 Patient encounter procedure 07/03/2025 10:00 AM EDT Routine [facility] [address] [place] [address] [facility] Start: 06-26-2025 End: 06-26-2025 Patient encounter procedure 06/26/2025 11:30 AM EDT Routine [facility] [address] [place] [address] [facility] Start: 06-20-2025 End: 06-20-2025 Patient encounter procedure 06/20/2025 9:30 AM EDT Appointment [facility] - Ultrasound [address] [place] [id number] Nicolasa Pierre, SUPERVISOR GLYCERIN-NEWSPAPER STUFFER [address] [place] [address] [facility] Start: 06-19-2025 End: 06-19-2026 US for limited Ultrasound transabdominal follow up per fetus Imaging Routine Uterine size-date discrepancy in third trimester Expected: 06/19/2025, Expires: 06/19/2026 [facility] Work Phone: Comment on above: Expected: 06/19/2025 , Expires: 06/19/2026 Start: 06-19-2025 End: 06-19-2025 Patient encounter procedure 06/19/2025 11:45 AM EDT Routine [facility] [address] [place] [address] [facility] [place] Start: 06-13-2025 End: 06-13-2025 Patient encounter procedure 06/13/2025 1:00 PM EDT Routine [facility] [address] [place] [id number] Nicolasa Pierre, SUPERVISOR GLYCERIN-NEWSPAPER STUFFER [address] [place] [address] [facility] Start: 06-12-2025 End: 06-12-2025 ambulatory 06/12/2025 10:00 AM EDT Infusion [facility] [address] [place] [id number] [facility] Start: 06-10-2025 End: 06-10-2025 ambulatory 06/10/2025 9:00 AM EDT Infusion [facility] [address] [place] [id number] [facility] Oncology Start: 06-07-2025 End: 06-07-2025 ambulatory 06/07/2025 11:30 AM EDT Infusion [facility] [address] [place] [phone] [facility] Start: 06-05-2025 End: 06-05-2025 ambulatory 06/05/2025 9:00 AM EDT Infusion [facility] [address] [place] [phone] [facility] Start: 06-03-2025 End: 06-03-2025 ambulatory 06/03/2025 9:00 AM EDT Infusion [facility] [address] [place] [phone] [facility] Start: 05-28-2025 End: 05-28-2025 Telemedicine consultation with patient 05/28/2025 9:30 AM EDT Telemedicine [facility] [address] [place] [address] Robbie Sam, SUPERVISOR [employer] [address] [place] [address] [facility] Start: 05-27-2025 End: 05-27-2025 Patient encounter procedure 05/27/2025 9:15 AM EDT Routine [facility] [address] [facility] [place] [id number] María Bui MD [address] [facility] [place] [address] [facility] Start: 05-07-2025 Adult BMI Screening Adult BMI Screen [facility] Start: 05-01-2025 End: 05-01-2025 Patient encounter procedure 05/01/2025 9:15 AM EDT Routine [facility] [address] [facility] [place] [id number] Nicolasa Pierre, SUPERVISOR [facility] [address] [facility] [place], [place] [id number] [facility] Start: 04-17-2025 End: 04-17-2025 Patient encounter procedure 04/17/2025 9:00 AM EDT Routine [facility] [address] [place] [address] [facility] Start: 04-03-2025 End: 04-03-2025 Patient encounter procedure 04/03/2025 9:00 AM EDT Routine [facility] [address] [place] [address] [facility] Start: 03-18-2025 End: 03-18-2025 Patient encounter procedure 03/18/2025 8:00 AM EDT Appointment [facility] [place] [facility] [id number] [facility] [place] Start: 03-06-2025 End: 03-06-2025 Patient encounter procedure 03/06/2025 9:00 AM EDT Routine [facility] [place] [address] [place] [address] [facility] Start: 02-06-2025 End: 02-06-2026 Cytology report of Cervical or vaginal smear or scraping Cyto stain.thin prep Pap Smear Pathology and Cytology Routine Cervical smear, as part of routine gynecological examination Expected: 02/06/2025 (Approximate), Expires: 02/06/2026 [facility] Comment on above: Expected: 02/06/2025 (Approximate), Expires: 02/06/2026 Start: 02-06-2025 End: 02-06-2026 US MFM with or without consult US MFM with or without consult Imaging Routine Second trimester Expected: 02/06/2025, Expires: 02/06/2026 [employer] Work Phone: Comment on above: Expected: 02/06/2025 , Expires: 02/06/2026 Start: 01-23-2025 End: 01-23-2025 ambulatory 01/23/2025 1:30 PM EDT Initial [facility] [address] [place] [address] [facility] Start: 01-15-2025 End: 01-15-2026 US for in second or third trimester Ultrasound greater than 14 weeks single transabdominal Imaging Routine Second trimester Expected: 01/15/2025, Expires: 01/15/2026 [employer] Work Phone: Comment on above: Expected: 01/15/2025 , Expires: 01/15/2026 Start: 11-02-2024 Screening for Chlamy radha trachomatis Chlamydia Screening [facility] Start: 08-09-2024 End: 08-09-2024 Patient encounter procedure [facility] Comment on above: Arrived Start: 08-09-2024 End: 08-09-2025 US for US OB 14+ weeks anatomy scan Imaging Routine related condition in second trimester Expected: 08/09/2024, Expires: 08/09/2025 [facility] Work Phone: Comment on above: Expected: 08/09/2024 , Expires: 08/09/2025 Start: 07-15-2024 COVID-19 Vaccine ( season) COVID-19 Vaccine () [facility] Start: 07-15-2024 Influenza [facility] Start: 07-12-2024 End: 07-12-2024 Patient encounter procedure 07/12/2024 2:30 PM EDT Routine [facility] [address] [place] [address] Rylee Wood, CNM [address] [place], [place] [id number] Arrived [facility] Comment on above: Arrived Start: 2022 Screening for malign ant neoplasm of cervix Pap Smear [facility] Start: 2013 Depression Screening Depression [facility] End: 01-15-2026 Bacteria identified in Urine by Culture Urine Culture Microbiology Routine Second trimester 1 Occurrences starting 01/15/2025 until 01/15/2026 [facility] Comment on above: 1 Occurrences starti ng 01/15/2025 until 01/15/2026 End: 01-15-2026 CBC panel - Blood by Automated count CBC without diff Lab Routine Second trimester 1 Occurrences starting 01/15/2025 until 01/15/2026 [facility] Comment on above: 1 Occurrences starti ng 01/15/2025 until 01/15/2026 End: 04-03-2026 CBC panel - Blood by Automated count CBC without diff Lab Routine care, third trimester 1 Occurrences starting 04/03/2025 until 04/03/2026 [facility] Comment on above: 1 Occurrences starti ng 04/03/2025 until 04/03/2026 End: 05-28-2026 CBC W Auto Differential panel - Blood CBC auto differential Lab Routine Anemia complicating , third trimester 4 weeks for 3 Occurrences starting 05/28/2025 until 05/28/[address] [facility] Comment on above: 4 weeks for 3 Occurr ences starting 05/28/2025 until 05/28/2026 End: 02-06-2026 Chlamydia/Gonorrhoeae by PCR, Fluid Chlamydia/Gonorrhoeae by PCR, Fluid Microbiology Routine Second trimester 1 Occurrences starting 02/06/2025 until 02/06/[address] [facility] Comment on above: 1 Occurrences starti ng 02/06/2025 until 02/06/2026 Cyanocobalamin vitam in b-12 Vitamin B12 Lab Routine Anemia complicating , third trimester Ordered: 05/28/[address] [facility] Comment on above: Ordered: 05/28/2025 End: 01-15-2026 Drug Screen, Urine Drug Screen, Urine Lab Routine Second trimester 1 Occurrences starting 01/15/2025 until 01/15/[address] [facility] Comment on above: 1 Occurrences starti ng 01/15/2025 until 01/15/2026 End: 05-28-2026 Ferritin [Mass/volume] in Serum or Plasma Ferritin Lab Routine Anemia complicating , third trimester 4 weeks for 3 Occurrences starting 05/28/2025 until 05/28/[address] [facility] Comment on above: 4 weeks for 3 Occurr ences starting 05/28/2025 until 05/28/2026 Folate Folate Lab Routi ne Anemia complicating , third trimester Ordered: 05/28/2025 [employer] Work Phone: Comment on above: Ordered: 05/28/2025 End: 04-03-2026 Glucose 1h post 50g load Glucose 1h post 50g load Lab Routine care, third trimester 1 Occurrences starting 04/03/2025 until 04/03/[address] [facility] Comment on above: 1 Occurrences starti ng 04/03/2025 until 04/03/2026 End: 01-15-2026 HCG, Quantitative, HCG, Quantitative, Lab Routine Second trimester 1 Occurrences starting 01/15/2025 until 01/15/[address] [facility] Comment on above: 1 Occurrences starti ng 01/15/2025 until 01/15/2026 End: 01-15-2026 Hepatitis panel, acute Hepatitis panel, acute Lab Routine Second trimester 1 Occurrences starting 01/15/2025 until 01/15/2026 [facility] Comment on above: 1 Occurrences starti ng 01/15/2025 until 01/15/2026 End: 01-15-2026 HIV 1&2 AB/AG Screen (P24 AG) HIV 1&2 AB/AG Screen (P24 AG) Lab Routine Second trimester 1 Occurrences starting 01/15/2025 until 01/15/2026 [facility] Comment on above: 1 Occurrences starti ng 01/15/2025 until 01/15/2026 End: 05-28-2026 Iron and TIBC Iron and TIBC Lab Routine Anemia complicating , third trimester 4 weeks for 3 Occurrences starting 05/28/2025 until 05/28/2026 [facility] Comment on above: 4 weeks for 3 Occurr ences starting 05/28/2025 until 05/28/2026 End: 01-15-2026 Rubella IGG immune status Rubella IGG immune status Lab Routine Second trimester 1 Occurrences starting 01/15/2025 until 01/15/2026 [facility] Comment on above: 1 Occurrences starti ng 01/15/2025 until 01/15/2026 Strep B screen Strep B screen Microbiology Routine Third trimester 06/13/2025 2:26 PM EDT [employer] Work Phone: End: 01-15-2026 Syphilis Total(Unknown Syphilis Status) Syphilis Total(Unknown Syphilis Status) Lab Routine Second trimester 1 Occurrences starting 01/15/2025 until 01/15/2026 [facility] Comment on above: 1 Occurrences starti ng 01/15/2025 until 01/15/2026 End: 04-03-2026 Treponema pallidum IgG+IgM Ab [Presence] in Serum by Immunoassay Syphilis Total (Unknown Syphilis Status) Lab Routine care, third trimester 1 Occurrences starting 04/03/2025 until 04/03/2026 [facility] Comment on above: 1 Occurrences starti ng 04/03/2025 until 04/03/2026 End: 01-15-2026 Type and screen Type and screen Blood Bank Routine Second trimester 1 Occurrences starting 01/15/2025 until 01/15/2026 [facility] Comment on above: 1 Occurrences starti ng 01/15/2025 until 01/15/2026 End: 01-15-2026 Urinalysis Urinalysis Lab Routine Second trimester 1 Occurrences starting 01/15/2025 until 01/15/2026 [facility] Comment on above: 1 Occurrences starti ng 01/15/2025 until 01/15/2026 End: 02-06-2026 Vaginitis Panel PCR Vaginitis Panel PCR Microbiology Routine Vaginal odor Vaginal discharge 1 Occurrences starting 02/06/2025 until 02/06/2026 [facility] Comment on above: 1 Occurrences starti ng 02/06/2025 until 02/06/2026 End: 01-15-2026 Varicella zoster antibody, IgG Varicella zoster antibody, IgG Lab Routine Second trimester 1 Occurrences starting 01/15/2025 until 01/15/2026 [facility] Comment on above: 1 Occurrences starti ng 01/15/2025 until 01/15/2026 Immunizations Immunization Date Immunization Notes Care Provider Fa teresa 04-17-2025 tetanus toxoid, reduced diphtheria toxoid, and acellular pertussis vaccine, adsorbed [facility] 04-17-2025 Immunization, In Clinic,; Translations: [Drug or medicament (substance)] [facility] 09-29-2009 influenza virus vaccine, unspecified formulation Nicolasa Pierre SUPERVISOR [employer] Work Phone: [facility] NEGATED: Highlighted row has not occurred!07-04-2025 varicella virus vaccine Rosie Nilam SUPERVISOR [employer] Work Phone: [facility] Payers Date Payer Category Payer Medicaid [id number] 2022 [employer] ( and others) FOR LIFE [id number] 2022-Present [address] [place] [address] [id number] 2022 () [facility] [id number] 2022 Department of [facility] ( and others) [id number] 2022 Private Health Insurance [facility] [id number] 2016 Unknown [id number] 2001 Unknown [id number] 2.16.840.1.160580.3.579.2. 593 2001 Unknown [id number] 2.16.840.1.905109.3.579.2. 1258 2001 Unknown [id number] 2.16.840.1.755575.3.579.2. 1258 2001 Unknown [id number] 2.16.840.1.713891.3.579.2. 1258 2001 Unknown [id number] 2.16.840.1.189765.3.579.2. 1258 2001 Unknown [id number] 2.16.840.1.021550.3.579.2. 1258 2001 Unknown [id number] 2.16.840.1.153734.3.579.2. 1258 2001 Unknown [id number] 2.16.840.1.051685.3.579.2. 1258 2001 Unknown [id number] 2.16.840.1.025244.3.579.2. 1258 2001 Unknown [id number] 2.16.840.1.907250.3.579.2. 1285 2001 Unknown [id number] 2.16840.1.340541.3.579.2. 1285 2001 Unknown [id number] 2.16840.1.669042.3.579.2. 1285 2001 Unknown [id number] 2.16840.1.767237.3.579.2. 1285 2001 Unknown [id number] 2.16840.1.434958.3.579.2. 1285 2001 Unknown [id number] 2.16840.1.142950.3.579.2. 1285 2001 Unknown [id number] 2.16840.1.966202.3.579.2. 1285 2001 Unknown [id number] 2.16840.1.023680.3.579.2. 1285 2001 Unknown [id number] 2.16840.1.003747.3.579.2. 1285 2001 Unknown [id number] 2.16840.1.491785.3.579.2. 1285 2001 Unknown [id number] 2.16840.1.290304.3.579.2. 1285 2001 Unknown [id number] 2.16840.1.539374.3.579.2. 1285 2001 Unknown [id number] 2.16840.1.701742.3.579.2. 1285 2001 Unknown [id number] 2.16840.1.811533.3.579.2. 1285 2001 Unknown [id number] 2.16840.1.290836.3.579.2. 1285 2001 Unknown [id number] 2.16840.1.994671.3.579.2. 1285 2001 Unknown [id number] 2.16840.1.250872.3.579.2. 1285 2001 Unknown [id number] 2.16.840.1.111032.3.579.2. 1285 2001 Unknown [id number] 2.16840.1.314282.3.579.2. 1285 2001 Unknown [id number] 2.16840.1.369783.3.579.2. 1285 2001 Unknown [id number] 2.16840.1.402978.3.579.2. 1285 2001 Unknown [id number] 2.16840.1.920347.3.579.2. 1285 2001 Unknown [id number] 2.0.1.966865.3.579.2. 1285 2001 Unknown [id number] 2.840.1.948663.3.579.2. 1285 2001 Unknown [id number] 2.840.1.943715.3.579.2. 1285 2001 Unknown [id number] 2.16840.1.511410.3.579.2. 1285 2001 Unknown [id number] 2.840.1.298662.3.579.2. 1285 2001 Unknown [id number] 2.16840.1.774883.3.579.2. 1285 2001 Unknown [id number] 2.16840.1.562377.3.579.2. 1285 2001 Unknown [id number] 2.16840.1.584807.3.579.2. 1285 2001 Unknown [id number] 2.16840.1.018010.3.579.2. 1285 2001 Unknown [id number] 2.16.840.1.794136.3.579.2. 1286 2001 Unknown [id number] 2.16.840.1.355487.3.579.2. 1286 2001 Unknown [id number] 2.16.840.1.123249.3.579.2. 1286 2001 Unknown [id number] 2.16.840.1.062235.3.579.2. 1286 2001 Unknown [id number] 2.16.840.1.707672.3.579.2. 1286 2001 Unknown [id number] 2.16.840.1.896144.3.579.2. 1286 1959 [employer] ( and others) [id number] Unknown Social History Date Type Detail Facility Start: 11-02-2023 End: 02-09-2024 Tobacco smoking status DCIS Never smoked tobacco [facility] Start: 02-09-2024 End: 03-06-2025 Tobacco use and exposure Smokeless tobacco non-user [facility] Start: 06-18-2024 Alcoholic beverage intake Current drinker of alcohol (finding) [facility] Start: 02-09-2024 End: 07-01-2025 History of Social function [facility] Start: 02-09-2024 End: 07-01-2025 Alcohol Use Disorder Identification Test - Consumption [AUDIT-C] [facility] How often to you hav e a drink containing alcohol? 2-4 times a month [facility] How many standard dr inks containing alcohol do you have on a typical day? 5 or 6 [facility] Frequency of Binge Drinking Not on file [facility] Start: 05-10-2024 [facility] Start: 2001 Sex assigned at Not on file [facility] Start: 01-26-2023 Gender identity Identifies as female gender (finding) [facility] Start: 01-15-2025 End: 06-20-2025 Alcoholic beverage intake Ex-drinker (finding) [facility] Start: 11-02-2023 Alcohol Comment socially [facility] Start: 06-19-2015 Sex Female (finding) [facility] Start: 03-06-2025 Tobacco smoking status NHIS Ex-smoker [facility] History of tobacco use Current smoker [facility] History of tobacco use Tobacco U se Types Packs/Day Years Used Date Smoking Tobacco: Former Vaping/E-cigarettes Smokeless Tobacco: Never [facility] Has the [employer], or [employer] threatened to shut off services in your home in past 12Mo No [facility] Are you now , , , , never or living with a partner? Never [facility] Do you feel stress - tense, restless, nervous, or anxious, or unable to sleep at night because your mind is troubled all the time - these days [OSQ] Only a little [facility] Functional Status Date Assessment Result Facility [facility] Clinical Notes 06-18-2024 to 08-14-2025 Nicolasa Pierre, [facility] - 08/14/2025 1:00 PM Edgar Toure, SUPERVISOR [facility] - 07/17/2025 1:00 PM EDTPatient InstructionsPlan of Care - Elana Davis RN - 07/04/2025 11:15 AM EDTAttachments Note Date & Type Note Facility 08-14-2025 History of Present illness Narrative visit Subjective: Corinne Esparza is a 25 [...] up. EDPS: 7. She denies suicidal / homicidal ideations. She has been to a therapist in [...] past medical history, past social history, past surgical history and problem list. Review of Systems Pertinent items are noted in HPI. Objective: BP 100/62 Ht 170.2 cm (5' 7 ) Wt 60.3 kg (133 lb) LMP 09/30/2024 Yes BMI 20.83 kg/m General: alert, appears stated age and cooperative [...] due 2027. 7. 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 LULU Youssef APRN-CNP 08/14/25 1329 documented in this encounter [facility] 07-17-2025 History of Present illness Narrative Visit Subjective: Corinne Esparza is a 25 y.o. female who presents for a visit. She is 2 weeks following a spontaneous vaginal delivery. Pain is well controlled with current medications. The patient feels tired. She is having anxiety. She is finding herself getting up to check that the door is locked several times, checking her phone frequently/worried about missing a call about her preschooler, overall feeling on high alert. Pt relates she was prescribed Zoloft in the past for anxiety and took it for 2 days before stopping it due to the anxiety of starting a new medication. She denies feeling sad or depressed. depression screening: negative. EPDS score = 8. Patient has not yet resumed sexual activity. Patient desires unsure for contraception. Bleeding thin lochia, brown, pink, and red. Bowel function is painful due to hemorrhoids. Bladder function is normal. The patient reports that there is not domestic violence in her life. BABY Baby is a male. Baby's name is Myron. Baby is feeding by breast. is going well. The following portions of the patient's history were reviewed and updated as appropriate: allergies, current medications, past family history, past medical history, past social history, past surgical history, problem list, and medication reconciliation was completed including current medication and post discharge medication. Review of Systems 10 or more systems reviewed and all negative except stated in hpi. Objective: BP 110/60 Ht 170.2 cm (5' 7 ) Wt 61.7 kg (136 lb) LMP 09/30/2024 Yes BMI 21.30 kg/m Physical Exam Vitals and nursing note reviewed. Constitutional: General: She is not in acute distress. Appearance: Normal appearance. She is not ill-appearing. HENT: Head: Normocephalic and atraumatic. Nose: No rhinorrhea. Eyes: Extraocular Movements: Extraocular movements intact. Cardiovascular: Rate and Rhythm: Normal rate and regular rhythm. Heart sounds: Normal heart sounds. Pulmonary: Effort: Pulmonary effort is normal. No respiratory distress. Abdominal: Palpations: Abdomen is soft. Tenderness: There is no abdominal tenderness. Musculoskeletal: General: Normal range of motion. Cervical back: Normal range of motion. Right lower leg: No edema. Left lower leg: No edema. Skin: General: Skin is warm and dry. Neurological: General: No focal deficit present. Mental Status: She is alert. Psychiatric: Mood and Affect: Mood normal. Behavior: Behavior normal. Thought Content: Thought content normal. Judgment: Judgment normal. Comments: Darke and attentive with infant Assessment/Plan: 1. care following vaginal delivery (Primary) 2. Anemia in , third trimester H/H 12.1/35.4 (07/03/25) 3. Lactating mother 4. Hemorrhoids, unspecified hemorrhoid type Pt has tucks pads and hydrocortisone cream at home - polyethylene glycol (GLYCOLAX) 17 gram/dose powder; Take 17 g by mouth in the morning. Dispense: 510 g; Refill: 3 5. anxiety Discussed treatment of PP anxiety with SSRIs. Educated pt that it may take 2 weeks to notice an improvement in symptoms and up to 6 weeks for the full effect. Discussed starting at a lower dose and increasing as needed. Reviewed common side effects including nausea, sleepiness, insomnia, and sexual dysfunction. Many of these side effects improve with continued use. Discussed the possibility of worsening symptoms or SI in adolescents and young adults when starting SSRIs. Encouraged patient to monitor her mood closely. If she experiences any thoughts of harming herself or others, she is advised to call 911 or go to ER immediately. We discussed counseling and pt declined. - sertraline (ZOLOFT) 25 mg tablet; Take 1 tablet (25 mg total) by mouth in the morning. Dispense: 30 tablet; Refill: 0 Due to pt's previous anxiety about starting a new medication, can start at one half tablet daily (12.5 mg) for two weeks and then increase to one tablet daily (25 mg). Discussed taking the medication at night. Continue pelvic rest Discussed warning sign, s/s mastitis RTO 4 weeks for follow up and med check, sooner if needed LULU Ortiz 07/17/25 1513 documented in this encounter [facility] 07-17-2025 Instructions LULU Ortiz - 07/17/2025 1:00 PM EDT [facility] ( ) documented in this encounter [facility] 07-04-2025 Plan of care note Problem: Pain Goal: Patient goal is pain score less than 4, able to rest, and participant in treatment plan as appropriate Description: INTERVENTIONS: 1. Encourage patient or legal housing management representative to report early pain and ask for pain medicine when needed 2. Assess pain using appropriate pain scale and include the scale used when documenting 3. Administer analgesics based on type and severity of pain and evaluate response within appropriate time frame 4. Implement non-pharmacological measures as appropriate and evaluate response 5. Consider cultural and social influences on pain and pain management 6. Notify LIP if interventions ineffective or patient reports new pain 7. Monitor vital signs including pulse ox, end-tidal CO2 based on pain intervention 8. Reassess pain per policy 9. Teach patient or legal housing management representative interventions for comforting Outcome: Progressing Note: Evaluation of progress towards goal: Pt able to report pain according to 0/10 pain scale. Medicating patient for pain per orders. Pt encouraged to report early pain, analgesics administered as needed, hourly rounding completed and pain assessed. Problem: Safety Goal: Patient will be injury free during hospitalization Description: INTERVENTIONS: 1. Assess patient's risk for falls and implement fall prevention plan of care per policy 2. Provide and maintain a safe environment 3. Proper use of double Identifiers 4. Medication administration using the 5 rights 5. Hand hygiene 6. Specimens are labeled at the bedside 7. Instruct patient/ patient housing management representative about use of safety devices 8. Include patient/ patient housing management representative in decisions related to safety Outcome: Progressing Note: Evaluation of progress towards goal: Safety measures initiated/maintained. Pt remains safe from harm/injury/falls. Pt's risk for falls assessed and fall prevention implemented as needed, safe environment provided and maintained, hand hygiene completed. Call light within reach/ hourly rounding to meet needs/ safety equipment used as needed/up with assistance when needed. Problem: Infection Goal: Absence of infection during hospitalization Description: INTERVENTIONS 1. Assess and monitor for signs and symptoms of infection. 2. Monitor lab/diagnostic results. 3. Monitor all insertion sites i.e., indwelling lines, tubes and drains. 4. Monitor endotracheal (as able) and nasal secretions for changes in amount and color. 5. Administer medications as ordered. 6. Instruct and encourage patient and family to use good hand hygiene technique. 7. Identify and instruct patient/patient housing management representative in use of appropriate isolation precautions for identified infection/symptoms. 8. Provide and discuss with patient/patient housing management representative on educational MDRO sheet. 9. Encourage and monitor nutritional status daily and consult furnishings conservator if indicated. 10. Implement neutropenic guidelines as needed. Outcome: Progressing Note: Evaluation of progress towards goal: Patient afebrile at this time, patient VS WNL. Pt assessed and monitored for signs and symptoms of infection, lab and diagnostic results monitored as needed, administer medications as needed. Hand hygiene completed. Continue to monitor. Problem: Knowledge Deficit Goal: Patient/patient housing management representative demonstrates understanding of disease process, treatment plan, medications, and discharge instructions Description: INTERVENTIONS 1. Complete learning assessment and assess knowledge base 2. Provide teaching at level of understanding 3. Provide teaching via preferred learning method(s) Outcome: Progressing Note: Evaluation of progress towards goal: Pt learning and knowledge base assessed, teaching provided at an understandable level as needed, teaching provided via preferred learning method. POC discussed with patient, questions answered PRN. Problem: Discharge Planning Goal: Discharge to post-acute care, other facility, or home with appropriate resources Description: Patient's goal is: INTERVENTIONS 1. Conduct assessment to determine patient/family and health care team treatment goals, and need for post-acute services based on payer coverage, community resources, and patient preferences, and barriers to discharge 2. Coordinate with Social work, Care Navigation, and Utilization Review to arrange appropriate level of services according to patient's needs based on patient preference and payer coverage in collaboration with the physician and health care team 3. Address psychosocial, clinical, and financial barriers to discharge as identified in assessment in conjunction with the patient/family and health care team 4. Consult appropriate ancillary services (i.e.. PT/OT/ST, etc) as needed 5. Communicate with and update the patient/family, physician, and health care team regarding progress on the discharge plan 6. Identify discharge learning needs (meds, wound care, etc). 7. Arrange for needed discharge transportation as appropriate Outcome: Progressing Note: Evaluation of progress towards goal: Pt discharge initiated with attending provider, Pt/Family communicated with and updated regarding process on discharge as needed. Reviewed discharge plan and questions answered. Additional Comments: [facility] 07-04-2025 Miscellaneous Notes Problem: Pain Goal: Patient goal is pain score less than 4, able to rest, and participant in treatment plan as appropriate Description: INTERVENTIONS: 1. Encourage patient or legal housing management representative to report early pain and ask for pain medicine when needed 2. Assess pain using appropriate pain scale and include the scale used when documenting 3. Administer analgesics based on type and severity of pain and evaluate response within appropriate time frame 4. Implement non-pharmacological measures as appropriate and evaluate response 5. Consider cultural and social influences on pain and pain management 6. Notify LIP if interventions ineffective or patient reports new pain 7. Monitor vital signs including pulse ox, end-tidal CO2 based on pain intervention 8. Reassess pain per policy 9. Teach patient or legal housing management representative interventions for comforting Outcome: Progressing Note: Evaluation of progress towards goal: Pt able to report pain according to 0/10 pain scale. Medicating patient for pain per orders. Pt encouraged to report early pain, analgesics administered as needed, hourly rounding completed and pain assessed. Problem: Safety Goal: Patient will be injury free during hospitalization Description: INTERVENTIONS: 1. Assess patient's risk for falls and implement fall prevention plan of care per policy 2. Provide and maintain a safe environment 3. Proper use of double Identifiers 4. Medication administration using the 5 rights 5. Hand hygiene 6. Specimens are labeled at the bedside 7. Instruct patient/ patient housing management representative about use of safety devices 8. Include patient/ patient housing management representative in decisions related to safety Outcome: Progressing Note: Evaluation of progress towards goal: Safety measures initiated/maintained. Pt remains safe from harm/injury/falls. Pt's risk for falls assessed and fall prevention implemented as needed, safe environment provided and maintained, hand hygiene completed. Call light within reach/ hourly rounding to meet needs/ safety equipment used as needed/up with assistance when needed. Problem: Infection Goal: Absence of infection during hospitalization Description: INTERVENTIONS 1. Assess and monitor for signs and symptoms of infection. 2. Monitor lab/diagnostic results. 3. Monitor all insertion sites i.e., indwelling lines, tubes and drains. 4. Monitor endotracheal (as able) and nasal secretions for changes in amount and color. 5. Administer medications as ordered. 6. Instruct and encourage patient and family to use good hand hygiene technique. 7. Identify and instruct patient/patient housing management representative in use of appropriate isolation precautions for identified infection/symptoms. 8. Provide and discuss with patient/patient housing management representative on educational MDRO sheet. 9. Encourage and monitor nutritional status daily and consult furnishings conservator if indicated. 10. Implement neutropenic guidelines as needed. Outcome: Progressing Note: Evaluation of progress towards goal: Patient afebrile at this time, patient VS WNL. Pt assessed and monitored for signs and symptoms of infection, lab and diagnostic results monitored as needed, administer medications as needed. Hand hygiene completed. Continue to monitor. Problem: Knowledge Deficit Goal: Patient/patient housing management representative demonstrates understanding of disease process, treatment plan, medications, and discharge instructions Description: INTERVENTIONS 1. Complete learning assessment and assess knowledge base 2. Provide teaching at level of understanding 3. Provide teaching via preferred learning method(s) Outcome: Progressing Note: Evaluation of progress towards goal: Pt learning and knowledge base assessed, teaching provided at an understandable level as needed, teaching provided via preferred learning method. POC discussed with patient, questions answered PRN. Problem: Discharge Planning Goal: Discharge to post-acute care, other facility, or home with appropriate resources Description: Patient's goal is: INTERVENTIONS 1. Conduct assessment to determine patient/family and health care team treatment goals, and need for post-acute services based on payer coverage, community resources, and patient preferences, and barriers to discharge 2. Coordinate with Social work, Care Navigation, and Utilization Review to arrange appropriate level of services according to patient's needs based on patient preference and payer coverage in collaboration with the physician and health care team 3. Address psychosocial, clinical, and financial barriers to discharge as identified in assessment in conjunction with the patient/family and health care team 4. Consult appropriate ancillary services (i.e.. PT/OT/ST, etc) as needed 5. Communicate with and update the patient/family, physician, and health care team regarding progress on the discharge plan 6. Identify discharge learning needs (meds, wound care, etc). 7. Arrange for needed discharge transportation as appropriate Outcome: Progressing Note: Evaluation of progress towards goal: Pt discharge initiated with attending provider, Pt/Family communicated with and updated regarding process on discharge as needed. Reviewed discharge plan and questions answered. Additional Comments: Problem: Pain Goal: Patient goal is pain score less than 4, able to rest, and participant in treatment plan as appropriate Description: INTERVENTIONS: 1. Encourage patient or legal housing management representative to report early pain and ask for pain medicine when needed 2. Assess pain using appropriate pain scale and include the scale used when documenting 3. Administer analgesics based on type and severity of pain and evaluate response within appropriate time frame 4. Implement non-pharmacological measures as appropriate and evaluate response 5. Consider cultural and social influences on pain and pain management 6. Notify LIP if interventions ineffective or patient reports new pain 7. Monitor vital signs including pulse ox, end-tidal CO2 based on pain intervention 8. Reassess pain per policy 9. Teach patient or legal housing management representative interventions for comforting Outcome: Progressing Note: Evaluation of progress towards goal: Pt able to report pain according to 0/10 pain scale. Medicating patient for pain per orders. Pt encouraged to report early pain, analgesics administered as needed, hourly rounding completed and pain assessed. Problem: Safety Goal: Patient will be injury free during hospitalization Description: INTERVENTIONS: 1. Assess patient's risk for falls and implement fall prevention plan of care per policy 2. Provide and maintain a safe environment 3. Proper use of double Identifiers 4. Medication administration using the 5 rights 5. Hand hygiene 6. Specimens are labeled at the bedside 7. Instruct patient/ patient housing management representative about use of safety devices 8. Include patient/ patient housing management representative in decisions related to safety Outcome: Progressing Note: Evaluation of progress towards goal: Safety measures initiated/maintained. Pt remains safe from harm/injury/falls. Pt's risk for falls assessed and fall prevention implemented as needed, safe environment provided and maintained, hand hygiene completed. Call light within reach/ hourly rounding to meet needs/ safety equipment used as needed/up with assistance when needed. Problem: Infection Goal: Absence of infection during hospitalization Description: INTERVENTIONS 1. Assess and monitor for signs and symptoms of infection. 2. Monitor lab/diagnostic results. 3. Monitor all insertion sites i.e., indwelling lines, tubes and drains. 4. Monitor endotracheal (as able) and nasal secretions for changes in amount and color. 5. Administer medications as ordered. 6. Instruct and encourage patient and family to use good hand hygiene technique. 7. Identify and instruct patient/patient housing management representative in use of appropriate isolation precautions for identified infection/symptoms. 8. Provide and discuss with patient/patient housing management representative on educational MDRO sheet. 9. Encourage and monitor nutritional status daily and consult furnishings conservator if indicated. 10. Implement neutropenic guidelines as needed. Outcome: Progressing Note: Evaluation of progress towards goal: Patient afebrile at this time, patient VS WNL. Pt assessed and monitored for signs and symptoms of infection, lab and diagnostic results monitored as needed, administer medications as needed. Hand hygiene completed. Continue to monitor. Problem: Knowledge Deficit Goal: Patient/patient housing management representative demonstrates understanding of disease process, treatment plan, medications, and discharge instructions Description: INTERVENTIONS 1. Complete learning assessment and assess knowledge base 2. Provide teaching at level of understanding 3. Provide teaching via preferred learning method(s) Outcome: Progressing Note: Evaluation of progress towards goal: Pt learning and knowledge base assessed, teaching provided at an understandable level as needed, teaching provided via preferred learning method. POC discussed with patient, questions answered PRN. Problem: Discharge Planning Goal: Discharge to post-acute care, other facility, or home with appropriate resources Description: Patient's goal is: INTERVENTIONS 1. Conduct assessment to determine patient/family and health care team treatment goals, and need for post-acute services based on payer coverage, community resources, and patient preferences, and barriers to discharge 2. Coordinate with Social work, Care Navigation, and Utilization Review to arrange appropriate level of services according to patient's needs based on patient preference and payer coverage in collaboration with the physician and health care team 3. Address psychosocial, clinical, and financial barriers to discharge as identified in assessment in conjunction with the patient/family and health care team 4. Consult appropriate ancillary services (i.e.. PT/OT/ST, etc) as needed 5. Communicate with and update the patient/family, physician, and health care team regarding progress on the discharge plan 6. Identify discharge learning needs (meds, wound care, etc). 7. Arrange for needed discharge transportation as appropriate Outcome: Progressing Note: Evaluation of progress towards goal: Pt discharge initiated with attending provider, Pt/Family communicated with and updated regarding process on discharge as needed. Reviewed discharge plan and questions answered Additional Comments: Problem: Pain Goal: Patient goal is pain score less than 4, able to rest, and participant in treatment plan as appropriate Description: INTERVENTIONS: 1. Encourage patient or legal housing management representative to report early pain and ask for pain medicine when needed 2. Assess pain using appropriate pain scale and include the scale used when documenting 3. Administer analgesics based on type and severity of pain and evaluate response within appropriate time frame 4. Implement non-pharmacological measures as appropriate and evaluate response 5. Consider cultural and social influences on pain and pain management 6. Notify LIP if interventions ineffective or patient reports new pain 7. Monitor vital signs including pulse ox, end-tidal CO2 based on pain intervention 8. Reassess pain per policy 9. Teach patient or legal housing management representative interventions for comforting Outcome: Progressing Note: Evaluation of progress towards goal: Pt able to report pain according to 0/10 pain scale. Medicating patient for pain per orders. Pt encouraged to report early pain, analgesics administered as needed, hourly rounding completed and pain assessed.Pt able to report pain according to 0/10 pain scale. Medicating patient for pain per orders. Pt encouraged to report early pain, analgesics administered as needed, hourly rounding completed and pain assessed. Problem: Safety Goal: Patient will be injury free during hospitalization Description: INTERVENTIONS: 1. Assess patient's risk for falls and implement fall prevention plan of care per policy 2. Provide and maintain a safe environment 3. Proper use of double Identifiers 4. Medication administration using the 5 rights 5. Hand hygiene 6. Specimens are labeled at the bedside 7. Instruct patient/ patient housing management representative about use of safety devices 8. Include patient/ patient housing management representative in decisions related to safety Outcome: Progressing Note: Evaluation of progress towards goal: Safety measures initiated/maintained. Pt remains safe from harm/injury/falls. Pt's risk for falls assessed and fall prevention implemented as needed, safe environment provided and maintained, hand hygiene completed. Call light within reach/ hourly rounding to meet needs/ safety equipment used as needed/up with assistance when needed. Problem: Infection Goal: Absence of infection during hospitalization Description: INTERVENTIONS 1. Assess and monitor for signs and symptoms of infection. 2. Monitor lab/diagnostic results. 3. Monitor all insertion sites i.e., indwelling lines, tubes and drains. 4. Monitor endotracheal (as able) and nasal secretions for changes in amount and color. 5. Administer medications as ordered. 6. Instruct and encourage patient and family to use good hand hygiene technique. 7. Identify and instruct patient/patient housing management representative in use of appropriate isolation precautions for identified infection/symptoms. 8. Provide and discuss with patient/patient housing management representative on educational MDRO sheet. 9. Encourage and monitor nutritional status daily and consult furnishings conservator if indicated. 10. Implement neutropenic guidelines as needed. Outcome: Progressing Note: Evaluation of progress towards goal: Patient afebrile at this time, patient VS WNL. Pt assessed and monitored for signs and symptoms of infection, lab and diagnostic results monitored as needed, administer medications as needed. Hand hygiene completed. Continue to monitor. Problem: Knowledge Deficit Goal: Patient/patient housing management representative demonstrates understanding of disease process, treatment plan, medications, and discharge instructions Description: INTERVENTIONS 1. Complete learning assessment and assess knowledge base 2. Provide teaching at level of understanding 3. Provide teaching via preferred learning method(s) Outcome: Progressing Note: Evaluation of progress towards goal: Pt learning and knowledge base assessed, teaching provided at an understandable level as needed, teaching provided via preferred learning method. POC discussed with patient, questions answered PRN. Problem: Discharge Planning Goal: Discharge to post-acute care, other facility, or home with appropriate resources Description: Patient's goal is: INTERVENTIONS 1. Conduct assessment to determine patient/family and health care team treatment goals, and need for post-acute services based on payer coverage, community resources, and patient preferences, and barriers to discharge 2. Coordinate with Social work, Care Navigation, and Utilization Review to arrange appropriate level of services according to patient's needs based on patient preference and payer coverage in collaboration with the physician and health care team 3. Address psychosocial, clinical, and financial barriers to discharge as identified in assessment in conjunction with the patient/family and health care team 4. Consult appropriate ancillary services (i.e.. PT/OT/ST, etc) as needed 5. Communicate with and update the patient/family, physician, and health care team regarding progress on the discharge plan 6. Identify discharge learning needs (meds, wound care, etc). 7. Arrange for needed discharge transportation as appropriate Outcome: Progressing Note: Evaluation of progress towards goal: DISCHARGE PLANNING IS IN PROCESS. Additional Comments: Delivery Record Patient Observations (Last 24 hours) None Patient Observations (Last 24 hours) None Isaias, Pending [[id number]] Events of Labor labor?: No steroids?: None Cervical ripening date/time: Antibiotics received during labor?: No Rupture date/time: 07/03/25 12:06 Rupture type: Artificial, Intact Fluid color: Clear Fluid odor: Yes, No Labor Event Times Labor onset date/time: 07/03/25 10:26 Dilation complete date/time: 07/03/25 12:00 EDT Start pushing date/time: 07/03/2025 12:07 Anesthesia Method: Epidural Anesthesia provided by: denita arambula Assisted Delivery Forceps attempted?: No Vacuum extractor attempted?: No Document Additional Attempt Document Additional Attempt Shoulder Dystocia Shoulder dystocial present?: No Second Maneuver Third Maneuver Fourth Maneuver Fifth Maneuver Sixth Maneuver Seventh Maneuver Eighth Maneuver \Ninth Maneuver Presentation No data filed [place] Information Delivery date/time: 07/03/25 12:11 Delivery type: Vaginal, Spontaneous details: Delivery Providers Delivering clinician: Rachel Rivera DO Provider Role Leah Batres, die turner Nurse Delivery Assist Romeo Do RN [place] Nurse Cord Information Vessels: 3 vessels Complications: Nuchal Nuchal cord description: loose nuchal cord Number of loops: 1 Delayed cord clamping?: Yes Cord clamped date/time: 07/03/2025 12:12 PM Cord blood obtained?: Yes Cord blood disposition: Lab Gases sent?: No Stem cell collection (by )?: No Placenta Date/time: 07/03/2025 12:15 Removal: Spontaneous Appearance: Intact Disposition: discarded hemorrhage: No Resuscitation Method: Tactile stimulation Resuscitation needed: No Additional resources called: No Assessment Living status: Living Skin color: Heart rate: Reflex irritability: Muscle tone: Respiratory effort: Total: 1 Minute: 0 2 2 2 2 8 1 total from OB History 5 Minute: 1 2 2 2 2 9 5 total from OB History 10 Minute: 15 Minute: 20 Minute: Apgars assigned by: ROMEO DO Skin to Skin No data filed Measurements No data filed Lacerations/EBL Surgical or additional est. blood loss (mL): 0 Combined est. blood loss (mL): 0 Other Delivery Procedures No data filed documented in this encounter [facility] 07-04-2025 Hospital Discharge instructions Genevieve Lui APRN-CNM - 07/04/2025 9:34 AM EDT Discharge Instructions Vaginal Bleeding Vaginal drainage, lochia , will last 4-6 weeks after your baby was born. It may stop and then restart. Use the cherri bottle filled with warm water each time you use the bathroom, pat dry. Continue this until your drainage stops. Always wipe from front to back after you urinate or have a bowel movement Change your sanitary pad every 2-4 hours Notify your doctor/CNM if you experience any of the following: Clots larger than a plum If you are saturating a cherri pad greater than one pad an hour Any foul smelling vaginal drainage Abdominal Cramping Cramping gets stronger with each baby. You may try a heating pad and take medications. Bathing/Showering Take a shower each day To help with episiotomy discomfort you may sit in a clean tub of warm water without soaps/bubbles. Stitches in your perineum will dissolve over 6 weeks, for comfort you may: Use a sitz bath Cherri bottle Dermoplast (use each time after cherri care) Tucks (use each time after cherri care) Tucks and Dermoplast spray may also help with hemorrhoid discomfort (use each time after cherri care) Sexual [place] No tampons, douching, or sexual intercourse until after you see your provider You may need to use a water-soluble lubricant such as [place] Jelly for dryness Talk to your doctor/CNM regarding control and which method would be best for you Talk to your doctor/CNM regarding the use of a long acting, but reversible, control method as they are more effective and have less side effects It is recommended to space pregnancies apart by at least 18 months for the safety of future outcomes Notify your doctor if you have: Any vaginal burning or itching Any burning or pain when urinating, or inability to urinate A temperature greater than 100.4 degrees Fahrenheit or severe chills Severe pain in calf or leg Nausea or vomiting, dizziness or fainting If you have not had a bowel movement in 5 days Diet: Drink 8-12 glasses of water each day Make sure you eat a balanced diet, especially high in fiber (whole grains, raw vegetables, etc.) If drink 8 oz. of liquid every time you nurse your baby Continue to take your vitamins as prescribed by your doctor Abdominal Incision / Tubal Ligation Care: Wash your incision with soap and water and be sure to rinse and dry well The sutures will dissolve on their own and steri strips will fall off( if applied to incision) For ease of movement hold a pillow against the incision: When you get up from a lying or sitting position When you laugh or cough Notify your doctor/CNM for any of the following: Redness Drainage Open areas around your incision Breast Care: To help with discomfort: Feed your baby frequently to avoid engorgement Apply warm compresses to breast before feeding Apply cold compresses to breast after feeding Wear a supportive nursing bra 24 hours a day Do not put soap on your nipples Allow nipples to air dry after feeding Bottle feeding: To help with discomfort: Use cold compresses Wear a tight fitting bra 24 hours a day Notify your doctor/CNM: For swelling, redness, or tenderness in one area of your breast Blues / Depression: Blues : Usually occurs within 3-5 days after delivery Normally goes away on its own Depression: Can also occur within days of delivery, or within a year Warning Signs: Increased crying for no obvious reason Lack of patience Being irritable Being restless Not being able to sleep Not wanting to eat Anxiety Notify your doctor/CNM: If you experience any of the warning signs If you are having any violent thoughts If you are having thoughts of harming yourself or your baby Sibling / Family Adjustment: Each family member will take different amounts of time to adjust to the new baby Be patient and offer lots of love and comfort Offer some individual attention to other children Exercise / Activity: Get plenty of rest Take naps while baby is sleeping during the day No heavy cleaning or other housework for the first couple of weeks Lift nothing heavier than your baby for 2 weeks No driving for one week Do not drive while taking narcotics You may start walking and stretching in 2 weeks No strenuous exercises like jogging, aerobics, etc. until after you have seen your doctor/CNM You may start Kegel exercises now The following attachments cannot be sent through Care Everywhere.Depression during and after Discharge instructions (Cymraes)Vaginal Discharge instructions (Cymraes) (Cymraes)Common problems (Cymraes)documented in this encounter [facility] 07-04-2025 Hospital course Narrative Inpatient Discharge Summary BRIEF OVERVIEW Admission Date: 07/03/2025 Discharge Date: 07/04/25 Diagnoses: OB History 4 Para 2 Term 2 0 AB 2 Living 2 SAB 1 IAB 1 Ectopic 0 Multiple 0 Live Births 2 Patient Active Problem List Diagnosis Late care History of induced History of miscarriage Back pain in Anemia in , third trimester Pelvic pressure in , third trimester 39 weeks gestation of Benign gestational thrombocytopenia in third trimester Term Procedure: spontaneous vaginal delivery Discharge Condition: Stable Activity: activity as tolerated and no driving for today, no lifting or Strenuous exercise for 6 weeks, no sex for 6 weeks and no heavy lifting for 6 weeks Diet: regular diet Wound Care: keep wound clean and dry and as directed Data Information for the patient's : Sera Esparza [[id number]] male 3.21 kg Discharge with mother Discharge Diagnosis vaginal delivery Discharge Information/Patient Instructions: Medication List START taking these medications Instructions Last Dose Given Next Dose Due acetaminophen 325 mg tablet Commonly known as: TYLENOL Take 3 tablets (975 mg total) by mouth every 8 (eight) hours as needed for pain. ibuprofen 800 mg tablet Commonly known as: MOTRIN Take 1 tablet (800 mg total) by mouth every 8 (eight) hours as needed (cramping). CONTINUE taking these medications Instructions Last Dose Given Next Dose Due VITAMIN ORAL Take by mouth. STOP taking these medications ferrous sulfate 325 (65 FE) MG tablet Where to Get Your Medications These medications were sent to [id number] - [place], [place] - [address] [place] [address] acetaminophen 325 mg tablet ibuprofen 800 mg tablet Discharge Disposition: Home or Self Care (ROUTINE DISCHARGE) Outpatient Follow-Up: 2 weeks in office Prescriptions: Motrin and Tylenol Comments: Home care, Follow-up care and control were reviewed. Signs and symptoms of mastitis, Pre-E, DVT/PE, PPH, endometritis and PPD/psychosis were reviewed. The patient is to notify her provider if any of these occur. The patient was counseled on secondary smoke risks and the increased risk of sudden syndrome and respiratory problems to her baby with exposure. She was counseled on various alternate recommendations to decrease the exposure to secondary smoke to her children. - CATRINA Tolliver 07/04/25 9:33 AM CATRINA Tolliver 07/04/25 1678 documented in this encounter [facility] 07-04-2025 History of Present illness Narrative Post Vaginal Delivery - Day 1 SUBJECTIVE: Corinne Esparza is a 25 y.o. who delivered via on 07/03/2025 at 39w3d. She reports that she is feeling well today. She has been ambulating without dizziness or SOB. She reports that her bleeding is slowing. She reports mild cramping when breast feeding. She is taking Ibuprofen regularly. She is voiding without difficulty. She reports bowel movement x 2. She is breast feeding without concerns. OBJECTIVE: Vitals: 07/04/25 0814 BP: Pulse: 53 Resp: 16 Temp: 36.8 C (98.2 F) SpO2: Lab Results Component Value Date WBC 8.3 07/03/2025 HGB 12.1 07/03/2025 HCT 35.4 07/03/2025 MCV 93 07/03/2025 PLT 148 (L) 07/03/2025 No results found for this or any previous visit (from the past 24 hours). Principal Problem: Encounter for elective induction of labor Active Problems: Encounter for elective induction of labor Benign gestational thrombocytopenia in third trimester Current Facility-Administered Medications: acetaminophen (TYLENOL) tablet 650 mg, 650 mg, oral, Q4H PRN, Rosie Clark APRN-CNM, 650 mg at 07/04/25 0336 benzocaine-menthoL (DERMOPLAST) topical spray 1 Application, 1 Application, topical, PRN, Rosie Clark APRN-TRENA, 1 Application at 07/03/25 1526 bisacodyL (DULCOLAX) suppository 10 mg, 10 mg, rectal, Once PRN, CATRINA Rider carboprost (HEMABATE) injection 250 mcg, 250 mcg, intramuscular, Once PRN, CATRINA Rider docusate sodium (COLACE) capsule 100 mg, 100 mg, oral, BID, CATRINA Rider, 100 mg at 07/04/25 0902 hydrocortisone (ANUSOL-HC) 2.5 % rectal cream 1 Application, 1 Application, rectal, PRN, Rosie Clark APRN-TRENA ibuprofen (MOTRIN) tablet 800 mg, 800 mg, oral, Q8H PRN, CATRINA Rider, 800 mg at 07/04/25 0814 [DISCONTINUED] oxytocin (PITOCIN) infusion 30 units/500 mL in lactated ringers (0.06 units/mL premix), 42 richy-units/min, intravenous, Continuous PRN, Stopped at 07/03/25 1606 AND lactated ringers infusion, 83 mL/hr, intravenous, Continuous PRN, Rosie Clark APRN-TRENA, Stopped at 07/03/25 1606 lactated ringers infusion, 999 mL/hr, intravenous, Continuous PRN, CATRINA Rider methylergonovine (METHERGINE) injection 200 mcg, 200 mcg, intramuscular, Once PRN, CATRINA Rider miSOPROStoL (CYTOTEC) tablet 800 mcg, 800 mcg, sublingual, Once PRN, CATRINA Rider modified lanolin (LANSINOH) 100 % cream cream 1 Application, 1 Application, topical, PRN, CATRINA Rider, 1 Application at 07/03/25 1526 nalbuphine (NUBAIN) injection 10 mg, 10 mg, intravenous, Once, CATRINA Rider oxytocin (PITOCIN) bolus from bag solution 10 Units, 10 Units, intravenous, Once PRN, CATRINA Rider oxytocin (PITOCIN) injection 10 Units, 10 Units, intramuscular, Once PRN, CATRINA Rider oxytocin (PITOCIN) injection 10 Units, 10 Units, intramuscular, Once PRN, Rosie Clark APRN-TRENA PNV,calcium [id number] acid ( PLUS) 27 mg iron- 1 mg tablet 1 tablet, 1 tablet, oral, Daily, CATRINA Rider sodium chloride 0.9 % flush 3 mL, 3 mL, intravenous, PRN, Rosie Clark APRN-TRENA sodium chloride 0.9 % flush 3 mL, 3 mL, intravenous, Q12H MEGHAN, Rosie Clark APRN-LUIS ENRIQUEM, 3 mL at 07/03/25 2310 sodium chloride 0.9 % flush 3 mL, 3 mL, intravenous, Q8H, Rosie Clark APRN-TRENA sodium chloride 0.9 % flush 3 mL, 3 mL, intravenous, PRN, Rosie Clark APRN-TRENA tranexamic acid (CYKLOKAPRON) injection 1,000 mg, 1,000 mg, intravenous, PRN, Rosie Clark APRN-TRENA varicella virus vaccine live (VARIVAX) injection 0.5 mL, 0.5 mL, subcutaneous, During hospitalization, CATRINA Rider (PREPARATION H TOTABLE) pad 1 Application, 1 Application, topical, PRN, CATRINA Rider, 1 Application at 07/03/25 1526 General: patient is alert and calm. Emotional: normal affect Heart: regular rate and rhythm Lungs: clear to ausculation bilaterally Breast: nipples everted, intact without cracking or bleeding Abdomen: soft, non-tender Fundus: firm @ U/1 Perineum: intact Lochia: scant rubra lochia present on pad Extremities: no edema, negative Rojelio's sign, no tenderness in LE Assessment: S/P Stable patient Breast feeding Plan: Continue post orders Plan to discharge home today, as long as baby is discharged Discussed with patient: self care, hygiene, expected bleeding and breast care Discussed recommendations for adequate sleep, nutrition and hydration. Discussed calling for temperature above 100.4, excessive bleeding, mastitis, Discussed importance of reporting persistent headache,visual disturbances or upper abdominal pain. Discussed SOB, chest pain, pain on urination, back pain and pain or swelling in leg. Discussed signs of pp blues vs pp depression. Discussed pp contraception and pelvic rest for 6 weeks. Continue vitamins for 6 weeks or as long as . Return to office for 2 and 6 weeks for exam. - CATRINA Tolliver 07/04/25 9:26 AM CATRINA Tolliver 07/04/25 0976 S:39w3d The patient reports moderate to severe contractions. Pt. Receiving epidural at this time O: FHT: Baseline Rate A: 125 bpm w/moderate variability Presentation: Presentation: Vertex Cervix: Exam per RN Leah Dilation: Dilation: 6.5 Effacement: Effacement (%): 80 Station: Station: 1 Position: deferred [place]: irregular, every 2-4 minutes IV pitocin @9mu/min. Per pump Vitals: 07/03/25 1000 BP: 121/73 Pulse: 57 Resp: 18 Temp: 36.8 A: 25 y.o., at 39w3d weeks Active phase labor. Cat. One EFM tracing Plan : pitocin with titration prn, analgesia prn, and encourage frequent maternal positions changes to help head rotation Anticipate CATRINA Gastelum APRN-CNM 07/03/25 1055 documented in this encounter [facility] 07-04-2025 Plan of care note Problem: Pain Goal: Patient goal is pain score less than 4, able to rest, and participant in treatment plan as appropriate Description: INTERVENTIONS: 1. Encourage patient or legal housing management representative to report early pain and ask for pain medicine when needed 2. Assess pain using appropriate pain scale and include the scale used when documenting 3. Administer analgesics based on type and severity of pain and evaluate response within appropriate time frame 4. Implement non-pharmacological measures as appropriate and evaluate response 5. Consider cultural and social influences on pain and pain management 6. Notify LIP if interventions ineffective or patient reports new pain 7. Monitor vital signs including pulse ox, end-tidal CO2 based on pain intervention 8. Reassess pain per policy 9. Teach patient or legal housing management representative interventions for comforting Outcome: Progressing Note: Evaluation of progress towards goal: Pt able to report pain according to 0/10 pain scale. Medicating patient for pain per orders. Pt encouraged to report early pain, analgesics administered as needed, hourly rounding completed and pain assessed. Problem: Safety Goal: Patient will be injury free during hospitalization Description: INTERVENTIONS: 1. Assess patient's risk for falls and implement fall prevention plan of care per policy 2. Provide and maintain a safe environment 3. Proper use of double Identifiers 4. Medication administration using the 5 rights 5. Hand hygiene 6. Specimens are labeled at the bedside 7. Instruct patient/ patient housing management representative about use of safety devices 8. Include patient/ patient housing management representative in decisions related to safety Outcome: Progressing Note: Evaluation of progress towards goal: Safety measures initiated/maintained. Pt remains safe from harm/injury/falls. Pt's risk for falls assessed and fall prevention implemented as needed, safe environment provided and maintained, hand hygiene completed. Call light within reach/ hourly rounding to meet needs/ safety equipment used as needed/up with assistance when needed. Problem: Infection Goal: Absence of infection during hospitalization Description: INTERVENTIONS 1. Assess and monitor for signs and symptoms of infection. 2. Monitor lab/diagnostic results. 3. Monitor all insertion sites i.e., indwelling lines, tubes and drains. 4. Monitor endotracheal (as able) and nasal secretions for changes in amount and color. 5. Administer medications as ordered. 6. Instruct and encourage patient and family to use good hand hygiene technique. 7. Identify and instruct patient/patient housing management representative in use of appropriate isolation precautions for identified infection/symptoms. 8. Provide and discuss with patient/patient housing management representative on educational MDRO sheet. 9. Encourage and monitor nutritional status daily and consult furnishings conservator if indicated. 10. Implement neutropenic guidelines as needed. Outcome: Progressing Note: Evaluation of progress towards goal: Patient afebrile at this time, patient VS WNL. Pt assessed and monitored for signs and symptoms of infection, lab and diagnostic results monitored as needed, administer medications as needed. Hand hygiene completed. Continue to monitor. Problem: Knowledge Deficit Goal: Patient/patient housing management representative demonstrates understanding of disease process, treatment plan, medications, and discharge instructions Description: INTERVENTIONS 1. Complete learning assessment and assess knowledge base 2. Provide teaching at level of understanding 3. Provide teaching via preferred learning method(s) Outcome: Progressing Note: Evaluation of progress towards goal: Pt learning and knowledge base assessed, teaching provided at an understandable level as needed, teaching provided via preferred learning method. POC discussed with patient, questions answered PRN. Problem: Discharge Planning Goal: Discharge to post-acute care, other facility, or home with appropriate resources Description: Patient's goal is: INTERVENTIONS 1. Conduct assessment to determine patient/family and health care team treatment goals, and need for post-acute services based on payer coverage, community resources, and patient preferences, and barriers to discharge 2. Coordinate with Social work, Care Navigation, and Utilization Review to arrange appropriate level of services according to patient's needs based on patient preference and payer coverage in collaboration with the physician and health care team 3. Address psychosocial, clinical, and financial barriers to discharge as identified in assessment in conjunction with the patient/family and health care team 4. Consult appropriate ancillary services (i.e.. PT/OT/ST, etc) as needed 5. Communicate with and update the patient/family, physician, and health care team regarding progress on the discharge plan 6. Identify discharge learning needs (meds, wound care, etc). 7. Arrange for needed discharge transportation as appropriate Outcome: Progressing Note: Evaluation of progress towards goal: Pt discharge initiated with attending provider, Pt/Family communicated with and updated regarding process on discharge as needed. Reviewed discharge plan and questions answered Additional Comments: [facility] 07-03-2025 Plan of care note Problem: Pain Goal: Patient goal is pain score less than 4, able to rest, and participant in treatment plan as appropriate Description: INTERVENTIONS: 1. Encourage patient or legal housing management representative to report early pain and ask for pain medicine when needed 2. Assess pain using appropriate pain scale and include the scale used when documenting 3. Administer analgesics based on type and severity of pain and evaluate response within appropriate time frame 4. Implement non-pharmacological measures as appropriate and evaluate response 5. Consider cultural and social influences on pain and pain management 6. Notify LIP if interventions ineffective or patient reports new pain 7. Monitor vital signs including pulse ox, end-tidal CO2 based on pain intervention 8. Reassess pain per policy 9. Teach patient or legal housing management representative interventions for comforting Outcome: Progressing Note: Evaluation of progress towards goal: Pt able to report pain according to 0/10 pain scale. Medicating patient for pain per orders. Pt encouraged to report early pain, analgesics administered as needed, hourly rounding completed and pain assessed.Pt able to report pain according to 0/10 pain scale. Medicating patient for pain per orders. Pt encouraged to report early pain, analgesics administered as needed, hourly rounding completed and pain assessed. Problem: Safety Goal: Patient will be injury free during hospitalization Description: INTERVENTIONS: 1. Assess patient's risk for falls and implement fall prevention plan of care per policy 2. Provide and maintain a safe environment 3. Proper use of double Identifiers 4. Medication administration using the 5 rights 5. Hand hygiene 6. Specimens are labeled at the bedside 7. Instruct patient/ patient housing management representative about use of safety devices 8. Include patient/ patient housing management representative in decisions related to safety Outcome: Progressing Note: Evaluation of progress towards goal: Safety measures initiated/maintained. Pt remains safe from harm/injury/falls. Pt's risk for falls assessed and fall prevention implemented as needed, safe environment provided and maintained, hand hygiene completed. Call light within reach/ hourly rounding to meet needs/ safety equipment used as needed/up with assistance when needed. Problem: Infection Goal: Absence of infection during hospitalization Description: INTERVENTIONS 1. Assess and monitor for signs and symptoms of infection. 2. Monitor lab/diagnostic results. 3. Monitor all insertion sites i.e., indwelling lines, tubes and drains. 4. Monitor endotracheal (as able) and nasal secretions for changes in amount and color. 5. Administer medications as ordered. 6. Instruct and encourage patient and family to use good hand hygiene technique. 7. Identify and instruct patient/patient housing management representative in use of appropriate isolation precautions for identified infection/symptoms. 8. Provide and discuss with patient/patient housing management representative on educational MDRO sheet. 9. Encourage and monitor nutritional status daily and consult furnishings conservator if indicated. 10. Implement neutropenic guidelines as needed. Outcome: Progressing Note: Evaluation of progress towards goal: Patient afebrile at this time, patient VS WNL. Pt assessed and monitored for signs and symptoms of infection, lab and diagnostic results monitored as needed, administer medications as needed. Hand hygiene completed. Continue to monitor. Problem: Knowledge Deficit Goal: Patient/patient housing management representative demonstrates understanding of disease process, treatment plan, medications, and discharge instructions Description: INTERVENTIONS 1. Complete learning assessment and assess knowledge base 2. Provide teaching at level of understanding 3. Provide teaching via preferred learning method(s) Outcome: Progressing Note: Evaluation of progress towards goal: Pt learning and knowledge base assessed, teaching provided at an understandable level as needed, teaching provided via preferred learning method. POC discussed with patient, questions answered PRN. Problem: Discharge Planning Goal: Discharge to post-acute care, other facility, or home with appropriate resources Description: Patient's goal is: INTERVENTIONS 1. Conduct assessment to determine patient/family and health care team treatment goals, and need for post-acute services based on payer coverage, community resources, and patient preferences, and barriers to discharge 2. Coordinate with Social work, Care Navigation, and Utilization Review to arrange appropriate level of services according to patient's needs based on patient preference and payer coverage in collaboration with the physician and health care team 3. Address psychosocial, clinical, and financial barriers to discharge as identified in assessment in conjunction with the patient/family and health care team 4. Consult appropriate ancillary services (i.e.. PT/OT/ST, etc) as needed 5. Communicate with and update the patient/family, physician, and health care team regarding progress on the discharge plan 6. Identify discharge learning needs (meds, wound care, etc). 7. Arrange for needed discharge transportation as appropriate Outcome: Progressing Note: Evaluation of progress towards goal: DISCHARGE PLANNING IS IN PROCESS. [facility] Labor and delivery summary note Delivery Record Patient Observations (Last 24 hours) None Patient Observations (Last 24 hours) None Isaias, Pending [[id number]] Events of Labor labor?: No steroids?: None Cervical ripening date/time: Antibiotics received during labor?: No Rupture date/time: 07/03/25 12:06 Rupture type: Artificial, Intact Fluid color: Clear Fluid odor: Yes, No Labor Event Times Labor onset date/time: 07/03/25 10:26 Dilation complete date/time: 07/03/25 12:00 EDT Start pushing date/time: 07/03/2025 12:07 Anesthesia Method: Epidural Anesthesia provided by: denita arambula Assisted Delivery Forceps attempted?: No Vacuum extractor attempted?: No Document Additional Attempt Document Additional Attempt Shoulder Dystocia Shoulder dystocial present?: No Second Maneuver Third Maneuver Fourth Maneuver Fifth Maneuver Sixth Maneuver Seventh Maneuver Eighth Maneuver \Ninth Maneuver Presentation No data filed Information Delivery date/time: 07/03/25 12:11 Delivery type: Vaginal, Spontaneous details: Delivery Providers Delivering clinician: Rachel Rivera DO Provider Role Leah Batres, die turner Nurse Delivery Assist Romeo Do RN [place] Nurse Cord Information Vessels: 3 vessels Complications: Nuchal Nuchal cord description: loose nuchal cord Number of loops: 1 Delayed cord clamping?: Yes Cord clamped date/time: 07/03/2025 12:12 PM Cord blood obtained?: Yes Cord blood disposition: Lab Gases sent?: No Stem cell collection (by )?: No Placenta Date/time: 07/03/2025 12:15 Removal: Spontaneous Appearance: Intact Disposition: discarded hemorrhage: No Resuscitation Method: Tactile stimulation Resuscitation needed: No Additional resources called: No Assessment Living status: Living Skin color: Heart rate: Reflex irritability: Muscle tone: Respiratory effort: Total: 1 Minute: 0 2 2 2 2 8 1 total from OB History 5 Minute: 1 2 2 2 2 9 5 total from OB History 10 Minute: 15 Minute: 20 Minute: Apgars assigned by: ROMEO DO Skin to Skin No data filed Measurements No data filed Lacerations/EBL Surgical or additional est. blood loss (mL): 0 Combined est. blood loss (mL): 0 Other Delivery Procedures No data filed [facility] 07-03-2025 Procedure note Delivery Note Ditch Cleaner: Rachel Rivera DO Guest Service Manager: None Pre-Delivery Diagnosis: Term , Induced labor, or Uncomplicated Post-Delivery Diagnosis: Living infant(s) or Male Procedure: Spontaneous vaginal delivery Surgeon: Rachel Rivera DO Assistants: None Anesthesia: Epidural anesthesia Episiotomy or Incision: none Indications for instrumental delivery: none Placenta and Cord: Mechanism: spontaneous Description: complete, 3 vessel cord Estimated Blood Loss: less than 100 mL Specimens: cord blood Complications: none Condition: stable Blood Type and Rh: A positive, negative Rubella Immunity Status: Immune Infant Feeding: breast [facility] [employer] [facility] Work Phone: 07-03-2025 Procedure note Delivery Note Ditch Cleaner: Rachel Rivera DO Guest Service Manager: None Pre-Delivery Diagnosis: Term , Induced labor, or Uncomplicated Post-Delivery Diagnosis: Living infant(s) or Male Procedure: Spontaneous vaginal delivery Surgeon: Rachel Rivera DO Assistants: None Anesthesia: Epidural anesthesia Episiotomy or Incision: none Indications for instrumental delivery: none Placenta and Cord: Mechanism: spontaneous Description: complete, 3 vessel cord Estimated Blood Loss: less than 100 mL Specimens: cord blood Complications: none Condition: stable Blood Type and Rh: A positive, negative Rubella Immunity Status: Immune Infant Feeding: breast documented in this encounter [facility] 07-03-2025 History and physical note Images from the original note were not included. GENERAL HISTORY AND PHYSICAL: 07/03/25 PROBLEM: Principal Problem: Encounter for elective induction of labor HISTORY OF PRESENT ILLNESS: Corinne Esparza is an 25 y.o. @ 39w3d w/elective IOL. Pt. Affirms + FM and denies LOF, VB and Ctx. She is accompanied by her supportive S.O. and her mother. She plans to use epidural for pain relief and she plans to breastfeed. PAST MEDICAL HISTORY: Past Medical History: Diagnosis Date Acquired scoliosis Anemia Arthritis Back pain Molar PAST SURGICAL HISTORY: Past Surgical History: Procedure Laterality Date DILATION AND CURETTAGE OF UTERUS 03/2024 WISDOM TOOTH EXTRACTION Travel History Travel Screening Question Response Have you been in contact with someone who was sick? No / Unsure Do you have any of the following new or worsening symptoms? None of these Have you traveled internationally or domestically in the last month? No Travel History Travel since 06/02/25 No documented travel since 06/02/25 SOCIAL HISTORY: Social History Socioeconomic History Marital status: Legally Spouse name: Not on file Number of children: Not on file Years of education: Not on file Highest education level: Not on file Occupational History Not on file Tobacco Use Smoking status: Former Types: Vaping/E-cigarettes Smokeless tobacco: Never Vaping Use Vaping status: Former Start date: 11/07/2024 Substances: Nicotine Devices: Disposable Substance and Sexual Activity Alcohol use: Not Currently Comment: socially Drug use: Not Currently Sexual activity: Yes Partners: Male control/protection: None Other Topics Concern Not on file Social History Narrative Not on file Social Drivers of Health Financial Resource Strain: Low Risk (07/01/2025) Overall Financial Resource Strain (CARDIA) Difficulty of Paying Living Expenses: Not hard at all Food Insecurity: No Food Insecurity (07/03/2025) Hunger Screening Food Insecurity - Worry: Never True Food Insecurity - Inability: Never True Transportation Needs: No Transportation Needs (07/01/2025) PRAPARE - Transportation Lack of Transportation (Medical): No Lack of Transportation (Non-Medical): No Physical Activity: Patient Declined (07/01/2025) Exercise Vital Sign Days of Exercise per Week: Patient declined Minutes of Exercise per Session: Patient declined Stress: No Stress Concern Present (07/01/2025) [place] [employer] - Occupational Stress Questionnaire Feeling of Stress : Only a little Social Connections: Unknown (07/01/2025) Social Connection and Isolation Panel [NHANES] Frequency of Communication with Friends and Family: Three times a week Frequency of Social Gatherings with Friends and Family: Three times a week Attends Buddhist Services: Patient declined Active Member of Clubs or Organizations: Patient declined Attends Club or Organization Meetings: Patient declined Marital Status: Never Interpersonal Safety: Not At Risk (07/01/2025) Humiliation, Afraid, Rape, and Kick questionnaire Fear of Current or Ex-Partner: No Emotionally Abused: No Physically Abused: No Sexually Abused: No Housing Instability: Low Risk (07/03/2025) Housing Instability Housing Instability: No ALLERGIES: No Known Allergies HOME MEDICATIONS: Medications Prior to Admission Medication Sig Dispense Refill Last Dose/Taking ferrous sulfate 325 (65 FE) MG tablet Take 1 tablet (325 mg total) by mouth in the morning. (Patient not taking: Reported on 07/02/2025) 90 tablet 1 vit no.124/iron/folic ( VITAMIN ORAL) Take by mouth. IMMUNIZATIONS: Immunization History Administered Date(s) Administered Covid-19, Mrna, Lnp-s, Pf, 30 Mcg/0.3 Ml Dose, Heladio-sucrose 12/13/2022 Tdap 04/17/2025 LABS: Latest Reference Range & Units 07/03/25 06:10 White Blood Cells 4 - 11 x10E9/L 8.3 RBC count 3.8 - 5.2 X10E12/L 3.82 Hemoglobin 11.7 - 15.5 g/dL 12.1 Hematocrit 35 - 47 % 35.4 MCV 80 - 100 fL 93 MCH 27 - 34 pg 31.7 MPV 7 - 12 fL 8.9 MCHC 32 - 36 g/dL 34.2 RDW 11.5 - 15 % 16.8 (H) Platelets 150 - 450 X10E9/L 148 (L) REVIEW OF SYSTEMS: Review of Systems Constitutional: Negative for fever and chills. HENT: Negative for ear pain, sinus pressure and sore throat. Eyes: Negative for pain. Respiratory: Negative for cough and shortness of breath. Cardiovascular: Negative for chest pain and palpitations. Gastrointestinal: Negative for nausea, vomiting, abdominal pain, diarrhea and constipation. Genitourinary: Negative for dysuria and difficulty urinating. Skin: Negative for rash and wound. Psychiatric/Behavioral: Negative for dysphoric mood. Patient's last menstrual period was 09/30/2024. BP 119/70 Pulse 75 Temp 36.6 C (97.9 F) (Oral) Resp 18 LMP 09/30/2024 No data recorded PHYSICAL EXAM: Physical Exam Constitutional She appears well-developed and well-nourished. No distress. Vitals reviewed. HENT Head Normocephalic and atraumatic. Eyes: Right eye exhibits no discharge. Left eye exhibits no discharge. Conjunctiva: Negative for scleral icterus. Neck Neck supple. No stridor and no tracheal deviation present. Negative for thyroid mass, thyromegaly, thyroid asymmetry, thyroid tenderness and thyroid nodules. Cardiovascular: Normal rate and regular rhythm. Heart Sounds: normal heart sounds. no JVD Pulmonary/Chest: Effort normal and breath sounds normal. No stridor. Abdominal: Soft. There is no guarding. VTX by BSUS EFW 6lb 4oz by Bryon crowley Musculoskeletal: Cervical back: Neck supple. Lymph cervical adenopathy not present Neurological She is alert. Skin: Skin is warm and dry. She is not diaphoretic. Psychiatric: She has a normal mood and affect. Her behavior is normal. Genitourinary System normal. External genitalia normal. No labial fusion. There is no rash, tenderness, lesion or injury on the right labia. There is no rash, tenderness, lesion or injury on the left labia. Genitourinary Comments: SVE: 4/70/-2; mid-position, soft. Bulging bag of water EFM: 115 w/moderate variability; + accelerations and no decelerations [place]: Ctx. Q. 2-5min. ASSESSMENT: 25y.o. @ 39w3d for elective IOL Cat.I EFM tracing Hx. Anemia, presumed iron deficiency Late to care Hx. arthritis Gestational thrombocytopenia PLAN: Admit to L&D Routine admission orders IV pitocin for IOL and AROM prn Discussed w/pt. IV pitocin is a high risk medication and there is a slight increased risk of needing a section w/use thereof; discussed need for continuous EFM monitoring and pt. In agreement w/plan of care Discussed w/Dr. Cisse Anticipate CATRINA Rider 07/03/25 0728 CATRINA Rider 07/03/25 0804 [facility] 07-03-2025 History and physical note Images from the original note were not included. GENERAL HISTORY AND PHYSICAL: 07/03/25 PROBLEM: Principal Problem: Encounter for elective induction of labor HISTORY OF PRESENT ILLNESS: Corinne Esparza is an 25 y.o. @ 39w3d w/elective IOL. Pt. Affirms + FM and denies LOF, VB and Ctx. She is accompanied by her supportive S.O. and her mother. She plans to use epidural for pain relief and she plans to breastfeed. PAST MEDICAL HISTORY: Past Medical History: Diagnosis Date Acquired scoliosis Anemia Arthritis Back pain Molar PAST SURGICAL HISTORY: Past Surgical History: Procedure Laterality Date DILATION AND CURETTAGE OF UTERUS 03/2024 WISDOM TOOTH EXTRACTION Travel History Travel Screening Question Response Have you been in contact with someone who was sick? No / Unsure Do you have any of the following new or worsening symptoms? None of these Have you traveled internationally or domestically in the last month? No Travel History Travel since 06/02/25 No documented travel since 06/02/25 SOCIAL HISTORY: Social History Socioeconomic History Marital status: Legally Spouse name: Not on file Number of children: Not on file Years of education: Not on file Highest education level: Not on file Occupational History Not on file Tobacco Use Smoking status: Former Types: Vaping/E-cigarettes Smokeless tobacco: Never Vaping Use Vaping status: Former Start date: 11/07/2024 Substances: Nicotine Devices: Disposable Substance and Sexual Activity Alcohol use: Not Currently Comment: socially Drug use: Not Currently Sexual activity: Yes Partners: Male control/protection: None Other Topics Concern Not on file Social History Narrative Not on file Social Drivers of Health Financial Resource Strain: Low Risk (07/01/2025) Overall Financial Resource Strain (CARDIA) Difficulty of Paying Living Expenses: Not hard at all Food Insecurity: No Food Insecurity (07/03/2025) Hunger Screening Food Insecurity - Worry: Never True Food Insecurity - Inability: Never True Transportation Needs: No Transportation Needs (07/01/2025) PRAPARE - Transportation Lack of Transportation (Medical): No Lack of Transportation (Non-Medical): No Physical Activity: Patient Declined (07/01/2025) Exercise Vital Sign Days of Exercise per Week: Patient declined Minutes of Exercise per Session: Patient declined Stress: No Stress Concern Present (07/01/2025) [place] [employer] of Occupational Health - Occupational Stress Questionnaire Feeling of Stress : Only a little Social Connections: Unknown (07/01/2025) Social Connection and Isolation Panel [NHANES] Frequency of Communication with Friends and Family: Three times a week Frequency of Social Gatherings with Friends and Family: Three times a week Attends Buddhist Services: Patient declined Active Member of Clubs or Organizations: Patient declined Attends Club or Organization Meetings: Patient declined Marital Status: Never Interpersonal Safety: Not At Risk (07/01/2025) Humiliation, Afraid, Rape, and Kick questionnaire Fear of Current or Ex-Partner: No Emotionally Abused: No Physically Abused: No Sexually Abused: No Housing Instability: Low Risk (07/03/2025) Housing Instability Housing Instability: No ALLERGIES: No Known Allergies HOME MEDICATIONS: Medications Prior to Admission Medication Sig Dispense Refill Last Dose/Taking ferrous sulfate 325 (65 FE) MG tablet Take 1 tablet (325 mg total) by mouth in the morning. (Patient not taking: Reported on 07/02/2025) 90 tablet 1 vit no.124/iron/folic ( VITAMIN ORAL) Take by mouth. IMMUNIZATIONS: Immunization History Administered Date(s) Administered Covid-19, Mrna, Lnp-s, Pf, 30 Mcg/0.3 Ml Dose, Heladio-sucrose 12/13/2022 Tdap 04/17/2025 LABS: Latest Reference Range & Units 07/03/25 06:10 White Blood Cells 4 - 11 x10E9/L 8.3 RBC count 3.8 - 5.2 X10E12/L 3.82 Hemoglobin 11.7 - 15.5 g/dL 12.1 Hematocrit 35 - 47 % 35.4 MCV 80 - 100 fL 93 MCH 27 - 34 pg 31.7 MPV 7 - 12 fL 8.9 MCHC 32 - 36 g/dL 34.2 RDW 11.5 - 15 % 16.8 (H) Platelets 150 - 450 X10E9/L 148 (L) REVIEW OF SYSTEMS: Review of Systems Constitutional: Negative for fever and chills. HENT: Negative for ear pain, sinus pressure and sore throat. Eyes: Negative for pain. Respiratory: Negative for cough and shortness of breath. Cardiovascular: Negative for chest pain and palpitations. Gastrointestinal: Negative for nausea, vomiting, abdominal pain, diarrhea and constipation. Genitourinary: Negative for dysuria and difficulty urinating. Skin: Negative for rash and wound. Psychiatric/Behavioral: Negative for dysphoric mood. Patient's last menstrual period was 09/30/2024. BP 119/70 Pulse 75 Temp 36.6 C (97.9 F) (Oral) Resp 18 LMP 09/30/2024 No data recorded PHYSICAL EXAM: Physical Exam Constitutional She appears well-developed and well-nourished. No distress. Vitals reviewed. HENT Head Normocephalic and atraumatic. Eyes: Right eye exhibits no discharge. Left eye exhibits no discharge. Conjunctiva: Negative for scleral icterus. Neck Neck supple. No stridor and no tracheal deviation present. Negative for thyroid mass, thyromegaly, thyroid asymmetry, thyroid tenderness and thyroid nodules. Cardiovascular: Normal rate and regular rhythm. Heart Sounds: normal heart sounds. no JVD Pulmonary/Chest: Effort normal and breath sounds normal. No stridor. Abdominal: Soft. There is no guarding. VTX by WILLIE EFW 6lb 4oz by Bryon crowley Musculoskeletal: Cervical back: Neck supple. Lymph cervical adenopathy not present Neurological She is alert. Skin: Skin is warm and dry. She is not diaphoretic. Psychiatric: She has a normal mood and affect. Her behavior is normal. Genitourinary System normal. External genitalia normal. No labial fusion. There is no rash, tenderness, lesion or injury on the right labia. There is no rash, tenderness, lesion or injury on the left labia. Genitourinary Comments: SVE: 4/70/-2; mid-position, soft. Bulging bag of water EFM: 115 w/moderate variability; + accelerations and no decelerations [place]: Ctx. Q. 2-5min. ASSESSMENT: 25y.o. @ 39w3d for elective IOL Cat.I EFM tracing Hx. Anemia, presumed iron deficiency Late to care Hx. arthritis Gestational thrombocytopenia PLAN: Admit to L&D Routine admission orders IV pitocin for IOL and AROM prn Discussed w/pt. IV pitocin is a high risk medication and there is a slight increased risk of needing a section w/use thereof; discussed need for continuous EFM monitoring and pt. In agreement w/plan of care Discussed w/Dr. Cisse Anticipate CATRINA Rider 07/03/25 0728 CATRINA Rider 07/03/25 0804 documented in this encounter [facility] 07-02-2025 History of Present illness Narrative Patient is a 25 year of age at 39 weeks and 2 days gestational age who presents today to discuss elective induction of labor. She is feeling good movements, no leakage of fluid, no vaginal bleeding. She is having irregular contractions and cramping. She has lost her mucus blood, but denies leakage of fluid. Patient was seen in labor and delivery last night for a rule out labor. She had a category 1 tracing at that time. Of note, patient did have EFW in the 13th percentile with her last ultrasound. She was advised to follow up in the office today to discuss scheduling elective induction of labor. We added patient on to our schedule for tomorrow morning. She is to present at 5:30 a.m. with plans for pit/AROM. Patient advised that if she does begin to have regular contractions or feels that her water has broken prior to that time she should present sooner. Trace leukocytes in urine today. documented in this encounter [facility] 06-26-2025 History of Present illness Narrative Routine OB visit SUBJECTIVE Corinne Esparza is a 25 y.o. at 38w3d by LMP=16wk us She admits to irregular contractions She denies vaginal bleeding, vaginal discharge, or loss of fluid. movement: present Other questions or concerns today: Would like cervix checked and membrane sweep today OBJECTIVE Current Medications: Current Outpatient Medications: ferrous sulfate 325 (65 FE) MG tablet, Take 1 tablet (325 mg total) by mouth in the morning., Disp: 90 tablet, Rfl: 1 vit no.124/iron/folic ( VITAMIN ORAL), Take by mouth., Disp: , Rfl: Vitals BP 110/70 Wt 68.9 kg (151 lb 12.8 oz) LMP 09/30/2024 BMI 23.78 kg/m See OB flowsheet Labs ABO/Rh: No results found for: ABORH Group B Strep: Lab Results Component Value Date CULTURE 06/13/2025 NEGATIVE FOR GROUP B STREPTOCOCCUS BY NUCLEIC ACID AMPLIFICATION Hepatitis B Surface Antigen: Lab Results Component Value Date HEPBSAG Non-Reactive 01/31/2025 Rubella: Lab Results Component Value Date RUBELLAIMMU 3.1 01/31/2025 Varicella Lab Results Component Value Date VARIGG 0.8 01/31/2025 HIV: Lab Results Component Value Date HIV4 Non-Reactive 01/31/2025 RPR (VDRL): Lab Results Component Value Date SYPHILISTOT <0.2 06/24/2025 One hour GTT: Lab Results Component Value Date LABGLUC 89 04/10/2025 Physical Exam: General: Patient is well-appearing, alert, oriented, and in no distress Abd: soft, non-tender, gravid Ext: no edema FHT: 140 Fundal height: 37 cm Cervical exam: /-2, mid-position, soft, vertex Discussed membrane sweeping, risks and benefits, pt opted to proceed. Gentle membrane sweep, pt tolerated well, no spotting. ASSESSMENT & PLAN 25 y.o. @ 38w3d, PHIL 07/07/2025, by Last Menstrual Period presents for routine OB visit 1. 38 weeks gestation of (Primary) Rh positive GBS negative (06/13/25) 2. Anemia in , third trimester H/H 11.3/32.6, plts 157k (06/24) Ferritin 8 (05/23) Taking iron supplement Growth US (06/20/25): FHR 137, cephalic, posterior placenta, DVP 3.5 cm, EFW 13% appropriate interval growth Pain control in labor: undecided, breastfeed, peds: NOMS Reviewed OB warning signs, signs of labor, when to be evaluated RTO in 1 week(s) LULU Ortiz 06/26/25 1152 documented in this encounter [facility] 06-19-2025 History of Present illness Narrative Routine OB Visit 25 y.o. at 37w3d. Positive movement. No regular contractions, vaginal bleeding or leaking of fluid. No headaches or swelling. Patient would like to be checked today. Vitals: 06/19/25 1138 BP: 116/70 Weight: 69.3 kg (152 lb 12.8 oz) complicated by: Patient Active Problem List Diagnosis Late care History of induced History of miscarriage Back pain in Anemia in , third trimester Dizzy Headache 1. Reviewed signs of labor and reinforced movement counts. 2. Discussed when to present to labor and delivery. 3. GBS results reviewed (negative). 4. Discussed L&D visitation guidelines. 5. Reviewed Plan: Pain control: epidural plans to breastfeed Patient has a breast pump [employer] Train[employer]: DUARTE control: IUD 6. Growth u/s ordered for size < dates. 7. Educational information given. 8. Questions answered. 9. Follow up 1 week. LULU Youssef 06/19/25 1203 documented in this encounter [facility] 06-19-2025 Instructions LULU Youssef - 06/19/2025 11:45 AM EDT The Centers for Disease Control and Prevention (CDC) recommends the following steps to help babies sleep safely and reduce the risk of sleep-related infant deaths, including SIDS: Place your baby on his or her back for all sleep times--naps and at night. Use a firm, flat (not at an angle or inclined) sleep surface, such as a mattress in a safety-approved crib covered only by a fitted sheet. Keep your baby s sleep area (for example, a crib or bassinet) in the same room where you sleep, ideally until your baby is at least 6 months old. Keep soft bedding such as blankets, pillows, bumper pads, and soft toys out of your baby s sleep area. Do not cover your baby s head or allow your baby to get too hot. Avoid using products that claim to reduce the risk of SIDS, such as wedges or positioners. Do not use home cardiorespiratory monitors as a strategy to reduce the risk of SIDS. For more information on how to create a safe sleep environment for your baby, please visit the CDC s website The following attachments cannot be sent through Care Everywhere. [facility] ([employer])[facility] History of Present illness Narrative Routine OB Visit 25 y.o. at 36w4d. No contractions, vaginal bleeding, or loss of fluid. Patient reports decreased movement since last night. She is also c/o worsening lower back pain.. No headaches or swelling. Vitals: 06/13/25 1309 BP: 120/80 Weight: 69.5 kg (153 lb 3.2 oz) complicated by: Patient Active Problem List Diagnosis Late care History of induced History of miscarriage Back pain in Anemia in , third trimester Dizzy Headache 1. Reviewed signs of labor and movement. 2. Reviewed warning signs of , including s/s of preeclampsia. 3. Patient sent to L&D. YOLANDA Thompson notified that patient is on her way. 4. GBS education/ collected. No Known Allergies 5. Educated on current visitation guidelines in L & D.. 6. Discussed comfort tips for back pain. 7. Educational information given. 8. Questions answered. 9. Return 1 week. LULU Youssef 06/13/25 1332 [facility] History of Present illness Narrative Pt here for IV venofer as scheduled. Denies any issues with previous doses. PIV initiated to RFA. Brisk blood return verified. Flushes with ease. NS started at KVO. IV venofer infused over 15 minutes without incident. Line flushed. Pt declines 30 minute post observation. VS obtained and stable. Pt reports she feels well. PIV removed. Pressure dressing applied. Dc'd in stable ambulatory condition. documented in this encounter [facility] 06-11-2025 Miscellaneous Notes Patient called inquiring when they should have next growth US. Patient is 36w&2d. Patient had NST on 04/23/25, MFM FU US on 03/18/25, MFM survey US on 02/18/25. Please advise, thank you! - Luz Elena Jung MA 06/11/25 2:38 PM [facility] did not recommend serial growth ultrasounds as patient's growth was appropriate at her last u/s. If she desires another u/s, we can talk about it at her next visit. Called patient and informed of information. Patient voiced understanding. - Luz Elena Jung MA 06/11/25 4:23 PM documented in this encounter [facility] 06-11-2025 Telephone encounter Note Patient called inquiring when they should have next growth US. Patient is 36w&2d. Patient had NST on 04/23/25, MFM FU US on 03/18/25, MFM survey US on 02/18/25. Please advise, thank you! - Luz Elena Jung MA 06/11/25 2:38 PM [facility] 06-11-2025 Telephone encounter Note [facility] did not recommend serial growth ultrasounds as patient's growth was appropriate at her last u/s. If she desires another u/s, we can talk about it at her next visit. [facility] 06-11-2025 Telephone encounter Note Called patient and informed of information. Patient voiced understanding. - Luz Elena Jung MA 06/11/25 4:23 PM [facility] 06-10-2025 History of Present illness Narrative Patient is here for IV Venofer as scheduled. She tolerated her last dose well without issues. PIV initiated in right hand without incident and patient tolerated well. NS initiated as mainline at KVO rate. Venofer initiated and set to infuse over 15 minutes. Medication completed without incident and patient denies any issues. Patient denies need for 30 minutes post infusion for observation. VS stable. PIV discontinued and pressure dressing applied. Reviewed next appointment time with patient. Discharged in stable condition to private vehicle documented in this encounter [facility] 06-07-2025 History of Present illness Narrative Patient here for venofer infusion. Patient reports that she has tolerated previous doses well. IV initiated per protocol. Patient becomes lightheaded and dizzy immediately after IV start. Symptoms relieved after drinking water, elevating legs and deep breathing. Venofer administered without complications and tolerated well. Post infusion VS stable. Patient remains for observation period and denies complaints throughout. IV d/c'd. Patient discharged to private vehicle in stable condition. documented in this encounter [facility] 06-05-2025 History of Present illness Narrative Patient is here for IV Venofer as scheduled. She tolerated her last dose well without issues. PIV initiated in right hand without incident and patient tolerated well. NS initiated as mainline at KVO rate. Venofer initiated and set to infuse over 15 minutes. Medication completed without incident and patient denies any issues. Patient remained on unit for 30 minutes post infusion for observation. No adverse reaction noted or reported. VS stable. PIV discontinued and pressure dressing applied. Reviewed next appointment time with patient. Discharged in stable condition to private vehicle. documented in this encounter [facility] 06-03-2025 History of Present illness Narrative Patient is here for IV Venofer as scheduled. Patient education provided and procedure reviewed. Patient agreeable to proceed with IV Venofer as planned. PIV initiated in right forearm without incident and patient tolerated well. NS initiated as mainline at KVO rate. Venofer initiated and set to infuse over 15 minutes. Medication completed without incident and patient denies any issues. Patient remained on unit for 30 minutes post infusion for observation. No adverse reaction noted or reported. VS stable. PIV discontinued and pressure dressing applied. Reviewed next appointment time with patient. Discharged in stable condition to private vehicle. documented in this encounter [facility] 05-28-2025 History of Present illness Narrative HPI: Patient is a 25 y.o. female who presents today for routine check. She is currently 34w2d and . Patient reports good movement. She denies any vaginal leaking or bleeding. Patient denies contractions or cramping. History of anemia, IAB, and molar . Hematology consult today, scheduled for iron infusions every 2 days. BPP ultrasound on 04/23/25. OB History 4 Para 1 Term 1 AB 2 Living 1 SAB 1 IAB 1 Ectopic Multiple Live Births 1 BP 90/66 Wt 67.9 kg (149 lb 9.6 oz) LMP 09/30/2024 BMI 24.15 kg/m ASSESSMENT/PLAN: Discussed how the patient is feeling and any concerns she has at this time. Advised the patient to remain well hydrated. Avoid heavy lifting, nothing over 10-15 lbs. Recommended tracking kick counts with baby moving around 10 times in a two hour period twice daily. Advised to report to the ED with any water breaking, bleeding like a period, or contractions 2 minutes apart lasting over an hour after sitting down and drinking water. Follow up in 2 weeks. Renetta Martinez 05/28/25 1453 MARÍA BUI MD documented in this encounter [facility] 05-28-2025 History of Present illness Narrative Benign Hematology/ Patient Blood Management Consultation: Dr. Ariel Sam FITNESS TECHNICIAN Lesia MARTINEZ Patient ID: Corinne Esparza, 25 y.o. female Requested by: Nicolasa Pierre APRN-C* PCP: Anne Llanes MD : [id number] REASON FOR CONSULTATION: Anemia in CHIEF COMPLAINT: Fatigue HISTORY OF PRESENT ILLNESS: Corinne Esparza is a 25 y.o. female with history of Headaches, miscarriage who presents with RICO in . Patient has been taking iron pills for a couple months. She had not noticed any difference in how she felt. Currently not dealing with any headaches. States she just feels extremely tired and exhausted. Positive craving for ice. Positive for leg cramping that last for over 20 minutes. PAST HEMATOLOGY / VASCULAR HISTORY: REVIEW OF SYSTEMS: Complete 10-point ROS is negative except as mentioned in HPI. PAST MEDICAL HISTORY: Past Medical History: Diagnosis Date Acquired scoliosis Anemia Arthritis Back pain Molar PAST SURGICAL HISTORY: Past Surgical History: Procedure Laterality Date DILATION AND CURETTAGE OF UTERUS 03/2024 WISDOM TOOTH EXTRACTION PAST FAMILY HISTORY: Family History Problem Relation Age of Onset Hypertension Maternal Grandmother Hypertension Maternal Grandfather Hypertension Father SOCIAL HISTORY: Lives in home. Social History Socioeconomic History Marital status: Legally Spouse name: Not on file Number of children: Not on file Years of education: Not on file Highest education level: Not on file Occupational History Not on file Tobacco Use Smoking status: Former Types: Vaping/E-cigarettes Smokeless tobacco: Never Vaping Use Vaping status: Former Start date: 11/07/2024 Substances: Nicotine Devices: Disposable Substance and Sexual Activity Alcohol use: Not Currently Comment: socially Drug use: Not Currently Sexual activity: Yes Partners: Male control/protection: None Other Topics Concern Not on file Social History Narrative Not on file Social Drivers of Health Financial Resource Strain: Low Risk (02/05/2025) Overall Financial Resource Strain (CARDIA) Difficulty of Paying Living Expenses: Not hard at all Food Insecurity: No Food Insecurity (05/13/2025) Hunger Screening Food Insecurity - Worry: Never True Food Insecurity - Inability: Never True Transportation Needs: No Transportation Needs (04/23/2025) PRAPARE - Transportation Lack of Transportation (Medical): No Lack of Transportation (Non-Medical): No Physical Activity: Not on file Stress: Not on file Social Connections: Not on file Interpersonal Safety: Not At Risk (04/23/2025) Humiliation, Afraid, Rape, and Kick questionnaire Fear of Current or Ex-Partner: No Emotionally Abused: No Physically Abused: No Sexually Abused: No Housing Instability: Low Risk (04/23/2025) Housing Instability Housing Instability: No MEDICATIONS: Current Outpatient Medications on File Prior to Visit Medication Sig Dispense Refill ferrous sulfate 325 (65 FE) MG tablet Take 1 tablet (325 mg total) by mouth in the morning. 90 tablet 1 vit no.124/iron/folic ( VITAMIN ORAL) Take by mouth. No current facility-administered medications on file prior to visit. ALLERGIES: No Known Allergies PHYSICAL EXAMINATION: Vital signs: LMP 09/30/2024 General appearance: awake, alert, oriented, no acute distress HEENT: supple LABORATORY DATA: Lab Results Component Value Date WBC 8.8 04/23/2025 WBC 8.1 04/10/2025 WBC 5.9 01/31/2025 HGB 11.2 (L) 05/23/2025 HGB 10.2 (L) 04/23/2025 HGB 10.2 (L) 04/10/2025 HCT 33.2 (L) 05/23/2025 HCT 29.4 (L) 04/23/2025 HCT 30.0 (L) 04/10/2025 MCV 93 04/23/2025 MCV 94 04/10/2025 MCV 94 01/31/2025 PLT 170 04/23/2025 PLT 153 04/10/2025 PLT 158 01/31/2025 Lab Results Component Value Date GLU 133 (H) 04/23/2025 CALCIUM 8.2 (L) 04/23/2025 SODIUM 132 (L) 04/23/2025 K 3.6 04/23/2025 CO2 20 (L) 04/23/2025 BUN 5 04/23/2025 CREATININE 0.38 (L) 04/23/2025 Lab Results Component Value Date ALT 10 04/23/2025 AST 14 04/23/2025 ALKPHOS 51 04/23/2025 No results found for: INR , PROTIME Lab Results Component Value Date FERRITIN 8 (L) 05/23/2025 IRON 29 (L) 05/23/2025 TIBC 580 (H) 05/23/2025 IRONSAT 5 (L) 05/23/2025 No results found for: TSH No components found for: HGBELECTROPHORESIS ASSESSMENT/RECOMMENDATIONS: 1. Iron Deficiency Anemia during : - 10/24/2021- vag spont 02/26/2022- hgb 13.4 10/07/2023-hemoglobin 11.8 05/08/2024-hemoglobin 11.5 08/24/2024-18 weeks 01/31/2025-hemoglobin 11.4 04/23/2025-hemoglobin 10.2 - Supplements taking oral iron and tolerating - Currently in the 3rd trimester. Her due date is 07/07/2025. She was referred here by her OBGYN team. She is anticipating a baby - Currently, she describes some symptoms of iron deficiency including fatigue, falling asleep easily, restless legs, and foggy thinking. We discussed her history in detail today. We discussed that she appears to be iron deficient. We discussed that iron deficiency is frequently encountered during . Iron deficiency anemia during has been associated with an increased risk of adverse outcomes including low weight, delivery,and mortality. In addition, there may be an association between maternal iron deficiency anemia and depression. Children born to iron deficient mothers demonstrate lower cognitive function as well as memory and motor deficits. The iron requirements during are more than patients can take in orally. Therefore, patient's often have to draw from her iron stores during . Some patients have low or depleted iron stores prior to short interval between pregnancies or heavy menstrual cycles. She meets the diagnosis of anemia in with hemoglobin of less than 11. Her ferritin is less than 30, she needs a diagnosis of iron deficiency anemia in . As she is in the 3rd trimester, I would typically recommend intravenous iron. I discussed this with her in detail today. The goals of this therapy would be to help her feel better, prevent blood transfusions during delivery, and potentially have impact on iron and development. We discussed the different formulations of IV iron. Most common adverse reactions are nausea, vomiting, chest pain, backache, hypersensitivity, dyspnea, hypotension, pruritus, flushing, and dizziness.Severe adverse reactions including circulatory failure (severe hypotension, shock including in the context of anaphylactic reaction)which may have serious consequences on the fetus such as bradycardia. RECOMMENDATIONS: - Discussed diagnosis of iron deficiency anemia during . - We discussed proceeding with IV iron as she is in the 3rd trimester. The goals of this therapy would be to help her feel better, prevent blood transfusions during delivery, and potentially have impact on iron and development. She was in agreement to proceed. - order for iv iron was placed by ob- last iv iron infusion should be on 06/12- plan to recheck labs about 4 weeks after - goal ferritin level >30 or iron sat >20 - continue vitamin daily -continue oral iron daily - recheck labs 6 weeks post delivery to monitor for iron deficiency -Delivery at [facility] -discussed iv iron and answered all questions Video Visit via Real-time Synchronous Audiovisual [facility] [address] [place] [address] Patient Location: Patient's home Video Visit Consent Statement: I discussed risks, benefits, and alternatives of a real-time synchronous audiovisual consultation with the patient (and any accompanying persons) including the risks that the patient's personal health details and medical records will be discussed over real-time, synchronous, interactive video/audio/telecommunication technology, the visit will not be recorded without the express consent of both the provider and the patient, and that there are some limitations compared to [id number] evaluations. The patient consented to the presence of additional virtual and/or in-person participants. We elected to proceed. Robbie Sam NP Benign Hematology/ Patient Blood Management/Bloodless Medicine Office [phone] LULU Pascual 05/28/25 1232 documented in this encounter [facility] 05-28-2025 Instructions LULU Pascual - 05/28/2025 9:30 AM EDT Images from the original note were not included. The following attachments cannot be sent through Care Everywhere.Iron Sucrose, ADULT (Cymraes)documented in this encounter [facility] 05-23-2025 Miscellaneous Notes LVM for pt to schedule referral appt with robbie or lesia labs done 05/23 PT called to schedule referral appt with robbie on 05/28 at 9:30 am viamy chart video. Labs done documented in this encounter [facility] 05-23-2025 Telephone encounter Note LVM for pt to schedule referral appt with robbie or lesia [facility] Telephone encounter Note PT called to schedule referral appt with robbie on 05/28 at 9:30 am viamy chart video. [facility] 05-13-2025 History of Present illness Narrative Routine OB visit SUBJECTIVE Corinne Esparza is a 25 y.o. at 32w1d by LMP=16 wk us She denies cramping, contractions, or abdominal pain She denies vaginal bleeding, vaginal discharge, or loss of fluid. movement: present Other questions or concerns today: none OBJECTIVE Current Medications: Current Outpatient Medications: ferrous sulfate 325 (65 FE) MG tablet, Take 1 tablet (325 mg total) by mouth in the morning., Disp: 90 tablet, Rfl: 1 vit no.124/iron/folic ( VITAMIN ORAL), Take by mouth., Disp: , Rfl: Vitals BP 102/64 Wt 66.8 kg (147 lb 3.2 oz) LMP 09/30/2024 BMI 23.76 kg/m See OB flowsheet Labs ABO/Rh: No results found for: ABORH Group B Strep: Lab Results Component Value Date CULTURE NO GROWTH AT <1000 CFU/mL 01/31/2025 Hepatitis B Surface Antigen: Lab Results Component Value Date HEPBSAG Non-Reactive 01/31/2025 Rubella: Lab Results Component Value Date RUBELLAIMMU 3.1 01/31/2025 Varicella Lab Results Component Value Date VARIGG 0.8 01/31/2025 HIV: Lab Results Component Value Date HIV4 Non-Reactive 01/31/2025 RPR (VDRL): Lab Results Component Value Date SYPHILISTOT <0.2 04/10/2025 One hour GTT: Lab Results Component Value Date LABGLUC 89 04/10/2025 Physical Exam: General: Patient is well-appearing, alert, oriented, and in no distress Abd: soft, non-tender, gravid Ext: no edema FHT: 130 Fundal height: 30 cm ASSESSMENT & PLAN 25 y.o. @ 32w1d, PHIL 07/07/2025, by Last Menstrual Period presents for routine OB visit 1. 32 weeks gestation of (Primary) Passed one hour glucose screen Syphilis NR Rh positive 2. Anemia in , third trimester 04/23/25 H/H 10.2/29.4. Pt has been taking PO iron every other day, unable to take on an empty stomach, causes vomiting, Iron infusions were previously ordered, pt has additional anemia labs to complete. She will go to the lab after her visit today. [facility] survey (03/18/25): FHR 144, cephalic, posterior placenta, 3 VC, DVP 7.4 cm, EFW 41%, AC 65%. Visualized anatomy was normal. S/p Tdap 04/17/25 RTO in 2 week(s) LULU Ortiz 05/13/25 0927 documented in this encounter [facility] 05-01-2025 History of Present illness Narrative Routine OB Visit 25 y.o. at 30w3d. No contractions, vaginal bleeding or loss of fluid. No headache or swelling. Good movement. Today patient c/o extreme fatigue. She is taking iron supplements, but wants to try iron infusions to see if that will help her feel better. Patient has breast pump. Vitals: 05/01/25 0917 BP: 108/62 Weight: 67.2 kg (148 lb 3.2 oz) complicated by: Patient Active Problem List Diagnosis Late care History of induced History of miscarriage Back pain in Anemia in , third trimester Vaginal discharge Dizzy Headache 1. Reviewed signs of labor & other warning signs of including preeclampsia. 2. Reviewed recommendation for twice daily FKC. Pt to notify provider if criteria is not met or if FM decreased by 50%. 3. Reviewed 28 week labs. 4. Discussed CDC / WHO recommendations for exclusive for the first 6 months. 5. Patient received Tdap 04/17/25. 6. Iron infusions ordered and patient encouraged to get additional labs drawn. 7. Educational information given. 8. Questions answered. 9. Return 2 weeks. LULU Youssef 05/01/25 0929 documented in this encounter [facility] 04-23-2025 History of Present illness Narrative HPI: Patient is a 25 y.o. female who presents today for routine check. She is currently 29w2d and . Patient reports good movement. She denies any vaginal bleeding. She reports changing her underwear a couple times daily due to watery odorless discharge. Patient denies contractions or cramping. Patient reports the leaking began in the last 72 hours. She reports having a slow amniotic leak with her last child. Patient reports she is having migraines and visual changes. Migraine has been lasting a couple days, Tylenol gives no relief. Patient states she was cooking when she walked over to help her son when her vision suddenly became blurry and lost sight. She reports vomiting at that time. Her head began pounding and then she went to the bathroom and began vomiting. Afterwards she was shaking and checked her BP which was low. She is now lightheaded. No LOC, no head trauma, no trauma to abdomen. Patient is having constipation but thinks it is due to starting iron supplements. Patient denies fever, chills, or diarrhea. OB History 4 Para 1 Term 1 AB 2 Living 1 SAB 1 IAB 1 Ectopic Multiple Live Births 1 BP 122/58 Wt 66.3 kg (146 lb 3.2 oz) LMP 09/30/2024 BMI 23.60 kg/m ASSESSMENT/PLAN: Discussed how the patient is feeling and any concerns she has at this time. Advised patient to avoid changing positions quickly. Advised drinking powerade, Pedialyte, Gatorade, and water to stay hydrated. Will send patient to L&D for blood work and testing for amniotic fluid leakage. Will see if patient can get in for an ultrasound today with L&D. Recommended tracking kick counts with baby moving around 10 times in a two hour period twice daily. Advised to report to the ED with any water breaking, bleeding like a period, or contractions 2 minutes apart lasting over an hour after sitting down and drinking water. Renetta Juan 04/23/25 0498 HPI: Patient is a 25 y.o. female who presents today for routine check. She is currently 29w2d and . Patient reports good movement. She denies any vaginal bleeding. She reports changing her underwear a couple times daily due to watery odorless discharge. Patient denies contractions or cramping. Patient reports the leaking began in the last 72 hours. She reports having a slow amniotic leak with her last child. Patient reports she is having migraines and visual changes. Migraine has been lasting a couple days, Tylenol gives no relief. Patient states she was cooking when she walked over to help her son when her vision suddenly became blurry and lost sight. She reports vomiting at that time. Her head began pounding and then she went to the bathroom and began vomiting. Afterwards she was shaking and checked her BP which was low. She is now lightheaded. No LOC, no head trauma, no trauma to abdomen. Patient is having constipation but thinks it is due to starting iron supplements. Patient denies fever, chills, or diarrhea. OB History 4 Para 1 Term 1 AB 2 Living 1 SAB 1 IAB 1 Ectopic Multiple Live Births 1 BP 122/58 Wt 66.3 kg (146 lb 3.2 oz) LMP 09/30/2024 BMI 23.60 kg/m ASSESSMENT/PLAN: Discussed how the patient is feeling and any concerns she has at this time. Advised patient to avoid changing positions quickly. Advised drinking powerade, Pedialyte, Gatorade, and water to stay hydrated. Will send patient to L&D for blood work and testing for amniotic fluid leakage. Will see if patient can get in for an ultrasound today with L&D. Recommended tracking kick counts with baby moving around 10 times in a two hour period twice daily. Advised to report to the ED with any water breaking, bleeding like a period, or contractions 2 minutes apart lasting over an hour after sitting down and drinking water. Renetta Martinez 04/23/25 1435 documented in this encounter [facility] 04-23-2025 Miscellaneous Notes Pt called stating she has had vision changes, emesis, and has been feeling shaky since this morning. Pt states she took their BP twice today, 92/50 and 94/60. Pt states she's had a headache for 2 days. Pt stated she's ate today and has taken proper medication. Pt denies losing consciousness. Pt denies any falls. Pt schedule today to be seen. - Luz Elena Jung MA 04/23/25 11:27 AM documented in this encounter [facility] 04-23-2025 Telephone encounter Note Pt called stating she has had vision changes, emesis, and has been feeling shaky since this morning. Pt states she took their BP twice today, 92/50 and 94/60. Pt states she's had a headache for 2 days. Pt stated she's ate today and has taken proper medication. Pt denies losing consciousness. Pt denies any falls. Pt schedule today to be seen. - Luz Elena Jung MA 04/23/25 11:27 AM [facility] 04-17-2025 History of Present illness Narrative Pt reports no concerns today. Started taking Iron, and would like to get Tdap today. Routine OB visit 25 y.o. at 28w3d. She denies cramping or abdominal pain. She denies vaginal bleeding or vaginal loss of fluid. She reports positive movements.Tolerating regular diet without emesis. No concerns today. Vitals: 04/17/25 0853 BP: 104/62 Weight: 66.8 kg (147 lb 4.8 oz) complicated by: Patient Active Problem List Diagnosis Late care History of induced History of miscarriage Back pain in Anemia in , third trimester 1. Reviewed signs of labor, preeclampsia, and danger signs. 2. kick count instructions given with kick count card provided. 3. Discussed Plan: Pain control in labor: unsure Plan for feeding infant: plans to breastfeed Patient has a breast pump. [employer] Trainer: DUARTE control: IUD 4. 28 wk labs reviewed. Patient is taking iron supplements. 5. Tdap given today. 6. Educational information given. 7. Questions answered. 8. Return 2 wks. LULU Youssef 04/17/25 0922 documented in this encounter [facility] 04-03-2025 History of Present illness Narrative Routine OB visit 24 y.o. at 26w3d. She denies cramping or abdominal pain. She denies vaginal bleeding or vaginal loss of fluid. Tolerating regular diet without emesis. She reports positive movements. No other concerns today. Vitals: 04/03/25 0850 BP: 120/64 Weight: 66.2 kg (146 lb) complicated by: Patient Active Problem List Diagnosis Late care History of induced History of miscarriage Back pain in 1. Survey ultrasound results reviewed with patient. 2. Reviewed signs of labor, preeclampsia, and additional warning signs of . 3. Encouraged FKC. Pt to call if criteria not met or for decrease of FM by 50% over 24 hr. 4. 28 wk labs discussed and ordered. Patient to get them done before next visit. Patient is RH positive. 5. Discussed childbirth and classes. 6. Discussed Tdap and information provided. Will offer after 28 weeks. 7. Educational information given. 8. Questions answered. 9. Return 2 wks. LULU Youssef 04/03/25 0910 documented in this encounter [facility] 03-06-2025 History of Present illness Narrative Routine OB visit 24 y.o. at 22w3d. She denies cramping or abdominal pain. She denies vaginal bleeding or vaginal loss of fluid. Tolerating regular diet without emesis. She reports movements are present. Patient is planning to breast feed infant. She denies hx breast surgery. Vitals: 03/06/25 0852 BP: 102/58 Weight: 63.7 kg (140 lb 6.4 oz) complicated by: Patient Active Problem List Diagnosis Late care History of induced History of miscarriage Back pain in 1. Anatomy scan was 02/18/25 and patient has appt 03/18/25 to complete survey. 2. Counseled regarding safe use of safety belt in , importance of exercise and good nutrition, avoidance of supine position and reviewed danger signs. 3. Discussed tips for back / sciatic pain. Can consider physical therapy referral. 4. Answered all questions. 5. Educational information given. 6. Return 4 wks. LULU Youssef 03/06/25 0920 documented in this encounter [facility] 02-06-2025 History of Present illness Narrative Initial visit 24 y.o. at 18w3d. Telephone OB intake and video visit with provider done on 01/15/25. Patient denies cramping or abdominal pain. She denies vaginal bleeding. She is feeling movement. Tolerating regular diet without emesis. Patient reports increased vaginal discharge with odor. Vitals: 02/06/25 0851 BP: 104/60 Weight: 61.9 kg (136 lb 6.4 oz) complicated by: Patient Active Problem List Diagnosis Late care History of induced History of miscarriage 1. Reviewed labs, u/s, EDC, and early danger signs. 2. Discussed genetic testing. Patient desires NIPS and carrier screen. 3. physical complete and pap / cultures collected including VNAP, 4. Patient declines flu shot. 5. Educational information given. 6. Questions answered. 7. Return 4 weeks. LULU Youssef 02/06/25 0924 documented in this encounter [facility] 01-15-2025 History of Present illness Narrative Patient did not login to [employer] for video visit portion of visit, not seen by provider. LULU Youssef 01/15/25 1445 OBI-LMP--09-30. Late pn care.Pt needs pap, Pt declined genetic testing, declined FLU vaccine. Pt has HX of induced at 18w in aug 2024, HX of molar in March 2024.Pt stopped vaping in October 2024. documented in this encounter [facility] 08-09-2024 History of Present illness Narrative Subjective No chief complaint on file. Corinne Sim is a 24 y.o. at 15w0d with a working estimated date of delivery of 01/31/2025, by Last Menstrual Period who presents for a routine visit. She denies vaginal bleeding, leakage of fluid, decreased movements, or contractions. OB History Para Term AB Living 3 1 1 1 1 SAB IAB Ectopic Multiple Live Births 1 1 # Outcome Date GA Lbr Blair/2nd Weight Sex Type Anes PTL Lv 3 Current 2 Term 10/24/21 37w0d 7 lb 2 oz M Vag-Spont N SERJIO 1 SAB Obstetric Comments Childbirth 11/03 Her is complicated by: nausea and vomiting during The following portions of the chart were reviewed this encounter and updated as appropriate: Objective Physical Exam weight: 129 lb Expected Total Weight Gain: 25 lb-35 lb Pregravid BMI: 22.47 BP: 102/60 Urine protein Urine glucose Labs: reviewed Imaging Assessment/Plan Diagnoses and all orders for this visit: Encounter for supervision of other normal , second trimester Nausea and vomiting during prior to 22 weeks gestation - ondansetron ODT (Zofran-ODT) 8 MG disintegrating tablet; Take 1 tablet (8 mg) by mouth every 8 (eight) hours if needed for nausea or vomiting Continue vitamin. Labs reviewed. Rhogam A+ positive GTT at 28 weeks Follow up in 2 weeks for a routine visit. documented in this encounter [facility] 07-25-2024 Telephone encounter Note LMOM for patient to call office to discuss her OB coverage. Her states she is inelgible, She may want to call her insurance to discuss with them, she could be self pay or apply for medicaid if needed. [facility] 07-25-2024 Miscellaneous Notes LMOM for patient to call office to discuss her OB coverage. Her states she is inelgible, She may want to call her insurance to discuss with them, she could be self pay or apply for medicaid if needed. documented in this encounter [facility] 07-12-2024 History of Present illness Narrative Subjective No chief complaint on file. Corinne Sim is a 24 y.o. at 11w0d with a working estimated date of delivery of 01/31/2025, by Last Menstrual Period who presents for a routine visit. She denies vaginal bleeding, leakage of fluid, decreased movements, and contractions. OB History Para Term AB Living 3 1 1 1 1 SAB IAB Ectopic Multiple Live Births 1 1 # Outcome Date GA Lbr Blair/2nd Weight Sex Type Anes PTL Lv 3 Current 2 Term 10/24/21 37w0d 7 lb 2 oz M Vag-Spont N SERJIO 1 SAB Obstetric Comments Childbirth 11/03 Her is complicated by: weight loss of 7 lbs The following portions of the chart were reviewed this encounter and updated as appropriate: Objective Physical Exam weight: 128 lb, Pregravid BMI: 22.47 Expected Total Weight Gain: 25 lb-35 lb BP: 110/70 Labs Imaging Assessment/Plan Diagnoses and all orders for this visit: Nausea and vomiting during prior to 22 weeks gestation - ondansetron ODT (Zofran-ODT) 8 MG disintegrating tablet; Take 1 tablet (8 mg) by mouth every 8 (eight) hours if needed for nausea or vomiting Encounter for supervision of other normal , first trimester Urine protein-negative Urine glucose-negative Patient states she's not very hungry because she is nauseated. She is taking unisom and B6 at night and states it doesn't really help. Zofran 8 mg ODT sent to pharmacy Patient states she knows she is anemic from labs that Dr Shraddha bella so she is taking iron supplements also. Continue vitamin. Labs reviewed. Order placed for anatomy scan at 20 weeks. Follow up in 4 weeks for a routine visit. documented in this encounter [facility] 07-03-2024 Telephone encounter Note Pt calling returning call, but do not see an outgoing call to be able to give info to patient. Please try calling her again. [phone] [facility] 07-03-2024 Miscellaneous Notes Pt calling returning call, but do not see an outgoing call to be able to give info to patient. Please try calling her again. [phone] documented in this encounter [facility] 06-18-2024 History of Present illness Narrative Subjective Corinne Sim is a 24 y.o. at 7w4d with a working estimated date of delivery of 01/31/2025, by Last Menstrual Period who presents for an initial visit. This is planned. Patient Care Team: Anne Llanes MD as PCP - General (Family Medicine) OB History Para Term AB Living 3 1 1 1 1 SAB IAB Ectopic Multiple Live Births 1 1 # Outcome Date GA Lbr Blair/2nd Weight Sex Type Anes PTL Lv 3 Current 2 Term 10/24/21 37w0d 7 lb 2 oz M Vag-Spont N SERJIO 1 SAB Obstetric Comments Childbirth 11/03 Her is complicated by: recent miscarriage in May. Patient referred by Gynecology History Last Pap The following portions of the chart were reviewed this encounter and updated as appropriate: Review of Systems Negative except Objective Physical Exam weight: 135 lb Expected Total Weight Gain: 25 lb-35 lb Pregravid BMI: 22.47 Heart Rate: 139 Urine protein-negative Urine glucose-negative Labs Assessment/Plan Diagnoses and all orders for this visit: examination or test, positive result Amenorrhea - POCT , urine Blue education folder given. Patient educated on safe medication list. Genetic testing information given. Discussed the do's and don'ts in the blue folder. We discussed labs and what we draw and what we are testing for. Patient is also informed that we do a urine drug test. Patient also given office phone number and [facility] number to call in case of an emergency or after hours needs. PVU and all questions answered. We did discuss place of delivery. Patient should plan to go to [facility] for all services unless an emergency and they need to go to the closest ER. We can make other arrangements possibly if patient would like to deliver at another facility but I did explain I am now at [facility] 100% of the time and would like to do all deliveries there. documented in this encounter [facility] Healthcare Evaluation note Diagnosis examination or test, positive result- Primary Amenorrhea Absence of menstruation documented in this encounter [facility] HealthcareEvaluation note* Diagnosis Nausea and vomiting during prior to 22 weeks gestation- Primary Encounter for supervision of other normal , first trimester documented in this encounter [facility] HealthcareEvaluation note* Diagnosis Encounter for supervision of other normal , second trimester- Primary Nausea and vomiting during prior to 22 weeks gestation related condition in second trimester documented in this encounter [facility] HealthcareEvaluation note* Diagnosis Second trimester - Primary state, incidental documented in this encounter [facility]* Diagnosis Second trimester - Primary state, incidental Cervical smear, as part of routine gynecological examination Screening for malignant neoplasm of the cervix Vaginal odor Unspecified symptom associated with female genital organs Vaginal discharge Leukorrhea, not specified as infective [facility] Diagnosis care, second trimester- Primary documented in this encounter [facility]* Diagnosis care, third trimester- Primary documented in this encounter [facility] note* Diagnosis Anemia in , third trimester- Primary documented in this encounter [facility] note* Diagnosis care, third trimester- Primary Vasovagal episode Syncope and collapse documented in this encounter [facility]* Diagnosis care, third trimester- Primary documented in this encounter [facility] note* Diagnosis care, third trimester- Primary Anemia in , third trimester documented in this encounter [facility] note* Diagnosis 32 weeks gestation of - Primary Anemia in , third trimester Anemia in , third trimester documented in this encounter [facility] note* Diagnosis Anemia complicating , third trimester- Primary Anemia in , third trimester documented in this encounter [facility] note* Diagnosis Anemia complicating , third trimester Anemia in , third trimester documented in this encounter [facility] note* Diagnosis care, third trimester- Primary Anemia in , third trimester Anemia in , third trimester documented in this encounter [facility] note* Diagnosis Anemia in , third trimester- Primary Anemia in , third trimester documented in this encounter [facility] note* Diagnosis Anemia in , third trimester- Primary Anemia in , third trimester documented in this encounter [facility] note* Diagnosis Anemia in , third trimester- Primary Anemia in , third trimester documented in this encounter [facility] note* Diagnosis Anemia in , third trimester- Primary Anemia in , third trimester documented in this encounter [facility] note* Diagnosis Anemia in , third trimester Anemia in , third trimester documented in this encounter [facility] note* Diagnosis Anemia in , third trimester- Primary Anemia in , third trimester documented in this encounter [facility] note* Diagnosis Third trimester - Primary state, incidental Anemia in , third trimester documented in this encounter [facility] note* Diagnosis Uterine size-date discrepancy in third trimester- Primary care, third trimester Anemia in , third trimester documented in this encounter [facility] note* Diagnosis 38 weeks gestation of - Primary Anemia in , third trimester Anemia in , third trimester documented in this encounter [facility] note* Diagnosis 39 weeks gestation of - Primary Anemia in , third trimester documented in this encounter [facility] note* Diagnosis Encounter for elective induction of labor- Primary Anemia in , third trimester Benign gestational thrombocytopenia in third trimester Anemia in , third trimester documented in this encounter [facility] note* Diagnosis care following vaginal delivery- Primary Anemia in , third trimester Lactating mother care and examination of lactating mother Hemorrhoids, unspecified hemorrhoid type anxiety Anemia in , third trimester documented in this encounter [facility] note* Diagnosis care and examination- Primary Lactating mother care and examination of lactating mother documented in this encounter [facility] SystemInstructionsNot on filedocumented in this encounter [facility] Attachments The following attachments cannot be sent through Care Everywhere. * Cell-Free DNA Screening ([place]) [facility]* Attachments The following attachments cannot be sent through Care Everywhere. * Sciatica Exercises ([place]es) [facility]* Attachments The following attachments cannot be sent through Care Everywhere. * The Sixth Month ([place]es) [facility] SystemInstructionsNot on file [facility] SystemInstructionsNot on file documented in this [facility]Pro[facility] SystemInstructionsNot on file documented in this [facility] SystemInst[facility]* Attachments The following attachments cannot be sent through Care Everywhere. * Good food sources of iron ([place]es) * Your baby's movement before ([place]) documented in [facility] SystemInstructions* Attachments The following attachments cannot be sent through Care Everywhere. * Good food sources of iron ([place]es) * The Seventh Month ([place]es) documented in this [facility] SystemInstructionsNot on file documented in this encounter[facility] SystemInstructionsNot on file documented in this [facility] SystemInstructions* Attachments The following attachments cannot be sent through Care Everywhere. * Group B strep screening ([place]) * How to tell when labor starts ([place]) documented in this [facility] SystemInstructionsNot on file documented in this [facility] SystemInstructionsNot on file documented in this encounterMount [facility] SystemInstructions* Attachments The following attachments cannot be sent through Care Everywhere. * control after having a baby ([place]) * Common problems ([place]) documented in this [facility] SystemInstructionsNot on file documented in this [facility] SystemReason for referral (narrative)* Misc (Routine) - Pending Review Specialty Diagnoses / Procedures Referred By Tonya gonzales Referred To Contact Procedures Discharge Follow-Up Genevieve Lui APRN-CNM [id number] [place] [address] Phone: tel: fax: Referral ID Status Reason Start Date Expiration Date V isits Requested Visits Authorized [id number] Pending Review 07/04/2025 07/04/2026 1 1 * Misc (Routine) - Pending Review Specialty Diagnoses / Procedures Referred By Tonya gonzales Referred To Contact Procedures [place]/ feeding on discharge- Breastmilk Genevieve Lui APRN-CNM [id number] [place] [address] Phone: tel: fax: Referral ID Status Reason Start Date Expiration Date V isits Requested Visits Authorized [id number] Pending Review 07/04/2025 07/04/2026 1 1 * Misc (Routine) - Pending Review Specialty Diagnoses / Procedures Referred By Tonya gonzales Referred To Contact Procedures Adult diet Genevieve Lui APRN-CNM [id number] [place] [address] Phone: tel: fax: Referral ID Status Reason Start Date Expiration Date V isits Requested Visits Authorized [id number] Pending Review 07/04/2025 07/04/2026 1 1 [facility] N[facility]* Consultation (Routine) - Pending Review Specialty Diagnoses / Procedures Referred By Tonya gonzales Referred To Contact Hematology Diagnoses Anemia complicating , third trimester Nicolasa Pierre, SUPERVISOR GLYC[employer]NEWSPAPER STUFFER [address] [place] [address] Phone: tel: fax: [facility] [address] [place] [address] Phone: tel: fax: Referral ID Status Reason Start Date Expiration Date Visits Requested Visits Authorized [id number] Pending Review Specialty Services Required 05/23/2025 05/23/2026 1 1 [facility] Summary Purpose Family History No Family History Records FoundNo Family History Records FoundNo Family History Records FoundNo Family History Records FoundNo Family History Records FoundNo Family History Records FoundNo Family History Records FoundNo Family History Records FoundNo Family History Records Found Advance Directives Date Activated Date Inactivated Comments 07/03/2025 5:56 AM 07/04/2025 7:27 PM Date Activated Date Inactivated Comments 07/03/2025 5:56 AM 07/04/2025 7:27 PM Reason for Referral Specialty Diagnoses / Procedures Referred By Contkj t Referred To Contact Obstetrics and Gynecology Diagnoses Amenorrhea examination or test, positive result Procedures [place] OFFICE/OUTPATIENT NEW HIGH MDM 60 MINUTES Rylee Wood, CN [address] [place] [address] Rylee Wood, CNM [address] [place] [address] Referral ID Status Reason Start Date Expiration Date V isits Requested Visits Authorized [id number] Denied Specialty Services Required 07/18/2024 01/14/2025 1 0 Additional Source Comments INFORMATION SOURCE (unrecogn ized section and content) DATE CREATED AUTHOR 05/04/2018 [facility] DATE CREATED AUTHOR AUTHOR'S ORGANIZ ATION 05/10/2018 [facility] DATE CREATED AUTHOR AUTHOR'S ORGANIZ ATION 03/25/2022 [facility] dical Specialist DATE CREATED AUTHOR AUTHOR'S ORGANIZ ATION 04/13/2022 [facility] DATE CREATED AUTHOR AUTHOR'S ORGANIZ ATION 08/13/2024 [facility] dical Specialists EPIC DATE CREATED AUTHOR AUTHOR'S ORGANIZ ATION 12/05/2024 [facility] dical Specialists EPIC DATE CREATED AUTHOR AUTHOR'S ORGANIZ ATION 06/01/2025 [facility] DATE CREATED AUTHOR AUTHOR'S ORGANIZ ATION 07/06/2025 [facility] DATE CREATED AUTHOR AUTHOR'S ORGANIZ ATION 08/19/2025 [facility] Care Teams (unrecognized sec tion and content) Province Archivist Relationship Specialty Start Date End Date Anne Llanes MD [address] [place] [address] PCP - General Family Medicine 03/22/23 Province Archivist Relationship Specialty Start Date End Date Anne Llanes MD [address] [place] [address] PCP - General Family Medicine 03/22/23 Province Archivist Relationship Specialty Start Date End Date Anne Llanes MD [address] [place] [address] PCP - General Family Medicine 03/22/23 Province Archivist Relationship Specialty Start Date End Date Anne Llanes MD [address] [place] [address] PCP - General Family Medicine 03/22/23 Province Archivist Relationship Specialty Start Date End Date Anne Llanes MD [address] [place] [address] PCP - General Family Medicine 03/22/23 Province Archivist Relationship Specialty Start Date End Date Anne Llanes MD [address] [place] [address] PCP - General Family Medicine 10/07/23 Province Archivist Relationship Specialty Start Date End Date Anne Llanes MD [address] [place] [address] PCP - General Family Medicine 10/07/23 Province Archivist Relationship Specialty Start Date End Date Anne Llanes MD [address] [place] [address] PCP - General Family Medicine 10/07/23 Province Archivist Relationship Specialty Start Date End Date Anne Llanes MD [address] [place] [address] PCP - General Family Medicine 10/07/23 Province Archivist Relationship Specialty Start Date End Date Wonderly, Anne Lao MD [address] [place] [address] PCP - General Family Medicine 10/07/23 Province Archivist Relationship Specialty Start Date End Date Wonderly, Anne Lao MD [address] [place] [address] PCP - General Family Medicine 10/07/23 Province Archivist Relationship Specialty Start Date End Date Wonderly, Anne Lao MD [address] [place] [address] PCP - General Family Medicine 10/07/23 Province Archivist Relationship Specialty Start Date End Date Wonderly, Anne Lao MD [address] [place] [address] PCP - General Family Medicine 10/07/23 Province Archivist Relationship Specialty Start Date End Date Wonderly, Anne Lao MD PCP - General Family Medicine 10/07/23 Province Archivist Relationship Specialty Start Date End Date Wonderly, Anne Lao MD [address] [place] [address] PCP - General Family Medicine 10/07/23 Province Archivist Relationship Specialty Start Date End Date Wonderly, Anne Lao MD [address] [place] [address] PCP - General Family Medicine 10/07/23 Province Archivist Relationship Specialty Start Date End Date Wonderly, Anne Lao MD [address] [place] [address] PCP - General Family Medicine 10/07/23 Province Archivist Relationship Specialty Start Date End Date Wonderly, Anne Lao MD [address] [place] [address] PCP - General Family Medicine 10/07/23 Province Archivist Relationship Specialty Start Date End Date Anne Llanes MD [address] [place] [address] PCP - General Family Medicine 10/07/23 Province Archivist Relationship Specialty Start Date End Date Anne Llanes MD [address] [place] [address] PCP - General Family Medicine 10/07/23 Province Archivist Relationship Specialty Start Date End Date Anne Llanes MD [address] [place] [address] PCP - General Family Medicine 10/07/23 Province Archivist Relationship Specialty Start Date End Date Anne Llanes MD [address] [facility] [address] [place] [address] PCP - General Family Medicine 10/07/23 Province Archivist Relationship Specialty Start Date End Date Anne Llanes MD [address] [facility] [place] [address] PCP - General Family Medicine 10/07/23 Province Archivist Relationship Specialty Start Date End Date Anne Llanes MD [address] [place] [address] PCP - General Family Medicine 10/07/23 Province Archivist Relationship Specialty Start Date End Date Anne Llanes MD [address] [facility] [place] [address] PCP - General Family Medicine 10/07/23 Province Archivist Relationship Specialty Start Date End Date Anne Llanes MD [address] [place] [address] PCP - General Family Medicine 10/07/23 Province Archivist Relationship Specialty Start Date End Date Anne Llanes MD [address] [place] [address] PCP - General Family Medicine 10/07/23 Province Archivist Relationship Specialty Start Date End Date Anne Llanes MD [address] [place] [address] PCP - General Family Medicine 10/07/23 Province Archivist Relationship Specialty Start Date End Date Anne Llanes MD [address] [place] [address] PCP - General Family Medicine 10/07/23 Province Archivist Relationship Specialty Start Date End Date Anne Llanes MD [address] [place] [address] PCP - General Family Medicine 10/07/23 Province Archivist Relationship Specialty Start Date End Date Anne Llanes MD PCP - General Family Medicine 10/07/23 Reason for Visit (unrecogniz ed section and content) Reason Comments Outpatient Infusion Venofer Specialty Diagnoses / Procedures Referred By Tonya t Referred To Contact Diagnoses Anemia in , third trimester Procedures [place] IRON SUCROSE INJECTION Nicolasa Pierre, SUPERVISOR [employer]SP[employer]ER STUFFER [address] [place] [address] Phone: tel: fax: Nicolasa Pierre, SUPERVISOR GL[employer]NEWSP[employer]ER STUFFER [address] [place] [address] Phone: tel: fax: Referral ID Status Reason Start Date Expiration Date V isits Requested Visits Authorized [id number] Authorized 05/23/2025 11/19/2025 5 5 Reason Comments Outpatient Infusion Reason Onset Date Comments ob coverage 07/25/2024 Reason Comments Initial Visit OBI Reason Comments Initial Visit Reason Comments Routine Visit Pt is 22w3d today . She is here for a routine appt. She is having lower back pain that will radiate down the back of her leg. She is also having frequent urination. Reason Comments Routine Visit Reason Comments Routine Visit Patient is asaf tly 34W&2D Reason Comments Outpatient Infusion Venofer Reason Comments Outpatient Infusion venofer Reason Comments Routine Visit Patient is 38w&3d Reason Comments Scheduled Induction Pt to unit for sched uled induction. Denies CHURCH, epigastric pain, visual disturbances, n/v, bleeding, lof. +fm Specialty Diagnoses / Procedures Referred By Tonya gonzales Referred To Contact Diagnoses Encounter for elective induction of labor Rosie Clark APRN-TRENA [address] [facility], [address] [place] [address] Phone: tel: fax: Referral ID Status Reason Start Date Expiration Date Visits Re quested Visits Authorized [id number] 1 1 Reason Comments Care Patient presents for their two week visit. Reason Comments Care Patient presents for their 6 week visit. Scheduled Active and Recently Administ ered Medications (unrecognized section and content) Medication Order 07/02/2025 07/03/2025 07/04/2025 docusate sodium (COLACE) capsule 100 mg 100 mg, oral, 2 times daily, First dose on Tue07/03/25 at 1245, , Look-alike/sound-alike medication - verify indication for use. 1245 (Not Given - Provider: Leah Batres RN - Reason: Other - Comment: will start tomorrow morning)2013 (Given - Provider: Ayleen Bond RN) 901 (Given - Provider: Elana Davis RN) nalbuphine (NUBAIN) injection 10 mg 10 mg, intravenous, Once, On Tue07/03/25 at 1045, For 1 dose, Look-alike/sound-alike medication - verify indication for use. 1045 (Not Given - Provider: Leah Batres RN - Reason: Other - Comment: PT RECEIVED EPIDURAL PRIOR TO NUBAIN) PNV,calcium 58-vuia-ikcgo acid ( PLUS) 27 mg iron- 1 mg tablet 1 tablet 1 tablet, oral, Daily, First dose on Tue07/03/25 at 1245, 1245 (Not Given - Provider: Leah Batres RN - Reason: Other - Comment: will start tomorrow) 0900 (Not Given - Provider: Elana Davis RN - Reason: Patient/family refused) sodium chloride 0.9 % flush 3 mL 3 mL, intravenous, Every 12 hours scheduled, First dose on Tue07/03/25 at 1045, 1045 (Not Given - Provider: Leah Batres RN - Reason: IV infusing)2310 (Given - Provider: Ayleen Bond RN) 0900 (Not Given - Provider: Elana Davis RN - Reason: Loss of IV access) sodium chloride 0.9 % flush 3 mL 3 mL, intravenous, Every 8 hours, First dose on Tue07/03/25 at 1245, , Flush peripheral line per protocol 1245 (Not Given - Provider: Leah Batres RN - Reason: IV infusing)2045 (Not Given - Provider: Ayleen Bond RN - Reason: Other) 0445 (Not Given - Provider: Ayleen Bond RN - Reason: Other)1245 (Not Given - Provider: Elana Davis RN - Reason: Loss of IV access) Continuous Medication Order 07/02/2025 07/03/2025 07/04/2025 lactated ringers infusion (CANCELED) 125 mL/hr, intravenous, Continuous, Starting on Tue07/03/25 at 0600, For 1 day, L&D Pre-Delivery 0635 (New Bag - Provider: Ayleen Bond RN)1024 (Rate/Dose Change - Provider: Leah Batres RN - Comment: EPIDURAL PREP)1101 (New Bag - Provider: Leah Batres RN - Comment: [Order ends at this time. Document the following action when infusion is complete: Stop Bag])1118 (Rate/Dose Verify - Provider: Leah Batres RN)1247 (Stop Bag - Provider: Leah Batres RN) oxytocin (PITOCIN) infusion 30 units/500 mL in lactated ringers (0.06 units/mL premix) (CANCELED) 1-20 richy-units/min (1-20 mL/hr), intravenous, Titrated, Starting on Tue07/03/25 at 0645, L&D Pre-Delivery, Administer via programmable infusion pump. Starting rate is 1 milliunit/minute.Titrate by 2 milliunit/min every 30 minutes until 5 or less contractions occur in a 10 minute segment, averaged over a 30 minute period. Discontinue infusion for the following abnormal FHR tracings: -Category 3 FHR -Category 2 FHR with significant decelerations for greater than 50% of contractions, lasting longer than 60 minutes despite conservative therapeutic interventions -Minimal variability without accelerations that persist for 60 minutes despite conservative therapeutic interventions -Prolonged deceleration not resolved with conservative therapeutic interventions *Tachysystole is defined by the NICHD as more than five contractions in ten minutes, averaged over a 30-minute window., When Tachysystole is present while oxytocin is infusing, and heart rate (FHR) tracing is: Category 1: 1. Perform a maternal position change and give IV bolus of Lactated Ringers 500mL at a rate of 968 mLs/hour for a max of 1,000 mLs, observe for ten minutes. 2. If tachysystole continues, then decrease oxytocin rate by half, observe for 20 minutes, and notify provider. 3. If tachysystole does not resolve, discontinue oxytocin and notify provider. Category 2 with moderate variability and no significant decelerations: 1. Decrease oxytocin rate by half, change maternal position, give IV bolus of Lactated Ringers 500mL at a rate of 968 mLs/hour for a max of 1000 mLs, observe for 20 minutes, and notify provider. 2. If tachysystole does not resolve, discontinue oxytocin and notify provider. Category 2 with significant decelerations or Category 3: 1. Discontinue oxytocin, change maternal position, give IV bolus of Lactated Ringers 500mL at a rate of 968 mLs/hour for a max of 1000 mLs, administer oxygen via non-rebreather mask at 10L, and notify provider. If after at least a 30-minute period of observation, tachysystole resolves and pre-oxytocin checklist criteria is met, may restart oxytocin infusion at: Half of last infusing rate if oxytocin is off for less than 40 minutes. Beginning rate if oxytocin is off for greater than 40 minutes. [Maximum dose 20 milliunits/min unless specifically ordered otherwise by provider]. 1 mL/hour = 1 richy-unit/min 0700 (New Bag - Provider: Ayleen Bond RN)0730 (Rate/Dose Change - Provider: Leah Batres RN)0730 (Rate/Dose Verify - Provider: Leah Batres RN)0800 (Rate/Dose Change - Provider: Leah Batres RN)0800 (Rate/Dose Verify - Provider: Leah Batres RN)0830 (Rate/Dose Change - Provider: Leah Batres RN)0830 (Rate/Dose Verify - Provider: Leah Batres RN)0900 (Rate/Dose Verify - Provider: Leah Batres RN)0931 (Rate/Dose Change - Provider: Leah Batres RN)0931 (Rate/Dose Verify - Provider: Leah Batres RN)1118 (Rate/Dose Verify - Provider: Leah Batres RN)1145 (Rate/Dose Change - Provider: Leah Batres RN)1215 (Stop Bag - Provider: Leah Batres RN - Comment: [Order ends at this time. Document the following action when infusion is complete: Stop Bag]) PRN Medication Order 07/02/2025 07/03/2025 07/04/2025 acetaminophen (TYLENOL) tablet 650 mg 650 mg, oral, Every 4 hours PRN, mild pain - pain scale 1-3, Starting on Tue07/03/25 at 1225, 2013 (Given - Provider: Ayleen Bond RN) 0336 (Given - Provider: Ayleen Bond RN) benzocaine-menthoL (DERMOPLAST) topical spray 1 Application 1 Application, topical, As needed, pain, perineum discomfort, Starting on Tue07/03/25 at 1223, , May keep at bedside 1526 (Given - Provider: Leah Batres RN) bisacodyL (DULCOLAX) suppository 10 mg 10 mg, rectal, Once as needed, constipation, no relief from docusate or senna/docusate, Starting on Rachana 07/04/25 at 0000, For 1 dose, , Start 2nd day Look-alike/sound-alike medication - verify indication for use. carboprost (HEMABATE) injection 250 mcg 250 mcg, intramuscular, Once as needed, hemorrhage management, Starting on Tue07/03/25 at 1223, For 1 dose, , Administer as directed by the provider for hemorrhage management. DO NOT ADMINISTER IV. Contraindicated if patient has a history of asthma or cardiovascular disease. hydrocortisone (ANUSOL-HC) 2.5 % rectal cream 1 Application 1 Application, rectal, As needed, hemorrhoids, Starting on Tue07/03/25 at 1223, , May keep at bedside, Indications: hemorrhoids ibuprofen (MOTRIN) tablet 800 mg 800 mg, oral, Every 8 hours PRN, cramping, Starting on Tue07/03/25 at 1225, , Look-alike/sound-alike medication - verify indication for use. Take/Give with food or milk. 1526 (Given - Provider: Leah Batres RN)2310 (Given - Provider: Ayleen Bond RN) 0814 (Given - Provider: Elana Davis RN) lactated ringers infusion (CANCELED) 999 mL/hr, intravenous, Continuous PRN, hemorrhage treatment, Starting on Tue07/03/25 at 0557, For 1 day, , Per infusion pump. For hemorrhage treatment, administer as directed by provider for Hemorrhage management 1054 (New Bag - Provider: Leah Batres RN - Comment: PREPARATION FOR EPIDURAL)1100 (Stop Bag - Provider: Leah Batres RN - Comment: [Order ends at this time. Document the following action when infusion is complete: Stop Bag]) lactated ringers infusion(Linked Group 1) 83 mL/hr, intravenous, Continuous PRN, post-delivery hemostasis, Starting on Tue07/03/25 at 1035, For 1 day, , Administer for 4 hours. Administer with Oxytocin bolus and infusion 1247 (New Bag - Provider: Leah Batres RN)1323 (Rate/Dose Verify - Provider: Leah Batres RN)1606 (Stop Bag - Provider: Leah Batres RN - Comment: [Order ends at this time. Document the following action when infusion is complete: Stop Bag]) lactated ringers infusion 999 mL/hr, intravenous, Continuous PRN, hemorrhage treatment, Starting on Tue07/03/25 at 1223, For 1 day, , Per infusion pump. For hemorrhage treatment, administer as directed by provider methylergonovine (METHERGINE) injection 200 mcg 200 mcg, intramuscular, Once as needed, hemorrhage management, Starting on Tue07/03/25 at 1223, For 1 dose, , Administer as directed by the provider for hemorrhage treatment. DO NOT ADMINISTER IV. Contraindicated if patient has a sensitivity or Systolic BP greater than 140 or Diastolic BP greater than 90. Look-alike/sound-alike medication - verify indication for use. miSOPROStoL (CYTOTEC) tablet 800 mcg 800 mcg, sublingual, Once as needed, hemorrhage management, Starting on Tue07/03/25 at 1223, For 1 dose, , Administer as directed by the provider for hemorrhage management.Use only if Hypertensive and Asthmatic Look-alike/sound-alike medication - verify indication for use. modified lanolin (LANSINOH) 100 % cream cream 1 Application 1 Application, topical, As needed, sore/cracked nipples, Starting on Tue07/03/25 at 1223, , May keep at bedside 1526 (Given - Provider: Leah Batres RN) oxytocin (PITOCIN) bolus from bag solution 10 Units 10 Units, intravenous, Administer over 30 Minutes, Once as needed, post-delivery hemostasis, Starting on Tue07/03/25 at 1035, For 1 dose, , Administer via programmable pump with lactated ringers solution oxytocin (PITOCIN) injection 10 Units 10 Units, intramuscular, Once as needed, hemorrhage treatment, Starting on Tue07/03/25 at 0557, For 1 dose, , administer as directed by provider for Hemorrhage management oxytocin (PITOCIN) injection 10 Units 10 Units, intramuscular, Once as needed, hemorrhage management, Starting on Tue07/03/25 at 1223, For 1 dose, Administer as directed by provider. sodium chloride 0.9 % flush 3 mL 3 mL, intravenous, As needed, line care, before and after each intermittent use, Starting on Tue07/03/25 at 1035, sodium chloride 0.9 % flush 3 mL 3 mL, intravenous, As needed, line care, to maintain patency, Starting on Tue07/03/25 at 1223, tranexamic acid (CYKLOKAPRON) injection 1,000 mg 1,000 mg, intravenous, Administer over 10 Minutes, As needed, hemostasis/ hemorrhage management, Starting on Tue07/03/25 at 1223, For 2 doses, , As directed by the provider for hemostasis/ hemorrhage management. Give slow IV push over 10 minutes, may repeat one time 30 minutes after initial dose. harjinder Marshall (PREPARATION H TOTABLE) pad 1 Application 1 Application, topical, As needed, hemorrhoids, Starting on Tue07/03/25 at 1223, , May keep at bedside 1526 (Given - Provider: Leah Batres RN) Linked Groups Order Group 1: oxytocin (PITOCIN) infusion 30 units/500 mL in lactated ringers (0.06 units/mL premix) (CANCELED) 42 richy-units/min (42 mL/hr), intravenous, Continuous PRN, for post-delivery hemostasis, Starting on Tue07/03/25 at 1035, , Administer for 4 hours. Administer via programmable pump with lactated ringers solution 1 mL/hour = 1 richy-unit/min And lactated ringers infusionJump to med 83 mL/hr, intravenous, Continuous PRN, post-delivery hemostasis, Starting on Tue07/03/25 at 1035, For 1 day, , Administer for 4 hours. Administer with Oxytocin bolus and infusion FOR RECORDS PERTAINING TO PATIENTS WHO ARE OR HAVE BEEN ENROLLED IN A CHEMICAL DEPENDENCY/SUBSTANCEABUSE PROGRAM, SOME INFORMATION MAY BE OMITTED. This clinical summary was aggregated from multiple sources. Caution should be exercised in using it in the provision of clinical care. This summary normalizes information from multiple sources, and as a consequence, information in this document may materially change the coding, format and clinical context of patient data. In addition, data may be omitted in some cases. CLINICAL DECISIONS SHOULD BE BASED ON THE PRIMARY CLINICAL RECORDS. [employer] provides no warranty or guarantee of the accuracy or completeness of information in this document.
[2025-08-28] MEDS: LIDOCAINE 2% JELLY 10 ML UR (16:19)
[2025-08-28] MEDS: KETOROLAC TROMETHAMINE 30 MG/ML VIAL IM (16:24)
--- NOTE | 2025-08-28 16:24 | ED_ITS ---
Documented by User: JUAN Naik 09/01/25 22:08 HPI HPI - General Adult General Chief complaint: Abdominal Pain Stated complaint: BOWEL ISSUES Time Seen by Provider: 08/28/25 16:02 Source: patient Mode of arrival: walk-in Limitations: no limitations History of Present Illness HPI narrative: Patient is a 25-year-old female who is 2 months with her second child that presents the emergency department with complaints of rectal pain with attempting to have a bowel movement. She states that 3 days ago she had and abnormally large bowel movement and thinks it caused a fissure. She states she looked in the mirror and could see one. She does have a history of a hemorrhoid since her , but this has not bothered her. She has been compliant with taking her stool softener . She states yesterday she tried to have a bowel movement but it was so painful to try and push that she was unable to do it. She states she really has to go but is scared secondary to the pain. She has tried castor oil, Preparation H, hydrocortisone cream, ice, heat, sitz bath but the rectal pain is burning and persistent even when sitting/sleeping. She denies any abdominal pain. Related Data Home Medications ?Medication ?Instructions ?Recorded ?Confirmed bupropion HCl 75 mg tablet 75 mg PO DAILY 04/04/24 Previous Rx's ?Medication ?Instructions ?Recorded doxycycline hyclate 100 mg capsule 100 mg PO BID 7 day s #14 caps 04/04/24 ibuprofen 800 mg tablet 800 mg PO Q8H PRN pain 14 da ys #40 04/04/24 tabs Allergies Allergy/AdvReac Type Severity Reaction Status Date / Time No Known Drug Allergies Allergy Verified 08/28/25 15:57 Review of Systems ROS Status of ROS 10 or more systems reviewed and unremark able except as noted in history and below [facility] Medical History (Updated 08/28/25 @ 16:54 by JUAN Naik) Scoliosis ?M41.9 - Scoliosis, unspecified (ICD-10) Missed ?O02.1 - Missed (ICD-10) Depression ?F32.A - Depression, unspecified (ICD-10) Surgical History (Updated 04/04/24 @ 06:43 by Rebecca Sheth RN) No history of previous surgery Family History (Updated 04/04/24 @ 06:43 by Rebecca Sheth RN) Other Family history of cancer Family history of hypertension Social History (Updated 04/04/24 @ 06:45 by Rebecca Sheth RN) Within the past year, how often did you have a drink containing alcohol: 2-3 times a week Within the past year, how many standard drinks containing alcohol did you have on a typical day: 1 or 2 Within the past year, how often did you have six or more drinks on one occasion: less than monthly Total score: 1 Score interpretation: A score of 3 or more indicates drinking is likely to affect patient's safety. Do you use any of these nicotine containing products: vaping products Second hand tobacco smoke exposure: No Non-prescribed substance use: denies use Previous occupational history: [employer]- [employer] Known occupational exposures/hazards: No Highest level of school completed/degree received: high school graduate Little interest or pleasure in doing things: not at all Feeling down, depressed, or hopeless: not at all Exam Narrative Exam Narrative: General: No distress, age-appropriate Skin: Warm, dry, no pallor. No rash. Head: Normocephalic, atraumatic. Neck: Supple, non-tender. Eye: Pupils are equal, round and EOMI. No scleral icterus. Ears, Nose, Mouth, and Throat: No nasal mucosal hypertrophy. Oral mucosa is moist, no posterior oropharynx erythema, uvula is mid-line Cardiovascular: Regular Rate and Rhythm without murmur, gallop or rub. Respiratory: No accessory muscle use or respiratory distress. Lungs are clear to auscultation, no wheezing, rales or rhonchi Musculoskeletal: Full ROM of all extremities, no calf or popliteal tenderness GI: Abdomen is soft, non-distended, non tender to palpation. No masses appreciated. No rebound, guarding, or rigidity noted. Neurological: A&O x4. No cranial nerve dysfunction observed. No truncal ataxia. Moves all extremities. Sensation intact. Psychiatric: Cooperative and interactive. Normal mood and affect. Constitutional Vital Signs, click to edit/add: Last Vital Signs Temp 98 F 08/28/25 15:57 Pulse 77 08/28/25 15:57 Resp 16 08/28/25 15:57 BP 119/83 08/28/25 15:57 Pulse Ox 100 08/28/25 15:57 O2 Del Method Room Air 08/28/25 15:57 GI Rectal Exam - Female: visual inspection normal, normal sphincter tone and internal hemorrhoid(s) Other: No anal fissure on exam, internal hemorrhoid at approximately 6 o clock position, tender with palpation, no gross blood on ANGELICA. Course Vital Signs Vital signs: Vital Signs Temperature 98 F 08/28/25 15:57 Pulse Rate 77 08/28/25 15:57 Respiratory Rate 16 08/28/25 15:57 Blood Pressure 119/83 08/28/25 15:57 Pulse Oximetry 100 08/28/25 15:57 Oxygen Delivery Method Room Air 08/28/25 15:57 Temperature 98 F 08/28/25 15:57 Pulse Rate 77 08/28/25 15:57 Respiratory Rate 16 08/28/25 15:57 Blood Pressure 119/83 08/28/25 15:57 Pulse Oximetry 100 08/28/25 15:57 Oxygen Delivery Method Room Air 08/28/25 15:57 Medical Decision Making MDM Narrative Medical decision making narrative: This is a 25-year-old female who is 2 months that presented to the emergency departments with complaints of rectal pain for a few days with inability to have a bowel movement secondary to the pain. 3 days ago she had a large bowel movement that she thinks caused an anal fissure. She does have a hemorrhoid but this has been since and nonpainful. She is still taking her stool softeners. She tried to have a bowel movement yesterday but the pain was too great in her rectum. She has tried multiple home remedies for the pain. She denies fever, night sweats, or chills at home. She denies abdominal pain. On arrival patient is in no distress, vitals are hemodynamically stable. Patient is afebrile at 98 ?F. We did discuss disimpaction and she states that she does not want this she just wants something to help relieve her pain so she can go on her own. 2% Lidocaine jelly applied to rectum in ED. Toradol 30mg given IM for pain. Patient's pain improved. She declines further workup up or intervention. Plan will be to continue NSAIDs, sitz baths, and stool softeners at home. Return precautions were discussed such as if she develops systemic symptoms, persistent pain, or any new or worsening symptoms she should return to the ER for evaluation. Patient's pain was controlled and she was discharged with plan for follow up with PCP. Clinical impression Internal hemorrhoids Differential Diagnosis Differential Diagnosis: Anal fissure, hemorrhoid, constipation Discharge Plan Discharge Chief Complaint: Abdominal Pain Clinical Impression: Acute hemorrhoid Patient Disposition: Home, Self-Care Time of Disposition Decision: 16:51 Condition: Good Mode of Transportation: Private Vehicle Prescriptions / Home Meds: No Action bupropion HCl 75 mg tablet 75 mg PO DAILY Rx Instructions: administer 6 hours apart doxycycline hyclate 100 mg capsule 100 mg PO BID 7 Days Qty: 14 0RF ibuprofen 800 mg tablet 800 mg PO Q8H PRN (Reason: pain) 14 Days Qty: 40 0RF Print Language: Yemeni Instructions: Hemorrhoids (ED), Sitz Bath (DC) Additional Instructions: Constipation Management: * Continue docusate sodium * Add polyethylene glycol (Miralax) 17g daily * May use senna if no BM within 24?48 hours Supportive Measures: * Warm sitz baths TID for 10?15 minutes * High-fiber diet, increased fluid intake * Avoid straining; recommend squatting or footstool for toileting Education & Reassurance: * Hemorrhoids are common in women; conservative measures often effective * Internal hemorrhoids can cause significant pain without external signs * Monitor for signs of thrombosis, bleeding, or infection Referrals: JAZMINE LLANES [Primary Care Provider, Family Practice] - 1 week Discharge Date/Time: 08/28/25 17:02 Documented by User: Silke Bhatti MD 08/29/25 14:49 HPI HPI - General Adult General Chief complaint: Abdominal Pain Stated complaint: BOWEL ISSUES Time Seen by Provider: 08/28/25 16:02 Related Data Home Medications ?Medication ?Instructions ?Recorded ?Confirmed bupropion HCl 75 mg tablet 75 mg PO DAILY 04/04/24 Previous Rx's ?Medication ?Instructions ?Recorded doxycycline hyclate 100 mg capsule 100 mg PO BID 7 day s #14 caps 04/04/24 ibuprofen 800 mg tablet 800 mg PO Q8H PRN pain 14 da ys #40 04/04/24 tabs Allergies Allergy/AdvReac Type Severity Reaction Status Date / Time No Known Drug Allergies Allergy Verified 08/28/25 15:57 PFSH PFSH Medical History (Updated 08/28/25 @ 16:54 by JUAN Naki) Scoliosis ?M41.9 - Scoliosis, unspecified (ICD-10) Missed ?O02.1 - Missed (ICD-10) Depression ?F32.A - Depression, unspecified (ICD-10) Surgical History (Updated 04/04/24 @ 06:43 by Rebecca Sheth, RN) No history of previous surgery Family History (Updated 04/04/24 @ 06:43 by Rebecca Sheth, YOLANDA) Other Family history of cancer Family history of hypertension Social History (Updated 04/04/24 @ 06:45 by Rebecca Sheth, RN) Within the past year, how often did you have a drink containing alcohol: 2-3 times a week Within the past year, how many standard drinks containing alcohol did you have on a typical day: 1 or 2 Within the past year, how often did you have six or more drinks on one occasion: less than monthly Total score: 1 Score interpretation: A score of 3 or more indicates drinking is likely to affect patient's safety. Do you use any of these nicotine containing products: vaping products Second hand tobacco smoke exposure: No Non-prescribed substance use: denies use Previous occupational history: [employer]- [employer] Known occupational exposures/hazards: No Highest level of school completed/degree received: high school graduate Little interest or pleasure in doing things: not at all Feeling down, depressed, or hopeless: not at all Exam Constitutional Vital Signs, click to edit/add: Last Vital Signs Temp 98 F 08/28/25 15:57 Pulse 77 08/28/25 15:57 Resp 16 08/28/25 15:57 BP 119/83 08/28/25 15:57 Pulse Ox 100 08/28/25 15:57 O2 Del Method Room Air 08/28/25 15:57 Course Vital Signs Vital signs: Vital Signs Temperature 98 F 08/28/25 15:57 Pulse Rate 77 08/28/25 15:57 Respiratory Rate 16 08/28/25 15:57 Blood Pressure 119/83 08/28/25 15:57 Pulse Oximetry 100 08/28/25 15:57 Oxygen Delivery Method Room Air 08/28/25 15:57 Temperature 98 F 08/28/25 15:57 Pulse Rate 77 08/28/25 15:57 Respiratory Rate 16 08/28/25 15:57 Blood Pressure 119/83 08/28/25 15:57 Pulse Oximetry 100 08/28/25 15:57 Oxygen Delivery Method Room Air 08/28/25 15:57 Medical Decision Making MDM Narrative Medical decision making narrative: This is a 25-year-old female who is 2 months that presented to the emergency departments with complaints of rectal pain for a few days with inability to have a bowel movement secondary to the pain. 3 days ago she had a large bowel movement that she thinks caused an anal fissure. She states she looked in the mirror and saw 1. She does have a hemorrhoid but this has been since and nonpainful. She is still taking her stool softeners. She tried to have a bowel movement yesterday but the pain was too great in her rectum. She has tried multiple home remedies for the pain. She denies fever, night sweats, or chills at home. She denies abdominal pain. On arrival patient is in no distress, vitals are hemodynamically stable. Patient is afebrile at 98 ?F. We did discuss disimpaction and she states that she does not want this she just wants something to help relieve her pain so she can go on her own. 2% Lidocaine jelly applied to rectum in ED. Toradol 30mg given IM for pain. Clinical impression external hemorrhoids Discharge Plan Discharge Chief Complaint: Abdominal Pain Clinical Impression: Acute hemorrhoid Patient Disposition: Home, Self-Care Time of Disposition Decision: 16:51 Condition: Good Mode of Transportation: Private Vehicle Prescriptions / Home Meds: No Action bupropion HCl 75 mg tablet 75 mg PO DAILY Rx Instructions: administer 6 hours apart doxycycline hyclate 100 mg capsule 100 mg PO BID 7 Days Qty: 14 0RF ibuprofen 800 mg tablet 800 mg PO Q8H PRN (Reason: pain) 14 Days Qty: 40 0RF Print Language: Yemeni Instructions: Hemorrhoids (ED), Sitz Bath (DC) Additional Instructions: Constipation Management: * Continue docusate sodium * Add polyethylene glycol (Miralax) 17g daily * May use senna if no BM within 24?48 hours Supportive Measures: * Warm sitz baths TID for 10?15 minutes * High-fiber diet, increased fluid intake * Avoid straining; recommend squatting or footstool for toileting Education & Reassurance: * Hemorrhoids are common in women; conservative measures often effective * Internal hemorrhoids can cause significant pain without external signs * Monitor for signs of thrombosis, bleeding, or infection Referrals: JAZMINE LLANES [Primary Care Provider, Family Practice] - 1 week Discharge Date/Time: 08/28/25 17:02
== END 2025-08-28 17:02 | disposition home or self-care (01) ==
PROVIDERS: Emergency Provider Emergency Medicine; PCP Family Medicine
DX: K64.8 Other hemorrhoids (principal); F17.290 Nicotine dependence, other tobacco product, uncomplicated
CPT/HCPCS: 96372; 99284; J1885